=== PATIENT | female | born 1945 | race Caucasian/White ===

== ENCOUNTER 2017-04-24 11:36 | Outpatient (CLI) | payer MEDICARE, OTHER | END 2017-04-24 11:53 | LOC: D.MAMMO 11:36 | DX: Z12.31 Encounter for screening mammogram for malignant neoplasm of breast (principal) ==

== ENCOUNTER 2018-01-23 07:56 | Inpatient (IN) | payer MEDICARE, OTHER ==
[~2018-01-23] VITALS: Ht 172.7 cm; Wt 115.1 kg
--- NOTE | ~2018-01-23 | DS ---
PATIENT:SOTO BATES :47 MEDICAL RECORD: [id number] DISCHARGE SUMMARY ADMISSION DATE: 01/23/18 DISCHARGE DATE: 02/09/18 DATE OF ADMISSION: 01/23/2018. DATE OF DISCHARGE: 02/09/2018. ADMISSION DIAGNOSES: 1. Ventral hernia with large bowel obstruction. 2. Diabetes mellitus. 3. Hypertension. 4. Morbid obesity. 5. Chronic kidney disease. 6. Anemia of chronic kidney disease. DISCHARGE DIAGNOSES: 1. Ventral hernia with large bowel obstruction. 2. Diabetes mellitus. 3. Hypertension. 4. Morbid obesity. 5. Chronic kidney disease. 6. Anemia of chronic kidney disease. 7. Atrial fibrillation/flutter. 8. Sslnz-qo-nmnauaa kidney disease. PROCEDURE: Ventral hernia repair with removal of fibrinous fluid collection on 01/24/2018. CONSULTATIONS: To cardiology with Dr. Rodrigez, Nephrology with Dr. Kolb, hematology and oncology with Dr. Manning. REPORT OF HOSPITALIZATION: The patient was admitted to the hospital with abdominal pain and findings of an incarcerated hernia with partial large bowel obstruction secondary to this. The patient was able to be partially reduced with improvement in her symptoms and the following day, she was taken to the operating room where she underwent a ventral hernia repair with mesh and also removal of a large fibrinous anterior abdominal wall pocket that had no purulent material present. Postoperatively, the patient went into atrial fibrillation, so she was maintained in the hospital and cardiology was consulted. The patient was felt to have findings concerning for congestive heart failure and possibly a non-ST elevated ME. Cardiology wished to take the patient for a catheterization, but her kidney function quickly elevated and nephrology had to see the patient. There was concern over her worsening renal function and the catheterization was held off during this hospitalization. She was maintained in the hospital for a long time as they addressed her kidney function and felt that it was likely secondary to her diabetes mellitus. The decision for a biopsy of the kidney was held off for the time being secondary to the fact that the patient was on anticoagulants and it was felt that it was vital for the patient to stay on anticoagulants for her heart function. Eventually the patient's kidney function stabilized and actually improved and she began to diurese appropriately. Dr. Manning with hematology and oncology was consulted for anemia and possibly a lymphoproliferative disorder, still a lot of workup was performed and it was felt this was likely not a malignant process that was going on. Eventually, the patient recovered nicely and despite the fact she still had some DISCHARGE SUMMARY REPORT [id number] SUIT,NONDADEE vsrqb-vi-[id number] kidney disease, she was felt to be stable for discharge home. DISCHARGE INSTRUCTIONS: Return to clinic with any questions or concerns, fevers, chills, nausea, vomiting or worsening abdominal pain. ACTIVITIES: No heavy lifting or straining for 6 weeks postoperatively. DISCHARGE MEDICATIONS: Resume home medications with the inclusion of Lasix 60 mg b.i.d. and Olancha 10 p.r.n. FOLLOWUP: With nephrology, cardiology, and with Dr. Yañez in about 7-10 days. TRANSINT:[id number] Voice Confirmation ID: [id number] DOCUMENT ID: [id number] JORDAN YAÑEZ MD at 0922 CC: [id number] DICTATION DATE: 03/04/18 1352 METAL CONTAINER MAKER: 03/04/18 1423 DIS IN 02/09/18 [place] [id number] [place] [address]
--- NOTE | ~2018-01-23 | EC ---
PATIENT:JAMES BATESE DATE OF SERVICE: 01/23/18 SEX: F MEDICAL RECORD: [id number] DATE OF : 47 LOCATION:D.M2 D.211 AGE OF PATIENT: 72 ADMISSION DATE: 01/23/18 REFERRING PHYSICIAN: INTERPRETING PHYSICIAN: MODE RODRIGEZ MD ECHOCARDIOGRAM REPORT ECHO CHARGES 7 ECHO w/CONTRAST CLINICAL DIAGNOSIS: CONTRAST ECHO TO ASSESS EF AND WALL MOTION ECHOCARDIOGRAPHIC MEASUREMENTS (adult normal given) AC root (d.<3.7cm) 3.0 cm LV Septum d (<1.2 cm> 1.4 cm Valve Excursion 0.8 cm LV Septum (systole) 1.8 cm Left Atria (s.<4.0cm> 4.3 cm LVPW d(<1.2cm) 1.5 cm RV (d.<2.3cm) 2.0 cm LVPW (sytole) 2.0 cm LV diastole(<5.6CM) 5.1 cm MV E-F(>70mm/sec) cm LV systole 3.9 cm LVOT Diameter 1.8 cm MV exc.(>10mm) cm Est.ejection fraction (50-75%) % Pericardial Effusion N DOPPLER: LVIT cm/sec A cm/sec E 101 cm/sec LA cm/sec RVSP 22.0 mmHg LVOT 85.0 cm/sec AOP1/2T m/s Asc. Ao 179 cm/sec RVOT 61.0 cm/sec RA cm/sec PA 74.0 cm/sec AV Gradient Peak 13.0 mmHg AV Mean 6.2 mmHg AV Area 1.1 cm MV Gradient Peak 7.6 mmHg MV Mean 2.3 mmHg MV Area cm COMMENTS: Imaging Aide: 2 MIRZA WOOD Vp: 4 Dr. Rodrigez TAPE# PACSA DATE OF SERVICE: 02/04/2018 The patient underwent a contrasted echocardiogram. FINDINGS: The patient had contrasted material injected prior to visualization with the echocardiogram. We had excellent imaging after the contrast was injected and in fact showed no wall motion abnormalities now and ejection fraction had improved to 55%. The patient was seen to be in a normal rhythm during the procedure versus atrial flutter with controlled rate with marked improvement in her overall function without wall motion abnormalities as ECHOCARDIOGRAM REPORT [id number] SOTO BATES previously indicated. TRANSINT:[id number] Voice Confirmation ID: [id number] DOCUMENT ID: [id number] 02/11/2018 Edited to correct date of service, dmm. MODE RODRIGEZ MD at 1001 CC: [id number] DICTATION DATE: 02/05/18819 HELP DESK MANAGER: 02/05/18 1042 DIS IN 02/09/18 [place] [id number]
--- NOTE | ~2018-01-23 | OP ---
PATIENT NAME: SOTO BATES MEDICAL RECORD: [id number] :47 LOCATION:D.M2 D.2118 ADMISSION DATE:01/23/18 SURGEON: CARLOS YAÑEZ MD DATE OF OPERATION: 01/24/2018 PREOPERATIVE DIAGNOSES: 1. Ventral hernia. 2. Partial large bowel obstruction. POSTOPERATIVE DIAGNOSES: 1. Ventral hernia. 2. Partial large bowel obstruction. PROCEDURE: 1. Ventral hernia repair with an 11.4 cm Proceed mesh. 2. Drainage of anterior abdominal wall, cystic cavity. SURGEON: Carlos Yañez MD REPORT OF PROCEDURE: The patient's abdomen was prepped and draped in sterile fashion. A longitudinal incision was made overlying the hernia. We dissected down through the subcutaneous tissues and penetrated the hernia sac. Once in the hernia sac, we saw there was a large bowel and omentum present. None of this appeared to be necrotic. The hernia sac was dissected down on all sides and was excised down at the fascial edges. After we did this, we could see there actually a couple of other smaller hernia defects present. The fascial bridges were opened up on these defects and at this point, we were able to completely reduce the colon and omentum back into the abdominal cavity. We made sure to free up the edges of the hernia defect and saw there were 2 smaller ones just inferiorly, they were both less than a centimeter in size. The largest hernia defect was 4 cm long x 7cm wide. The fascia was cleared off in all directions. On the top and bottom surface any adhesions that would have been the way were taken down using electrocautery. Just inferior in the midline was a firm pocket that had been seen on CT scan. This pocket was not inflamed and not tender, but have been present for quite some time. The pocket was penetrated and there was no purulent material or fluid present, but there was some old necrotic/proteinaceous type material present and this was irrigated out and suctioned free. The pocket itself had inflammatory lott that did not appear to be infectious in anyway and did not appear to be cancerous. We removed the anterior surface of these lott and left the fascial surface intact. The anterior surface lott were sent off for permanent specimen. We then irrigated out the wound one last time with peroxide and saline. We then inserted the 11.4 cm Proceed mesh and sutured it into place in an underlay fashion using multiple interrupted 0 Prolene. The wound was irrigated one last time and the fascia was closed transversely using running #1 looped PDS. A 19-Pashto Sam drain was then inserted through the right lower quadrant and placed into the subcutaneous pouch overlying the fascial defect in this other pocket. The subcutaneous tissues were then reapproximated with interrupted 3-0 Vicryls and the skin was closed with ellie. COMPLICATIONS: None. CONDITION: Stable. ANESTHESIA: General endotracheal. OPERATIVE REPORT [id number] SUIT,NONDADEE BLOOD LOSS: 50 mL. TRANSINT:[id number] Voice Confirmation ID: [id number] DOCUMENT ID: [id number] CARLOS YAÑEZ MD at 1319 CC: CURT WILLAMS [id number] DICTATION DATE: 01/24/18 1300 WAREHOUSEMAN: 01/24/18 1328 ADM IN [place] [id number] [place] [id number]
--- NOTE | ~2018-01-23 | EC ---
PATIENT:PAULO,NONDADEE DATE OF SERVICE: 01/23/18 SEX: F MEDICAL RECORD: [id number] DATE OF : 47 LOCATION:D.M2 D.211 AGE OF PATIENT: 72 ADMISSION DATE: 01/23/18 REFERRING PHYSICIAN: INTERPRETING PHYSICIAN: MODE PENA MD ECHOCARDIOGRAM REPORT ECHO CHARGES 4 ECHO COMPLETE CLINICAL DIAGNOSIS: FLUTTER/TACHYCARDIA ECHOCARDIOGRAPHIC MEASUREMENTS (adult normal given) AC root (d.<3.7cm) 3.0 cm LV Septum d (<1.2 cm> 1.4 cm Valve Excursion 0.8 cm LV Septum (systole) 1.8 cm Left Atria (s.<4.0cm> 4.3 cm LVPW d(<1.2cm) 1.5 cm RV (d.<2.3cm) 2.0 cm LVPW (sytole) 2.0 cm LV diastole(<5.6CM) 5.1 cm MV E-F(>70mm/sec) cm LV systole 3.9 cm LVOT Diameter 1.8 cm MV exc.(>10mm) cm Est.ejection fraction (50-75%) % Pericardial Effusion N DOPPLER: LVIT cm/sec A cm/sec E 101 cm/sec LA cm/sec RVSP 22.0 mmHg LVOT 85.0 cm/sec AOP1/2T m/s Asc. Ao 179 cm/sec RVOT 61.0 cm/sec RA cm/sec PA 74.0 cm/sec AV Gradient Peak 13.0 mmHg AV Mean 6.2 mmHg AV Area 1.1 cm MV Gradient Peak 7.6 mmHg MV Mean 2.3 mmHg MV Area cm COMMENTS: Assistant To The Vice President: Frederic DOHERTYOE Cloth Checker: 4 Dr. Pena TAPE# PACS DATE OF SERVICE: 01/26/2018 PROCEDURE: Transthoracic echocardiogram. INDICATION: The patient has atrial flutter with rapid ventricular response. FINDINGS: 1. The left ventricle is difficult to visualize, but there appears to be anterior hypokinesis and overall ejection fraction of 30%, which may be a reflection of her heart rate, but also regional wall motion abnormality is seen. ECHOCARDIOGRAM REPORT [id number] PAULO,NONDADEE 2. Left atrium has mild dilatation. 3. Aortic valve is sclerotic and normal. 4. The mitral valve is not well visualized, but overall normal function with mild mitral regurgitation. Inflow characteristics were not helpful because of the presence of atrial flutter. 5. Tricuspid valve has mild tricuspid regurgitation. 6. The pericardium is normal. 7. Right ventricle is normal size, normal function. 8. The right atrium is mildly dilated. IMPRESSION: The patient does have regional wall motion abnormalities, evidence of left ventricular hypertrophy. The patient's cardiomyopathy may be ischemic in origin. TRANSINT:[id number] Voice Confirmation ID: [id number] DOCUMENT ID: [id number] 01/29/2018 Edited to correct date of service, dm. MODE PENA MD at 1115 CC: [id number] DICTATION DATE: 01/27/18 0733 PLASTIC PRINTER: 01/27/18 0952 ADM IN [place] [address] [place] [address]
[2018-01-23 08:48] LABS: BASOPHILS 0.2 % (0-2); HEMATOCRIT 31.8 % (36.0-48.0); HEMOGLOBIN 10.4 g/dL (12-16); IMMATURE GRANULOCYTES 0.4 % (0-5); LYMPHOCYTES 5.4 % (15-50); MCH 27.4 pg (26.0-34.0); MCHC 32.7 g/dL (31.0-37.0); MCV 83.9 fL (80.0-100.0); MEAN PLATELET VOLUME 9.8 fL (7.4-10.4); MONOCYTES 3.6 % (2-11); NEUTROPHILS 88.4 % (40-80); PLATELET COUNT 243 10x3/uL (130-400); RBC 3.79 10x6/uL (4.00-5.40); RDW 15.9 % (11.5-14.5)
[2018-01-23 09:19] LABS: ALBUMIN 3.1 g/dL (3.4-5.0); ANION GAP 17.9 mmol/L (8-16); BILIRUBIN - TOTAL 0.17 mg/dL (0.2-1.3); CALCIUM 8.3 mg/dL (8.5-10.1); CARBON DIOXIDE 19.1 mmol/L (21.0-32.0); CREATININE - SERUM 2.6 mg/dL (0.6-1.3); PROTEIN - SERUM 6.7 g/dL (6.4-8.2)
[2018-01-23 09:57] LABS: APPEARANCE SLT CLOUDY (CLEAR); COLOR YELLOW (YELLOW); SPECIFIC GRAVITY 1.015 (1.005-1.020)
[2018-01-23 09:58] LABS: AMORPHOUS SEDIMENT <1+ /lpf (NONE SEEN); BACTERIA MODERATE /hpf (NONE SEEN); BILIRUBIN NEGATIVE (NEGATIVE); EPITHELIAL CELLS OCC /hpf (0-5); GLUCOSE 100 mg/dL (NEGATIVE); KETONE NEGATIVE (NEGATIVE); MUCUS <1+ /lpf (NONE SEEN); NITRITE NEGATIVE (NEGATIVE); PROTEIN 3+ mg/dL (NEGATIVE); RED CELLS - URINE OCC /hpf (0-5); UROBILINOGEN NORMAL (NORMAL); WHITE CELLS - URINE OCC /hpf (0-5)
[2018-01-23] MEDS ORDERED: EFFEXOR37.5 MG PO (17:18)
[2018-01-23] MEDS ORDERED: CARDURA4 MG PO (17:19)
[2018-01-23] MEDS ORDERED: SYNTHROID50 MCG PO (17:20)
[2018-01-23] MEDS ORDERED: GLUCOTROL XL 1010 MG PO (17:21)
[2018-01-23] MEDS ORDERED: NORVASC10 MG PO (17:21)
[2018-01-23] MEDS ORDERED: VITAMIN D250000 UNIT PO (17:22)
[2018-01-23] MEDS ORDERED: KLOR-CON M2020 MEQ (17:23)
[2018-01-23] MEDS ORDERED: LIPITOR80 MG PO (17:24)
[2018-01-23] MEDS ORDERED: METOPROLOL TART25 MG PO (17:24)
[2018-01-23] MEDS ORDERED: JANUVIA50 MG PO (17:25)
[2018-01-23] MEDS ORDERED: COZAAR100 MG PO (17:27)
[2018-01-23] MEDS ORDERED: ACETAMINOPHEN325 MG PO (17:27)
[2018-01-23 19:04] VITALS: BP 133/64; BMI 35.0
[2018-01-23 20:00] VITALS: BP 135/72
[2018-01-24] VITALS (14 sets, daily range): BP systolic 117–153; BP diastolic 69–91; BMI 34.9
[2018-01-24 04:38] LABS: BASOPHILS 0.3 % (0-2); HEMATOCRIT 27.8 % (36.0-48.0); HEMOGLOBIN 8.9 g/dL (12-16); IMMATURE GRANULOCYTES 0.2 % (0-5); LYMPHOCYTES 7.3 % (15-50); MCH 27.2 pg (26.0-34.0); MEAN PLATELET VOLUME 10.3 fL (7.4-10.4); MONOCYTES 6.3 % (2-11); NEUTROPHILS 82.9 % (40-80); PLATELET COUNT 223 10x3/uL (130-400); RBC 3.27 10x6/uL (4.00-5.40); WBC 10.6 10x3/uL (4.8-10.8)
[2018-01-24 04:54] LABS: ANION GAP 12.2 mmol/L (8-16); CALCIUM 7.6 mg/dL (8.5-10.1); CREATININE - SERUM 2.3 mg/dL (0.6-1.3); POTASSIUM - SERUM 3.2 mmol/L (3.5-5.1)
[2018-01-25 04:00] VITALS: BP 149/79
[2018-01-25 09:19] VITALS: BP 109/75
[2018-01-25 12:45] VITALS: BP 153/79
[2018-01-25 14:45] VITALS: BP 144/82
[2018-01-25 21:18] VITALS: BP 145/84
[2018-01-26] VITALS: BP 178/94
[2018-01-26 04:00] VITALS: BP 157/92
[2018-01-26 08:33] VITALS: BP 155/91
[2018-01-26 10:49] LABS: CKMB 11.5 U/L (0.0-3.6); CREATINE KINASE 884 UL (21-215)
[2018-01-26 12:36] VITALS: BP 118/75
[2018-01-26 15:52] VITALS: Ht 172.7 cm; Wt 115.1 kg
[2018-01-26 16:13] LABS: CKMB 8.2 U/L (0.0-3.6); CREATINE KINASE 782 UL (21-215); TROPONIN-I 0.038 ng/mL (0.000-0.060)
[2018-01-26 17:01] VITALS: BP 136/73
[2018-01-26 20:00] VITALS: BP 145/79
[2018-01-26 22:38] LABS: CREATINE KINASE 743 UL (21-215); TROPONIN-I 0.027 ng/mL (0.000-0.060)
[2018-01-27] VITALS (7 sets, daily range): BP systolic 106–138; BP diastolic 62–89
[2018-01-27 19:55] LABS: BASOPHILS 0.2 % (0-2); EOSINOPHILS 4.3 % (0-7); HEMATOCRIT 26.4 % (36.0-48.0); HEMOGLOBIN 8.3 g/dL (12-16); IMMATURE GRANULOCYTES 0.7 % (0-5); LYMPHOCYTES 7.3 % (15-50); MCH 27.3 pg (26.0-34.0); MCHC 31.4 g/dL (31.0-37.0); MCV 86.8 fL (80.0-100.0); MEAN PLATELET VOLUME 9.8 fL (7.4-10.4); MONOCYTES 6.9 % (2-11); NEUTROPHILS 80.6 % (40-80); PLATELET COUNT 265 10x3/uL (130-400); RBC 3.04 10x6/uL (4.00-5.40); RDW 16.5 % (11.5-14.5); WBC 12.1 10x3/uL (4.8-10.8)
[2018-01-27 20:08] LABS: ANION GAP 5.6 mmol/L (8-16); CALCIUM 8.5 mg/dL (8.5-10.1); CARBON DIOXIDE 21.3 mmol/L (21.0-32.0); CREATININE - SERUM 3.6 mg/dL (0.6-1.3); POTASSIUM - SERUM 3.9 mmol/L (3.5-5.1)
[2018-01-28 04:00] VITALS: BP 123/59
[2018-01-28 08:06] VITALS: BP 128/59
[2018-01-28 11:14] VITALS: BP 132/66
[2018-01-28 14:56] VITALS: BP 137/72
[2018-01-28 20:56] VITALS: BP 124/59
[2018-01-29 01:20] VITALS: BP 130/75
[2018-01-29 05:43] LABS: BASOPHILS 0.3 % (0-2); EOSINOPHILS 5.2 % (0-7); HEMOGLOBIN 9.5 g/dL (12-16); IMMATURE GRANULOCYTES 0.6 % (0-5); LYMPHOCYTES 10.1 % (15-50); MCH 27.5 pg (26.0-34.0); MCHC 31.7 g/dL (31.0-37.0); MEAN PLATELET VOLUME 9.9 fL (7.4-10.4); MONOCYTES 8.7 % (2-11); NEUTROPHILS 75.1 % (40-80); PLATELET COUNT 265 10x3/uL (130-400); RBC 3.45 10x6/uL (4.00-5.40); RDW 16.2 % (11.5-14.5)
[2018-01-29 05:46] LABS: WBC 8.8 10x3/uL (4.8-10.8)
[2018-01-29 06:05] LABS: ANION GAP 14.1 mmol/L (8-16); CALCIUM 8.6 mg/dL (8.5-10.1); CARBON DIOXIDE 23.2 mmol/L (21.0-32.0); CREATININE - SERUM 3.6 mg/dL (0.6-1.3); POTASSIUM - SERUM 4.3 mmol/L (3.5-5.1)
[2018-01-29 06:40] VITALS: BP 138/75
[2018-01-29 08:04] VITALS: BP 130/68
[2018-01-29 08:33] LABS: COMPLEMENT C4 23.1 mg/dL (17.4-52.2)
[2018-01-29 09:20] LABS: ERYTHROCYTE SEDIMENTATION RATE 57 mm/hr (0-30)
[2018-01-29 11:04] VITALS: BP 126/72
[2018-01-29 12:14] LABS: APPEARANCE CLEAR (CLEAR); BACTERIA FEW /hpf (NONE SEEN); BILIRUBIN NEGATIVE (NEGATIVE); COLOR YELLOW (YELLOW); EPITHELIAL CELLS 0-5 /hpf (0-5); GLUCOSE NEGATIVE (NEGATIVE); KETONE NEGATIVE (NEGATIVE); MUCUS >1+ /lpf (NONE SEEN); NITRITE NEGATIVE (NEGATIVE); PROTEIN 3+ mg/dL (NEGATIVE); RED CELLS - URINE 0-5 /hpf (0-5); SPECIFIC GRAVITY 1.015 (1.005-1.020); UROBILINOGEN NORMAL (NORMAL); WHITE CELLS - URINE OCC /hpf (0-5)
[2018-01-29 14:39] VITALS: BP 134/69
[2018-01-29 20:39] VITALS: BP 149/74
[2018-01-30] VITALS: BP 116/49
[2018-01-30 04:53] VITALS: BP 114/66
[2018-01-30 06:01] LABS: BASOPHILS 0.4 % (0-2); EOSINOPHILS 6.1 % (0-7); HEMATOCRIT 30.1 % (36.0-48.0); HEMOGLOBIN 9.5 g/dL (12-16); IMMATURE GRANULOCYTES 0.9 % (0-5); MCH 27.4 pg (26.0-34.0); MCHC 31.6 g/dL (31.0-37.0); MCV 86.7 fL (80.0-100.0); MEAN PLATELET VOLUME 9.9 fL (7.4-10.4); MONOCYTES 8.6 % (2-11); PLATELET COUNT 286 10x3/uL (130-400); RBC 3.47 10x6/uL (4.00-5.40); RDW 15.9 % (11.5-14.5)
[2018-01-30 07:10] LABS: CALC OSMOLALITY 300 mosm/kg (275-300); CALCIUM 8.5 mg/dL (8.5-10.1); CARBON DIOXIDE 23.5 mmol/L (21.0-32.0); CHLORIDE - SERUM 109 mmol/L (98-107); CKMB 4.1 U/L (0.0-3.6); CREATINE KINASE 484 UL (21-215); CREATININE - SERUM 3.6 mg/dL (0.6-1.3); GLUCOSE 126 mg/dL (74-106); PHOSPHOROUS 5.1 mg/dL (2.5-4.9); SODIUM 142 mmol/L (136-145); UREA NITROGEN 57 mg/dL (7-18); eGFR NON AFRICAN AMERICAN 13 mL/min (90-120)
[2018-01-30 08:09] VITALS: BP 124/59
[2018-01-30 08:20] LABS: HEPATITIS C ANTIBODY 0.1 (0.0-0.9)
[2018-01-30 11:19] VITALS: BP 141/70
[2018-01-30 13:15] LABS: ANA REFLEX - DIRECT Negative (Negative)
[2018-01-30 15:22] VITALS: BP 115/60
[2018-01-30 20:59] VITALS: BP 164/74
[2018-01-31 00:36] VITALS: BP 142/75
[2018-01-31 00:43] LABS: CREATININE - URINE 54.1 mg/dL (30-125); PROTEIN - URINE 86.2 mg/dL (0.0-11.9)
[2018-01-31 05:37] LABS: BASOPHILS 0.5 % (0-2); EOSINOPHILS 6.7 % (0-7); HEMATOCRIT 31.3 % (36.0-48.0); HEMOGLOBIN 9.7 g/dL (12-16); IMMATURE GRANULOCYTES 0.8 % (0-5); LYMPHOCYTES 16.2 % (15-50); MCH 27.3 pg (26.0-34.0); MCV 88.2 fL (80.0-100.0); MONOCYTES 8.6 % (2-11); NEUTROPHILS 67.2 % (40-80); PLATELET COUNT 310 10x3/uL (130-400); RBC 3.55 10x6/uL (4.00-5.40); RDW 15.8 % (11.5-14.5); WBC 8.7 10x3/uL (4.8-10.8)
[2018-01-31 05:47] LABS: ANION GAP 14.9 mmol/L (8-16); CALCIUM 8.1 mg/dL (8.5-10.1); CARBON DIOXIDE 23.5 mmol/L (21.0-32.0); CREATININE - SERUM 3.5 mg/dL (0.6-1.3); MAGNESIUM - SERUM 2.8 mg/dL (1.8-2.4); PHOSPHOROUS 5.8 mg/dL (2.5-4.9); POTASSIUM - SERUM 4.4 mmol/L (3.5-5.1)
[2018-01-31 07:28] LABS: UPE RAND - ALPHA 1 GLOBULIN 5.2 % (()); UPE RAND - BETA GLOBULIN 13.2 % (()); UPE RAND - GAMMA GLOBULIN 19.5 % (())
[2018-01-31 08:18] LABS: SPE - A/G RATIO 0.7 (0.7-1.7); SPE - ALBUMIN 2.3 g/dL (2.9-4.4); SPE - ALPHA-1 GLOBULIN 0.5 g/dL (0.0-0.4); SPE - BETA GLOBULIN 0.8 g/dL (0.7-1.3); SPE - GAMMA GLOBULIN 0.9 g/dL (0.4-1.8); SPE - M-SPIKE Not Observed g/dL (Not Observed); SPE - TOTAL PROTEIN 5.6 g/dL (6.0-8.5)
[2018-01-31 08:18] LABS: ANTI-GLOMERULAR BASMENT MEMBRN 5 units (0-20)
[2018-01-31 08:39] VITALS: BP 127/64
[2018-01-31 14:23] VITALS: BP 114/73
[2018-01-31 16:01] VITALS: BP 120/58
[2018-01-31 16:14] LABS: ANCA - ANTIMYELOPEROXIDASE <9.0 U/mL (0.0-9.0); ANCA - ANTIPROTEINASE 3 <3.5 U/mL (0.0-3.5); ANCA - ATYPICAL <1:20 titer (Neg:<1:20); ANCA - CYTOPLASMIC <1:20 titer (Neg:<1:20); ANCA - PERINUCLEAR <1:20 titer (Neg:<1:20)
[2018-01-31 19:00] VITALS: BP 134/65
[2018-02-01] VITALS: BP 138/60
[2018-02-01 04:00] VITALS: BP 116/69
[2018-02-01 04:40] LABS: BASOPHILS 0.6 % (0-2); EOSINOPHILS 6.9 % (0-7); HEMATOCRIT 30.8 % (36.0-48.0); HEMOGLOBIN 9.4 g/dL (12-16); LYMPHOCYTES 14.4 % (15-50); MCH 27.1 pg (26.0-34.0); MCHC 30.5 g/dL (31.0-37.0); MCV 88.8 fL (80.0-100.0); MEAN PLATELET VOLUME 9.7 fL (7.4-10.4); MONOCYTES 8.8 % (2-11); NEUTROPHILS 68.3 % (40-80); PLATELET COUNT 289 10x3/uL (130-400); RBC 3.47 10x6/uL (4.00-5.40); RDW 15.9 % (11.5-14.5); WBC 8.8 10x3/uL (4.8-10.8)
[2018-02-01 04:56] LABS: ANION GAP 13.7 mmol/L (8-16); CALCIUM 8.2 mg/dL (8.5-10.1); CARBON DIOXIDE 24.2 mmol/L (21.0-32.0); CREATININE - SERUM 3.4 mg/dL (0.6-1.3); PHOSPHOROUS 5.5 mg/dL (2.5-4.9); POTASSIUM - SERUM 3.9 mmol/L (3.5-5.1)
[2018-02-01 07:46] VITALS: BP 129/68
[2018-02-01 11:39] VITALS: BP 126/69
[2018-02-01 15:34] VITALS: BP 143/70
[2018-02-01 20:00] VITALS: BP 138/65
[2018-02-02 04:00] VITALS: BP 136/72
[2018-02-02 05:43] LABS: BASOPHILS 0.5 % (0-2); EOSINOPHILS 5.8 % (0-7); HEMATOCRIT 29.2 % (36.0-48.0); IMMATURE GRANULOCYTES 0.8 % (0-5); LYMPHOCYTES 8.9 % (15-50); MCH 27.4 pg (26.0-34.0); MCHC 30.8 g/dL (31.0-37.0); MCV 88.8 fL (80.0-100.0); MONOCYTES 8.6 % (2-11); NEUTROPHILS 75.4 % (40-80); PLATELET COUNT 301 10x3/uL (130-400); RBC 3.29 10x6/uL (4.00-5.40); RDW 15.8 % (11.5-14.5); WBC 9.9 10x3/uL (4.8-10.8)
[2018-02-02 06:06] LABS: ANION GAP 13.4 mmol/L (8-16); CALCIUM 8.5 mg/dL (8.5-10.1); CARBON DIOXIDE 24.5 mmol/L (21.0-32.0); CREATININE - SERUM 3.2 mg/dL (0.6-1.3); PHOSPHOROUS 6.2 mg/dL (2.5-4.9); POTASSIUM - SERUM 3.9 mmol/L (3.5-5.1)
[2018-02-02 08:59] VITALS: BP 155/83
[2018-02-02 13:10] VITALS: BP 121/61
[2018-02-02 15:55] VITALS: BP 139/70
[2018-02-02 19:36] VITALS: BP 140/78
[2018-02-03 01:33] VITALS: BP 111/54
[2018-02-03 05:53] VITALS: BP 129/64
[2018-02-03 05:56] LABS: BASOPHILS 0.3 % (0-2); EOSINOPHILS 5.1 % (0-7); HEMOGLOBIN 8.6 g/dL (12-16); IMMATURE GRANULOCYTES 0.9 % (0-5); MCHC 30.7 g/dL (31.0-37.0); MCV 87.8 fL (80.0-100.0); MEAN PLATELET VOLUME 10.2 fL (7.4-10.4); MONOCYTES 7.4 % (2-11); NEUTROPHILS 75.3 % (40-80); PLATELET COUNT 282 10x3/uL (130-400); RBC 3.19 10x6/uL (4.00-5.40); RDW 15.7 % (11.5-14.5); WBC 8.7 10x3/uL (4.8-10.8)
[2018-02-03 06:26] LABS: ANION GAP 14.7 mmol/L (8-16); CALCIUM 7.7 mg/dL (8.5-10.1); CARBON DIOXIDE 23.8 mmol/L (21.0-32.0); CREATININE - SERUM 3.3 mg/dL (0.6-1.3); PHOSPHOROUS 5.5 mg/dL (2.5-4.9); POTASSIUM - SERUM 3.5 mmol/L (3.5-5.1)
[2018-02-03 08:46] VITALS: BP 123/52
[2018-02-03 12:54] VITALS: BP 130/60
[2018-02-03 16:11] VITALS: BP 124/60
[2018-02-03 19:00] VITALS: BP 150/70
[2018-02-04 04:00] VITALS: BP 139/70
[2018-02-04 04:53] LABS: BASOPHILS 0.5 % (0-2); EOSINOPHILS 5.8 % (0-7); HEMATOCRIT 30.5 % (36.0-48.0); HEMOGLOBIN 9.3 g/dL (12-16); IMMATURE GRANULOCYTES 0.9 % (0-5); MCH 27.3 pg (26.0-34.0); MCHC 30.5 g/dL (31.0-37.0); MCV 89.4 fL (80.0-100.0); MONOCYTES 8.3 % (2-11); NEUTROPHILS 72.5 % (40-80); PLATELET COUNT 277 10x3/uL (130-400); RBC 3.41 10x6/uL (4.00-5.40); RDW 15.9 % (11.5-14.5); WBC 8.8 10x3/uL (4.8-10.8)
[2018-02-04 05:07] LABS: ANION GAP 13.2 mmol/L (8-16); CALCIUM 8.4 mg/dL (8.5-10.1); CARBON DIOXIDE 27.7 mmol/L (21.0-32.0); CREATININE - SERUM 3.5 mg/dL (0.6-1.3); POTASSIUM - SERUM 3.9 mmol/L (3.5-5.1)
[2018-02-04 08:02] VITALS: BP 135/68
[2018-02-04 11:34] VITALS: BP 194/94
[2018-02-04 16:13] VITALS: BP 130/65
[2018-02-04 20:00] VITALS: BP 139/70
[2018-02-05 04:00] VITALS: BP 124/68
[2018-02-05 05:40] LABS: BASOPHILS 0.6 % (0-2); EOSINOPHILS 7.1 % (0-7); HEMATOCRIT 31.9 % (36.0-48.0); HEMOGLOBIN 9.8 g/dL (12-16); IMMATURE GRANULOCYTES 0.8 % (0-5); LYMPHOCYTES 12.1 % (15-50); MCH 27.5 pg (26.0-34.0); MCHC 30.7 g/dL (31.0-37.0); MCV 89.4 fL (80.0-100.0); MONOCYTES 7.8 % (2-11); NEUTROPHILS 71.6 % (40-80); PLATELET COUNT 288 10x3/uL (130-400); RBC 3.57 10x6/uL (4.00-5.40); RDW 15.5 % (11.5-14.5); WBC 8.8 10x3/uL (4.8-10.8)
[2018-02-05 05:52] LABS: ANION GAP 13.6 mmol/L (8-16); CALCIUM 8.2 mg/dL (8.5-10.1); CARBON DIOXIDE 29.2 mmol/L (21.0-32.0); CREATININE - SERUM 3.3 mg/dL (0.6-1.3); POTASSIUM - SERUM 3.8 mmol/L (3.5-5.1)
[2018-02-05 08:00] VITALS: BP 136/61
[2018-02-05 12:34] VITALS: BP 116/66
[2018-02-05 17:14] VITALS: BP 134/62
[2018-02-05 20:12] VITALS: BP 138/67
[2018-02-06 02:32] VITALS: BP 135/97
[2018-02-06 06:10] LABS: BASOPHILS 0.5 % (0-2); EOSINOPHILS 6.1 % (0-7); HEMATOCRIT 30.9 % (36.0-48.0); HEMOGLOBIN 9.4 g/dL (12-16); IMMATURE GRANULOCYTES 0.7 % (0-5); LYMPHOCYTES 11.5 % (15-50); MCH 27.2 pg (26.0-34.0); MCHC 30.4 g/dL (31.0-37.0); MCV 89.3 fL (80.0-100.0); MEAN PLATELET VOLUME 10.2 fL (7.4-10.4); MONOCYTES 8.2 % (2-11); PLATELET COUNT 273 10x3/uL (130-400); RBC 3.46 10x6/uL (4.00-5.40); RDW 15.5 % (11.5-14.5); WBC 10.3 10x3/uL (4.8-10.8)
[2018-02-06 06:23] VITALS: BP 131/65
[2018-02-06 06:33] LABS: CALCIUM 8.2 mg/dL (8.5-10.1); CARBON DIOXIDE 29.3 mmol/L (21.0-32.0); CREATININE - SERUM 3.5 mg/dL (0.6-1.3); POTASSIUM - SERUM 3.3 mmol/L (3.5-5.1)
[2018-02-06 07:39] VITALS: BP 134/71
[2018-02-06 11:56] VITALS: BP 121/68
[2018-02-06 15:32] VITALS: BP 141/72
[2018-02-06 20:00] VITALS: BP 140/58
[2018-02-07 04:00] VITALS: BP 141/68
[2018-02-07 06:35] LABS: BASOPHILS 0.9 % (0-2); EOSINOPHILS 7.2 % (0-7); HEMATOCRIT 33.4 % (36.0-48.0); HEMOGLOBIN 10.2 g/dL (12-16); IMMATURE GRANULOCYTES 0.6 % (0-5); LYMPHOCYTES 16.9 % (15-50); MCH 27.6 pg (26.0-34.0); MCHC 30.5 g/dL (31.0-37.0); MCV 90.5 fL (80.0-100.0); MEAN PLATELET VOLUME 10.4 fL (7.4-10.4); MONOCYTES 6.7 % (2-11); NEUTROPHILS 67.7 % (40-80); PLATELET COUNT 274 10x3/uL (130-400); RBC 3.69 10x6/uL (4.00-5.40); RDW 15.3 % (11.5-14.5); WBC 10.3 10x3/uL (4.8-10.8)
[2018-02-07 07:12] LABS: ANION GAP 16.1 mmol/L (8-16); CALCIUM 8.3 mg/dL (8.5-10.1); CARBON DIOXIDE 30.4 mmol/L (21.0-32.0); CREATININE - SERUM 3.5 mg/dL (0.6-1.3); POTASSIUM - SERUM 3.5 mmol/L (3.5-5.1)
[2018-02-07 08:26] VITALS: BP 153/79
[2018-02-07 11:13] VITALS: BP 143/75
[2018-02-07 15:14] VITALS: BP 125/68
[2018-02-08 01:18] VITALS: BP 161/59
[2018-02-08 02:02] LABS: APPEARANCE CLEAR (CLEAR); BACTERIA FEW /hpf (NONE SEEN); BILIRUBIN NEGATIVE (NEGATIVE); COLOR YELLOW (YELLOW); EPITHELIAL CELLS NSEEN /hpf (0-5); GLUCOSE NEGATIVE (NEGATIVE); KETONE NEGATIVE (NEGATIVE); NITRITE NEGATIVE (NEGATIVE); PROTEIN TRACE mg/dL (NEGATIVE); UROBILINOGEN NORMAL (NORMAL); WHITE CELLS - URINE 0-5 /hpf (0-5)
[2018-02-08 06:37] VITALS: BP 166/64
[2018-02-08 07:09] LABS: BASOPHILS 0.8 % (0-2); EOSINOPHILS 7.2 % (0-7); HEMATOCRIT 33.6 % (36.0-48.0); HEMOGLOBIN 10.3 g/dL (12-16); IMMATURE GRANULOCYTES 0.5 % (0-5); LYMPHOCYTES 16.6 % (15-50); MCH 27.5 pg (26.0-34.0); MCHC 30.7 g/dL (31.0-37.0); MCV 89.6 fL (80.0-100.0); MEAN PLATELET VOLUME 10.5 fL (7.4-10.4); MONOCYTES 5.2 % (2-11); NEUTROPHILS 69.7 % (40-80); PLATELET COUNT 295 10x3/uL (130-400); RBC 3.75 10x6/uL (4.00-5.40); RDW 15.4 % (11.5-14.5); WBC 11.3 10x3/uL (4.8-10.8)
[2018-02-08 07:21] LABS: ANION GAP 11.1 mmol/L (8-16); CALCIUM 9.1 mg/dL (8.5-10.1); CARBON DIOXIDE 32.9 mmol/L (21.0-32.0); CREATININE - SERUM 3.7 mg/dL (0.6-1.3)
[2018-02-08 08:44] VITALS: BP 130/55
[2018-02-08 11:49] VITALS: BP 122/58
[2018-02-08 17:00] VITALS: BP 138/67
[2018-02-08 19:00] VITALS: BP 84/50
[2018-02-09] VITALS: BP 143/59; BP 91/49
[2018-02-09 04:00] VITALS: BP 145/81
[2018-02-09 08:26] VITALS: BP 137/59
[2018-02-09] MEDS ORDERED: LASIX40 MG PO (09:46)
[2018-02-09] MEDS ORDERED: HYDROCODONE-APA1 TAB PO (09:46)
[2018-02-09 11:37] VITALS: BP 112/68
[2018-02-14 19:12] LABS: AEROBE ID Final report (())
== END 2018-02-09 15:30 | disposition home or self-care (01) | DRG 353 ==
LOC: D.ER 07:56 → D.EDHOLD 12:50 → D.MS 12:50 → D.M2 12:50 → D.MS 15:17 → D.M2 01-26 18:36
PROVIDERS: Emergency Medicine; Internal Medicine Cardiovascular Disease; Internal Medicine Nephrology; Surgery
PROC: 0W9F0ZZ Drainage of Abdominal Wall, Open Approach (ICD-10-PCS; 2018-01-24)
PROC: 0WUF0JZ Supplement Abdominal Wall with Synthetic Substitute, Open Approach (ICD-10-PCS; principal; 2018-01-24 10:00)
DX: K43.6 Other and unspecified ventral hernia with obstruction, without gangrene (principal); I21.4 Non-ST elevation (NSTEMI) myocardial infarction; I48.92 Unspecified atrial flutter; D62 Acute posthemorrhagic anemia; N17.9 Acute kidney failure, unspecified; N39.0 Urinary tract infection, site not specified; I50.22 Chronic systolic (congestive) heart failure; I10 Essential (primary) hypertension; B43.2 Subcutaneous pheomycotic abscess and cyst; I25.2 Old myocardial infarction; K59.00 Constipation, unspecified

== ENCOUNTER → 2018-05-27 14:10 | Outpatient (CLI) | payer MEDICARE, OTHER ==
[2018-01-26 15:52] VITALS: BMI 34.9
[~2018-05-27 14:10] MED LIST: ACETAMINOPHEN325 MG PO; CARDURA4 MG PO; COZAAR100 MG PO; EFFEXOR37.5 MG PO; GLUCOTROL XL 1010 MG PO; HYDROCODONE-APA1 TAB PO; JANUVIA50 MG PO; KLOR-CON M2020 MEQ; LASIX40 MG PO; LIPITOR80 MG PO; METOPROLOL TART25 MG PO; NORVASC10 MG PO; SYNTHROID50 MCG PO; VITAMIN D250000 UNIT PO
== END | disposition home or self-care (01) ==
LOC: D.CT 14:00
DX: D63.1 Anemia in chronic kidney disease (principal)

== ENCOUNTER → 2018-06-03 10:30 | Outpatient (CLI) | payer MEDICARE, OTHER ==
[2018-01-26 15:52] VITALS: BMI 34.9
[~2018-06-03 10:30] MED LIST changes: +BENZONATATE200 MG PO; +FLORAJEN3 CAPS460 MG PO; +FOLATE0.4 MG PO; +HYDROCODON-ACE1 EAC7 PO; +K-DUR20 MEQ PO; +MUCINEX DM ER1 EAC1 PO; +OMNICEF300 MG PO; +OS-CAL500 MG PO; +ROCALTROL0.25 MCG PO; +VENTOLIN HFA18 GM INH; +ZETIA10 MG PO; +ZITHROMAX500 MG PO
== END | disposition home or self-care (01) ==
LOC: D.US 10:30
DX: D63.1 Anemia in chronic kidney disease (principal); R93.8 Abnormal findings on diagnostic imaging of other specified body structures

== ENCOUNTER 2018-06-19 06:33 | Day surgery (SDC) | payer MEDICARE, OTHER ==
[~2018-06-19] VITALS: Ht 175.3 cm; Wt 98.9 kg
--- NOTE | ~2018-06-19 | OP ---
PATIENT NAME: SOTO BATES MEDICAL RECORD: [id number] :47 LOCATION:D.OPS ADMISSION DATE: SURGEON: CARLOS YAÑEZ MD DATE OF OPERATION: 06/19/2018 PREOPERATIVE DIAGNOSES: 1. End-stage renal disease. 2. Atrial fibrillation. 3. Hypertension. 4. Hypercholesterolemia. 5. Diabetes mellitus. 6. Hypothyroidism. POSTOPERATIVE DIAGNOSES: 1. End-stage renal disease. 2. Atrial fibrillation. 3. Hypertension. 4. Hypercholesterolemia. 5. Diabetes mellitus. 6. Hypothyroidism. PROCEDURE: Left antecubital to brachial AV fistula. SURGEON: Carlos Yañez MD SCHOOL EXAMINER: Amita Pena APRN REPORT OF PROCEDURE: The patient's left upper extremity was prepped and draped in sterile fashion after a regional block had been performed. Ultrasound was used to inspect the left upper extremity vessels and she had a large cephalic vein extending down to the antecubital space. The patient had an adequate artery present. A transverse incision was made just underneath the band of the left elbow and electrocautery was used to dissect through the subcutaneous tissues. We first dissected out the antecubital vein. Once we came around this tissue, we left it alone, we then began our dissection to the brachial artery. We were able to dissect this tissue out prior to it bifurcating. The brachial artery had a good palpable pulse. Vessel loops were placed around it proximally and distally. At this point, the patient was given 5000 units of heparin IV. The vein was then clamped distally and transected. This vein was tied off with a 3-0 silk tie. The proximal aspect of the vein was flushed with heparinized saline. This had good blood return in a retrograde fashion. An opening was then made in the artery and we flushed the artery proximally and distally with heparinized saline. An end-to-side anastomosis was performed of the vein to the artery using a running 7-0 Prolene. At the conclusion of the case, there was a good palpable thrill through the vessel. The thrill extended up just above the patient's elbow. We did not see any evidence of any active bleeding at that time. The patient's hand appeared to be viable and warm. She did not have a good radial pulse preoperatively and continued not to have much one postoperatively. The patient did have 3 large branches coming off the cephalic vein. Using ultrasound guidance, we localized these branches and skin incisions were made times 3 overlying the fistula and the branches were tied off with 3-0 silk tie. At the conclusion of the case, the patient had a good palpable thrill still present. The subcutaneous tissues were reapproximated with interrupted 3-0 Vicryls and then the skin incisions were closed with running subcutaneous 5-0 Monocryl. OPERATIVE REPORT [id number] SUIT,NONDADEE COMPLICATIONS: None. CONDITION: Stable. ANESTHESIA: Regional and TIVA. BLOOD LOSS: 30 mL. TRANSINT:[id number] Voice Confirmation ID: [id number] DOCUMENT ID: [id number] CARLOS YAÑEZ MD at 0801 CC: SRINIVASA JAIME MD and CURT WILLAMS [id number] DICTATION DATE: 06/19/18 1129 CORN BREEDER: 06/19/18 1159 [facility] 06/19/18 [place] [id number] [place] [address]
[~2018-06-19 06:33] MED LIST changes: -BENZONATATE200 MG PO; -FLORAJEN3 CAPS460 MG PO; -FOLATE0.4 MG PO; -HYDROCODON-ACE1 EAC7 PO; -K-DUR20 MEQ PO; -MUCINEX DM ER1 EAC1 PO; -OMNICEF300 MG PO; -OS-CAL500 MG PO; -ROCALTROL0.25 MCG PO; -VENTOLIN HFA18 GM INH; -ZETIA10 MG PO; -ZITHROMAX500 MG PO
[2018-06-19 07:00] LABS: BASOPHILS 0.8 % (0-2); EOSINOPHILS 4.9 % (0-7); HEMATOCRIT 31.4 % (36.0-48.0); HEMOGLOBIN 10.1 g/dL (12-16); IMMATURE GRANULOCYTES 0.1 % (0-5); LYMPHOCYTES 13.9 % (15-50); MCH 28.2 pg (26.0-34.0); MCHC 32.2 g/dL (31.0-37.0); MCV 87.7 fL (80.0-100.0); MEAN PLATELET VOLUME 9.5 fL (7.4-10.4); MONOCYTES 5.6 % (2-11); NEUTROPHILS 74.7 % (40-80); PLATELET COUNT 217 10x3/uL (130-400); RBC 3.58 10x6/uL (4.00-5.40); RDW 15.8 % (11.5-14.5); WBC 9.3 10x3/uL (4.8-10.8)
[2018-06-19 07:16] LABS: APTT 31.9 SECONDS (22.8-39.4); INR 1.09 (0.85-1.17); PROTIME 13.7 SECONDS (11.6-15.0)
[2018-06-19 07:52] LABS: CALCIUM 9.1 mg/dL (8.5-10.1); CARBON DIOXIDE 25.2 mmol/L (21.0-32.0); CREATININE - SERUM 3.1 mg/dL (0.6-1.3); POTASSIUM - SERUM 3.2 mmol/L (3.5-5.1)
[2018-06-19 08:01] VITALS: BP 153/84; Ht 175.3 cm; Wt 98.9 kg
[2018-06-19] MEDS ORDERED: HYDROCODONE-APA1 TAB PO (11:19)
== END 2018-06-19 13:00 | disposition home or self-care (01) ==
LOC: D.OPS 06:33 → D.PAN 09:00 → D.OPS 13:00
PROVIDERS: Surgery
DX: E11.22 Type 2 diabetes mellitus with diabetic chronic kidney disease (principal); I12.0 Hypertensive chronic kidney disease with stage 5 chronic kidney disease or end stage renal disease; N18.6 End stage renal disease; I48.91 Unspecified atrial fibrillation; E78.00 Pure hypercholesterolemia, unspecified; E03.9 Hypothyroidism, unspecified; Z01.812 Encounter for preprocedural laboratory examination

== ENCOUNTER 2018-08-07 09:57 | Inpatient (IN) | payer MEDICARE, OTHER ==
[~2018-08-07] VITALS: Ht 175.3 cm; Wt 109.0 kg
--- NOTE | ~2018-08-07 | CN ---
PATIENT NAME:SOTO MCCLOUD MEDICAL RECORD: [id number] : 47 LOCATION:D.M2 D.2109 ADMIT DATE: 08/07/18 ACCOUNT: [id number] CONSULTING PHYSICIAN: MARCELLUS MORLEY MD REFERRING PHYSICIAN: MANOJ PAREKH MD DATE OF CONSULTATION: 08/08/2018 CONSULT REQUESTING PHYSICIAN: Manoj Parekh MD REASON FOR CONSULTATION: Acute dyspnea. HISTORY OF PRESENT ILLNESS: Ms. Mccloud is a 72-year-old female who has history of secondhand smoking exposure and stage III kidney failure. The patient came into the hospital with orthopnea and PND. She was also coughing. She was also hearing herself wheezing. The cough was not productive with much sputum. Denies any fever and chills. REVIEW OF THE SYSTEMS: Mainly in the history of present illness. PAST MEDICAL HISTORY: 1. Stage III chronic kidney disease. 2. Hypertension. 3. History of pneumonia. 4. History of multiple myeloma. 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 6. Anxiety and depression. PAST SURGICAL HISTORY: 1. Cholecystectomy. 2. Herniorrhaphy. 3. T&A. 4. Bladder sling repair surgery. 5. Fistula placement for hemodialysis. ALLERGIES: SHE IS ALLERGIC TO CIPRO, LOPERAMIDE, MORPHINE, AND SULFA. MEDICATIONS: [employer] was reviewed. PERSONAL AND SOCIAL HISTORY: The patient has not smoked, but she has a heavy secondhand exposure to smoking. She is nondrinker. FAMILY HISTORY: Significant for cardiovascular disease. PHYSICAL EXAMINATION: GENERAL: Now, the patient is lying comfortably. She is not in acute distress. VITAL SIGNS: Blood pressure 137/73, pulse rate 104, respiration is 18, temperature is 98.6, and SpO2 is 94% on room air. HEENT: Conjunctivae are pink. Sclerae are not icteric. NECK: Neck is supple. No JVD. CHEST: There are bilateral crackles and wheezes on forceful expiration. HEART: Rhythm regular. Normal sound. No murmur. ABDOMEN: Abdomen is soft. Bowel sounds present. No hepatosplenomegaly. RECTAL: Deferred. LYMPH NODE: There is enlarged parotid gland on the left side of the neck. CENTRAL NERVOUS SYSTEM: The patient is awake and alert. There is no obvious CONSULT REPORT [id number] SUIT,NONDADEE cranial nerve abnormality. The gait was not tested. EXTREMITIES: There is no cyanosis and no clubbing. There are 2+ pedal edema. LABORATORIES: CBC; WBC is 7.6, hemoglobin 10.3, hematocrit 32, and platelet count is 179. Chemistry; sodium 142, potassium 3.3, BUN is 44, creatinine is 3. The troponin is less than 0.017. The proBNP is 19,538. The TSH is 4.42. The V/Q scan is low probability. DIAGNOSTIC DATA: Chest radiograph; there is infiltrate in left lower lobe. The D-dimer is positive. IMPRESSION: 1. Dyspnea, which is multifactorial, most likely secondary to congestive heart failure; fluid overload; and possible COPD exacerbation with pneumonia, left lower lobe. 2. Pneumonia, left lower lobe, most likely community-acquired pneumonia. 3. Congestive heart failure, possible chronic diastolic dysfunction. 4. Left pleural effusion. 5. COPD exacerbation with history of secondhand smoking exposure. 6. Acute complex left parotid tumor. 7. Chronic kidney disease stage IV. 8. Fluid overload. RECOMMENDATIONS: 1. Continue Lasix. 2. Albuterol/ipratropium nebulizer. 3. Brovana and budesonide nebulizer. 4. Tessalon Perles 200 mg per oral t.i.d. 5. Mucinex DM two tablets per oral b.i.d. 6. I will check ultrasound of the lower extremities to rule out DVT. 7. Followup labs and chest radiograph. Dr. Parekh, thank you for involving me in the care of Ms. Mccloud. TRANSINT:[id number] Voice Confirmation ID: [id number] DOCUMENT ID: [id number] MARCELLUS MORLEY MD CC: [id number] DICTATION DATE: 08/08/18 1643 DENTAL LAB TECHNICIAN: 08/08/18 1706 ADM IN [facility] [address] [place] [address]
--- NOTE | ~2018-08-07 | EC ---
PATIENT:SOTO BATES DATE OF SERVICE: 08/07/18 SEX: F MEDICAL RECORD: [id number] DATE OF : 47 LOCATION:D.M2 D.210 AGE OF PATIENT: 72 ADMISSION DATE: 08/07/18 REFERRING PHYSICIAN: INTERPRETING PHYSICIAN: PORTER JONES MD ECHOCARDIOGRAM REPORT ECHO CHARGES 4 ECHO COMPLETE Date: 08/08/18 CLINICAL DIAGNOSIS: DYSPENA ECHOCARDIOGRAPHIC MEASUREMENTS (adult normal given) AC root (d.<3.7cm) 2.3 cm LV Septum d (<1.2 cm> 1.2 cm Valve Excursion 1.5 cm LV Septum (systole) 1.4 cm Left Atria (s.<4.0cm> 4.3 cm LVPW d(<1.2cm) 1.1 cm RV (d.<2.3cm) 2.4 cm LVPW (sytole) 1.5 cm LV diastole(<5.6CM) 5.8 cm MV E-F(>70mm/sec) cm LV systole 4.6 cm LVOT Diameter 2.0 cm MV exc.(>10mm) cm Est.ejection fraction (50-75%) % DOPPLER: LVIT cm/sec A 42 cm/sec E 102 cm/sec LA cm/sec RVSP 17.4 mmHg LVOT 132 cm/sec AOP1/2T m/s Asc. Ao 155 cm/sec RVOT 70 cm/sec RA cm/sec PA 88 cm/sec AV Gradient Peak 9.6 mmHg AV Mean 6.4 mmHg AV Area 2.8 cm MV Gradient Peak 6.6 mmHg MV Mean 2.4 mmHg MV Area cm COMMENTS: Fleet Operations Manager: Urbano MCKENZIE Digital Printer Operator: 3 Dr. Palomino TAPE# PACS Pericardial Effusion Y DATE OF SERVICE: 08/09/2018 Adequate 2D echo, color flow, spectral Doppler and M-mode LV internal are dimensions are normal. Wall motion is normal. Normal systolic function, estimated EF estimated at greater than 55%. Aortic valve is tricuspid. No stenosis on doppler interrogation. Left atrium is minimally dilated at 4.3 cm. Mitral valve shows no prolapse. Mild MR. Right sided chamber is normal. Mild TR. ECHOCARDIOGRAM REPORT [id number] SOTO BATES TRANSINT:[id number] Voice Confirmation ID: [id number] DOCUMENT ID: [id number] PORTER JONES MD at 0843 CC: [id number] DICTATION DATE: 08/09/18 1054 LUBRICATION TECHNICIAN: 08/09/18 1207 DIS IN 08/09/18 [facility] [address] [place] [address]
[2018-08-07 10:34] LABS: BASOPHILS 0.8 % (0-2); EOSINOPHILS 4.6 % (0-7); HEMATOCRIT 33.1 % (36.0-48.0); HEMOGLOBIN 10.4 g/dL (12-16); IMMATURE GRANULOCYTES 0.3 % (0-5); MCHC 31.4 g/dL (31.0-37.0); MCV 89.2 fL (80.0-100.0); MONOCYTES 5.4 % (2-11); NEUTROPHILS 75.9 % (40-80); PLATELET COUNT 194 10x3/uL (130-400); RBC 3.71 10x6/uL (4.00-5.40); RDW 16.2 % (11.5-14.5); WBC 7.6 10x3/uL (4.8-10.8)
[2018-08-07 10:50] LABS: ALBUMIN 3.1 g/dL (3.4-5.0); ALKALINE PHOSPHATASE 64 U/L (46-116); ALT (SGPT) 25 U/L (10-68); BILIRUBIN - TOTAL 0.28 mg/dL (0.2-1.3); CALC OSMOLALITY 296 mosm/kg (275-300); CARBON DIOXIDE 26.4 mmol/L (21.0-32.0); CHLORIDE - SERUM 108 mmol/L (98-107); GLUCOSE 146 mg/dL (74-106); POTASSIUM - SERUM 3.3 mmol/L (3.5-5.1); PROTEIN - SERUM 6.9 g/dL (6.4-8.2); SODIUM 142 mmol/L (136-145); UREA NITROGEN 44 mg/dL (7-18); eGFR NON AFRICAN AMERICAN 16 mL/min (90-120)
[2018-08-07 11:05] LABS: CREATINE KINASE 127 UL (21-215); PRO BNP 19538 pg/mL (0-125); THYROID STIMULATING HORMONE 4.42 uIU/mL (0.36-3.74); TROPONIN-I < 0.017 ng/mL (0.000-0.060)
[2018-08-07 13:17] VITALS: BP 141/96
[2018-08-07] MEDS ORDERED: LASIX40 MG PO (14:27)
[2018-08-07] MEDS ORDERED: ROCALTROL0.25 MCG PO (14:29)
[2018-08-07] MEDS ORDERED: ZETIA10 MG PO (14:30)
[2018-08-07] MEDS ORDERED: K-DUR20 MEQ PO (14:31)
[2018-08-07] MEDS ORDERED: FOLATE0.4 MG PO (14:32)
[2018-08-07] MEDS ORDERED: OS-CAL500 MG PO (14:33)
[2018-08-07 14:34] VITALS: BP 140/71; BMI 33.3
[2018-08-07 20:00] VITALS: BP 132/75
[2018-08-08 04:00] VITALS: BP 140/82
[2018-08-08 05:43] LABS: HEMOGLOBIN 10.3 g/dL (12-16); LYMPHOCYTES 13.4 % (15-50); MCHC 32.2 g/dL (31.0-37.0); MCV 90.1 fL (80.0-100.0); MEAN PLATELET VOLUME 10.4 fL (7.4-10.4); NEUTROPHILS 75.6 % (40-80); PLATELET COUNT 179 10x3/uL (130-400); RBC 3.55 10x6/uL (4.00-5.40); WBC 7.6 10x3/uL (4.8-10.8)
[2018-08-08 05:56] LABS: ALBUMIN 2.9 g/dL (3.4-5.0); ALKALINE PHOSPHATASE 71 U/L (46-116); BILIRUBIN - TOTAL 0.15 mg/dL (0.2-1.3); CALC OSMOLALITY 298 mosm/kg (275-300); CALCIUM 8.4 mg/dL (8.5-10.1); CHLORIDE - SERUM 108 mmol/L (98-107); CKMB 2.3 U/L (0.0-3.6); CREATINE KINASE 120 UL (21-215); CREATININE - SERUM 3.3 mg/dL (0.6-1.3); GLUCOSE 187 mg/dL (74-106); POTASSIUM - SERUM 3.7 mmol/L (3.5-5.1); PRO BNP 18129 pg/mL (0-125); PROTEIN - SERUM 6.7 g/dL (6.4-8.2); SODIUM 141 mmol/L (136-145); TROPONIN-I < 0.017 ng/mL (0.000-0.060); UREA NITROGEN 49 mg/dL (7-18); eGFR NON AFRICAN AMERICAN 15 mL/min (90-120)
[2018-08-08 06:06] LABS: ALT (SGPT) 37 U/L (10-68)
[2018-08-08 09:30] VITALS: BP 149/78
[2018-08-08 12:13] VITALS: Ht 175.3 cm; Wt 109.0 kg
[2018-08-08 12:56] VITALS: BP 139/89
[2018-08-08 16:35] VITALS: BP 137/73
[2018-08-08 20:30] VITALS: BP 153/81
[2018-08-09 04:00] VITALS: BP 144/72
[2018-08-09 06:26] LABS: BASOPHILS 0.7 % (0-2); EOSINOPHILS 5.3 % (0-7); HEMATOCRIT 31.2 % (36.0-48.0); HEMOGLOBIN 9.6 g/dL (12-16); IMMATURE GRANULOCYTES 0.2 % (0-5); LYMPHOCYTES 15.3 % (15-50); MCH 27.9 pg (26.0-34.0); MCHC 30.8 g/dL (31.0-37.0); MCV 90.7 fL (80.0-100.0); MEAN PLATELET VOLUME 10.3 fL (7.4-10.4); MONOCYTES 7.3 % (2-11); NEUTROPHILS 71.2 % (40-80); PLATELET COUNT 182 10x3/uL (130-400); RBC 3.44 10x6/uL (4.00-5.40); RDW 16.5 % (11.5-14.5); WBC 9.1 10x3/uL (4.8-10.8)
[2018-08-09 06:52] LABS: ALBUMIN 2.7 g/dL (3.4-5.0); ANION GAP 13.4 mmol/L (8-16); BILIRUBIN - TOTAL 0.24 mg/dL (0.2-1.3); CALCIUM 7.9 mg/dL (8.5-10.1); CARBON DIOXIDE 24.1 mmol/L (21.0-32.0); POTASSIUM - SERUM 3.5 mmol/L (3.5-5.1); PROTEIN - SERUM 6.2 g/dL (6.4-8.2)
[2018-08-09 07:45] VITALS: BP 146/83
[2018-08-09 10:41] VITALS: BP 148/85
[2018-08-09] MEDS ORDERED: FLORAJEN3 CAPS460 MG PO (12:46)
[2018-08-09] MEDS ORDERED: BENZONATATE200 MG PO (12:46)
[2018-08-09] MEDS ORDERED: K-DUR20 MEQ PO (12:46)
[2018-08-09] MEDS ORDERED: MUCINEX DM ER1 EAC1 PO (12:46)
[2018-08-09] MEDS ORDERED: LASIX40 MG PO (12:46)
[2018-08-09] MEDS ORDERED: ZITHROMAX500 MG PO (12:46)
[2018-08-09] MEDS ORDERED: OMNICEF300 MG PO (12:47)
[2018-08-09] MEDS ORDERED: VENTOLIN HFA18 GM INH (12:47)
[2018-08-09] MEDS ORDERED: HYDROCODON-ACE1 EAC7 PO (13:10)
[2018-08-09 15:09] VITALS: BP 145/83
== END 2018-08-09 15:39 | disposition home or self-care (01) | DRG 291 ==
LOC: D.ER 09:57 → D.M2 13:01
PROVIDERS: Family Medicine
DX: I13.0 Hypertensive heart and chronic kidney disease with heart failure and stage 1 through stage 4 chronic kidney disease, or unspecified chronic kidney disease (principal); J18.9 Pneumonia, unspecified organism; N17.9 Acute kidney failure, unspecified; E11.22 Type 2 diabetes mellitus with diabetic chronic kidney disease; N18.3 Chronic kidney disease, stage 3 (moderate); I50.9 Heart failure, unspecified; E11.65 Type 2 diabetes mellitus with hyperglycemia; Z85.79 Personal history of other malignant neoplasms of lymphoid, hematopoietic and related tissues

== ENCOUNTER 2019-01-15 12:58 | Inpatient (IN) | payer MEDICARE, OTHER ==
[~2019-01-15] VITALS: Ht 175.3 cm; Wt 100.9 kg
[~2019-01-15 12:58] MED LIST changes: +BENZONATATE200 MG PO; +FLORAJEN3 CAPS460 MG PO; +FOLATE0.4 MG PO; +HYDROCODON-ACE1 EAC7 PO; +K-DUR20 MEQ PO; +MUCINEX DM ER1 EAC1 PO; +OMNICEF300 MG PO; +OS-CAL500 MG PO; +ROCALTROL0.25 MCG PO; +VENTOLIN HFA18 GM INH; +ZETIA10 MG PO; +ZITHROMAX500 MG PO
[2019-01-15] MEDS ORDERED: ULTRAM50 MG PO (13:20)
[2019-01-15 14:14] LABS: ALBUMIN 2.9 g/dL (3.4-5.0); ALKALINE PHOSPHATASE 79 U/L (46-116); ALT (SGPT) 36 U/L (10-68); BILIRUBIN - TOTAL 0.35 mg/dL (0.2-1.3); CALC OSMOLALITY 294 mosm/kg (275-300); CALCIUM 8.6 mg/dL (8.5-10.1); CARBON DIOXIDE 23.9 mmol/L (21.0-32.0); CHLORIDE - SERUM 106 mmol/L (98-107); CREATININE - SERUM 2.9 mg/dL (0.6-1.3); GLUCOSE 153 mg/dL (74-106); POTASSIUM - SERUM 3.2 mmol/L (3.5-5.1); PROTEIN - SERUM 7.1 g/dL (6.4-8.2); SODIUM 140 mmol/L (136-145); UREA NITROGEN 48 mg/dL (7-18); eGFR NON AFRICAN AMERICAN 17 mL/min (90-120)
[2019-01-15 14:21] VITALS: BP 144/83
[2019-01-15 14:25] LABS: CKMB 1.6 U/L (0.0-3.6); CREATINE KINASE 154 UL (21-215); EOSINOPHILS 1.9 % (0-7); HEMATOCRIT 29.7 % (36.0-48.0); HEMOGLOBIN 9.9 g/dL (12-16); IMMATURE GRANULOCYTES 0.6 % (0-5); LYMPHOCYTES 14.9 % (15-50); MCH 30.2 pg (26.0-34.0); MCHC 33.3 g/dL (31.0-37.0); MCV 90.5 fL (80.0-100.0); MEAN PLATELET VOLUME 9.9 fL (7.4-10.4); MONOCYTES 5.8 % (2-11); NEUTROPHILS 75.8 % (40-80); PLATELET COUNT 181 10x3/uL (130-400); PRO BNP 29531 pg/mL (0-125); RBC 3.28 10x6/uL (4.00-5.40); TROPONIN-I 0.025 ng/mL (0.000-0.060); WBC 8.2 10x3/uL (4.8-10.8)
[2019-01-15 18:08] VITALS: BP 144/78; BMI 32.5
[2019-01-15 20:00] VITALS: BP 136/74
[2019-01-16 04:00] VITALS: BP 144/77
[2019-01-16 07:01] LABS: EOSINOPHILS 2.9 % (0-7); HEMATOCRIT 28.4 % (36.0-48.0); HEMOGLOBIN 9.4 g/dL (12-16); IMMATURE GRANULOCYTES 0.3 % (0-5); LYMPHOCYTES 14.3 % (15-50); MCH 30.1 pg (26.0-34.0); MCHC 33.1 g/dL (31.0-37.0); MEAN PLATELET VOLUME 10.3 fL (7.4-10.4); MONOCYTES 8.9 % (2-11); NEUTROPHILS 72.6 % (40-80); PLATELET COUNT 178 10x3/uL (130-400); RBC 3.12 10x6/uL (4.00-5.40); RDW 14.1 % (11.5-14.5); WBC 9.5 10x3/uL (4.8-10.8)
[2019-01-16 07:24] LABS: ALBUMIN 2.7 g/dL (3.4-5.0); ANION GAP 16.1 mmol/L (8-16); BILIRUBIN - TOTAL 0.29 mg/dL (0.2-1.3); CALCIUM 8.2 mg/dL (8.5-10.1); CARBON DIOXIDE 22.8 mmol/L (21.0-32.0); CREATININE - SERUM 2.9 mg/dL (0.6-1.3); PROTEIN - SERUM 6.7 g/dL (6.4-8.2)
[2019-01-16 07:32] LABS: POTASSIUM - SERUM 2.9 mmol/L (3.5-5.1)
[2019-01-16 09:13] VITALS: BP 140/58
[2019-01-16 12:30] VITALS: BP 144/80
[2019-01-16 13:29] VITALS: BMI 31.4
[2019-01-16 14:04] LABS: % SATURATION 8 % (15-55); IRON 17 ug/dl (35-150); TOTAL IRON BIND CAPACITY 199 ug/dl (260-445); UNSAT IRON BIND CAPACITY 182 ug/dl (150-375)
[2019-01-16 17:39] VITALS: BP 132/72
[2019-01-16 20:00] VITALS: BP 119/68
[2019-01-17] VITALS (7 sets, daily range): BP systolic 117–158; BP diastolic 55–90
[2019-01-17 07:19] LABS: POTASSIUM - SERUM 4.3 mmol/L (3.5-5.1)
[2019-01-17 08:16] LABS: FOLATE (FOLIC ACID) - SERUM >20.0 ng/mL (>3.0)
[2019-01-17 11:28] LABS: ANION GAP 16.7 mmol/L (8-16); CALCIUM 7.9 mg/dL (8.5-10.1); CARBON DIOXIDE 22.6 mmol/L (21.0-32.0); CREATININE - SERUM 3.1 mg/dL (0.6-1.3)
[2019-01-17 11:33] LABS: BASOPHILS 1.4 % (0-2); HEMATOCRIT 28.9 % (36.0-48.0); HEMOGLOBIN 9.2 g/dL (12-16); IMMATURE GRANULOCYTES 0.5 % (0-5); LYMPHOCYTES 20.7 % (15-50); MCH 30.1 pg (26.0-34.0); MCHC 31.8 g/dL (31.0-37.0); MCV 94.4 fL (80.0-100.0); MEAN PLATELET VOLUME 10.4 fL (7.4-10.4); MONOCYTES 9.4 % (2-11); PLATELET COUNT 189 10x3/uL (130-400); RBC 3.06 10x6/uL (4.00-5.40); RDW 14.6 % (11.5-14.5); WBC 8.3 10x3/uL (4.8-10.8)
[2019-01-17 12:21] LABS: APPEARANCE CLEAR (CLEAR); BILIRUBIN NEGATIVE (NEGATIVE); COLOR YELLOW (YELLOW); GLUCOSE NEGATIVE (NEGATIVE); KETONE NEGATIVE (NEGATIVE); NITRITE NEGATIVE (NEGATIVE); PROTEIN 3+ mg/dL (NEGATIVE); UROBILINOGEN NORMAL (NORMAL)
[2019-01-17 12:22] LABS: BACTERIA FEW /hpf (NONE SEEN); EPITHELIAL CELLS 0-5 /hpf (0-5); RED CELLS - URINE 0-5 /hpf (0-5); WHITE CELLS - URINE 0-5 /hpf (0-5)
[2019-01-18 03:56] VITALS: BP 151/92
[2019-01-18 05:34] LABS: EOSINOPHILS 5.3 % (0-7); HEMATOCRIT 28.8 % (36.0-48.0); HEMOGLOBIN 9.2 g/dL (12-16); IMMATURE GRANULOCYTES 0.6 % (0-5); LYMPHOCYTES 19.7 % (15-50); MCHC 31.9 g/dL (31.0-37.0); MCV 93.8 fL (80.0-100.0); MEAN PLATELET VOLUME 10.3 fL (7.4-10.4); MONOCYTES 7.5 % (2-11); NEUTROPHILS 65.9 % (40-80); PLATELET COUNT 206 10x3/uL (130-400); RBC 3.07 10x6/uL (4.00-5.40); RDW 14.6 % (11.5-14.5); WBC 8.7 10x3/uL (4.8-10.8)
[2019-01-18 05:51] LABS: ANION GAP 17.4 mmol/L (8-16); CALCIUM 8.2 mg/dL (8.5-10.1); CARBON DIOXIDE 22.1 mmol/L (21.0-32.0); CREATININE - SERUM 3.2 mg/dL (0.6-1.3); POTASSIUM - SERUM 4.5 mmol/L (3.5-5.1)
[2019-01-18 08:28] VITALS: BP 144/80
[2019-01-18 12:10] VITALS: BP 126/77
[2019-01-18 16:55] VITALS: BP 131/73
[2019-01-18 19:50] VITALS: BP 133/82
[2019-01-18 23:52] VITALS: BP 137/72
[2019-01-19 03:45] VITALS: BP 131/62
[2019-01-19 06:43] LABS: CALCIUM 8.2 mg/dL (8.5-10.1); CARBON DIOXIDE 22.3 mmol/L (21.0-32.0); CREATININE - SERUM 2.9 mg/dL (0.6-1.3); POTASSIUM - SERUM 4.3 mmol/L (3.5-5.1)
[2019-01-19 06:46] LABS: BASOPHILS 0.6 % (0-2); EOSINOPHILS 6.2 % (0-7); HEMATOCRIT 29.2 % (36.0-48.0); HEMOGLOBIN 9.2 g/dL (12-16); IMMATURE GRANULOCYTES 0.6 % (0-5); LYMPHOCYTES 19.3 % (15-50); MCH 29.8 pg (26.0-34.0); MCHC 31.5 g/dL (31.0-37.0); MCV 94.5 fL (80.0-100.0); MEAN PLATELET VOLUME 10.2 fL (7.4-10.4); MONOCYTES 7.1 % (2-11); NEUTROPHILS 66.2 % (40-80); PLATELET COUNT 218 10x3/uL (130-400); RBC 3.09 10x6/uL (4.00-5.40); RDW 14.6 % (11.5-14.5); WBC 7.9 10x3/uL (4.8-10.8)
[2019-01-19 08:44] VITALS: BP 110/55
[2019-01-19 12:02] VITALS: BP 126/71
[2019-01-19 16:01] VITALS: BP 106/72
[2019-01-19 20:00] VITALS: BP 132/78
[2019-01-20] VITALS: BP 148/80
[2019-01-20 04:00] VITALS: BP 136/75
[2019-01-20 05:32] LABS: BASOPHILS 0.9 % (0-2); HEMATOCRIT 29.2 % (36.0-48.0); HEMOGLOBIN 9.4 g/dL (12-16); IMMATURE GRANULOCYTES 0.9 % (0-5); LYMPHOCYTES 17.7 % (15-50); MCH 30.2 pg (26.0-34.0); MCHC 32.2 g/dL (31.0-37.0); MCV 93.9 fL (80.0-100.0); MEAN PLATELET VOLUME 9.8 fL (7.4-10.4); MONOCYTES 6.8 % (2-11); NEUTROPHILS 69.7 % (40-80); PLATELET COUNT 219 10x3/uL (130-400); RBC 3.11 10x6/uL (4.00-5.40); RDW 14.4 % (11.5-14.5); WBC 8.7 10x3/uL (4.8-10.8)
[2019-01-20 06:01] LABS: ANION GAP 18.7 mmol/L (8-16); CALCIUM 8.3 mg/dL (8.5-10.1); CARBON DIOXIDE 20.3 mmol/L (21.0-32.0); CREATININE - SERUM 3.5 mg/dL (0.6-1.3)
[2019-01-20 09:47] VITALS: BP 134/78
[2019-01-20 20:00] VITALS: BP 147/82
[2019-01-21] VITALS: BP 137/69
[2019-01-21 04:00] VITALS: BP 147/80
[2019-01-21 06:26] LABS: BASOPHILS 0.7 % (0-2); EOSINOPHILS 3.4 % (0-7); HEMATOCRIT 28.3 % (36.0-48.0); HEMOGLOBIN 9.2 g/dL (12-16); IMMATURE GRANULOCYTES 0.6 % (0-5); LYMPHOCYTES 14.8 % (15-50); MCH 30.4 pg (26.0-34.0); MCHC 32.5 g/dL (31.0-37.0); MCV 93.4 fL (80.0-100.0); MEAN PLATELET VOLUME 9.8 fL (7.4-10.4); MONOCYTES 7.9 % (2-11); NEUTROPHILS 72.6 % (40-80); PLATELET COUNT 212 10x3/uL (130-400); RBC 3.03 10x6/uL (4.00-5.40); RDW 14.3 % (11.5-14.5); WBC 9.9 10x3/uL (4.8-10.8)
[2019-01-21 06:52] LABS: ANION GAP 16.6 mmol/L (8-16); CALCIUM 8.2 mg/dL (8.5-10.1); CARBON DIOXIDE 21.3 mmol/L (21.0-32.0); CREATININE - SERUM 3.1 mg/dL (0.6-1.3); PHOSPHOROUS 3.9 mg/dL (2.5-4.9); POTASSIUM - SERUM 3.9 mmol/L (3.5-5.1)
[2019-01-21 08:07] VITALS: BP 148/81
[2019-01-21 12:11] VITALS: BP 144/82
[2019-01-21 15:33] VITALS: BP 141/78
[2019-01-21 17:15] VITALS: Ht 175.3 cm; Wt 100.9 kg
[2019-01-21 20:00] VITALS: BP 135/66
[2019-01-22] VITALS: BP 122/49
[2019-01-22 04:00] VITALS: BP 126/50
[2019-01-22 06:36] LABS: CALCIUM 8.4 mg/dL (8.5-10.1); CARBON DIOXIDE 21.3 mmol/L (21.0-32.0); CREATININE - SERUM 3.2 mg/dL (0.6-1.3); POTASSIUM - SERUM 4.3 mmol/L (3.5-5.1)
[2019-01-22 06:45] LABS: BASOPHILS 0.6 % (0-2); EOSINOPHILS 4.1 % (0-7); HEMATOCRIT 27.9 % (36.0-48.0); HEMOGLOBIN 8.8 g/dL (12-16); IMMATURE GRANULOCYTES 0.8 % (0-5); LYMPHOCYTES 14.4 % (15-50); MCH 29.7 pg (26.0-34.0); MCHC 31.5 g/dL (31.0-37.0); MCV 94.3 fL (80.0-100.0); MEAN PLATELET VOLUME 10.1 fL (7.4-10.4); MONOCYTES 8.8 % (2-11); NEUTROPHILS 71.3 % (40-80); PLATELET COUNT 231 10x3/uL (130-400); RBC 2.96 10x6/uL (4.00-5.40); RDW 14.5 % (11.5-14.5); WBC 9.9 10x3/uL (4.8-10.8)
[2019-01-22 08:40] VITALS: BP 142/80
[2019-01-22] MEDS ORDERED: AMIODARONE HCL200 MG PO (12:42)
[2019-01-22] MEDS ORDERED: FLUTICASONE PRO16 GM NASAL (12:43)
--- NOTE | 2019-01-22 14:47 | MORECARE ---
CASE MANAGEMENT DISCHARGE SUMMARY PATIENT: SOTO BATES UNIT: [id number] ADM DATE: 01/15/19 AGE: 73 : 46 SEX: F ROOM/BED: D.5024 AUTHOR: MARYSOL SAL PHYSICIAN: REFERRING PHYSICIAN: FAIZAN RADER MD DATE OF SERVICE: 01/22/19 Discharge Plan Patient Name: SOTO BATES Facility: [facility]:[place] : 1945 Planned Disposition: Home with Home Health Anticipated Discharge Date: 01/22/19 Discharge Date: Expected LOS: 7 Initial Reviewer: [email or web address] Initial Review Date: 01/22/2019 Generated: 01/22/19 3:47 pm External Providers External Provider: [employer] Next Contact Date: 01/22/2019 Service Request Date: Service Type: Resolution: Reviewer: Comments: Coverage Notice Reviewer: LICHA Velarde Notice Issued Date-Time: 01/22/2019 9:55 Notice Type: IM Discharge Notice Notice Delivered To: Patient Relationship to Patient: Credit Collector Name: Delivery Method: HAND - Hand Delivered Kimberly Days: Prior Verbal Notification: Recipient Understood Notice: Yes Recipient Signature: Yes Med Rec Note Co-signed by Attending: Coverage Notice Comment: Reviewer: LICHA Velarde Notice Issued Date-Time: 01/22/2019 9:55 Notice Type: Patient Choice Letter Notice Delivered To: Patient Relationship to Patient: Credit Collector Name: Delivery Method: HAND - Hand Delivered Kimberly Days: Prior Verbal Notification: Recipient Understood Notice: Yes Recipient Signature: Yes Med Rec Note Co-signed by Attending: Coverage Notice Comment: [facility] Patient Name: SOTO BATES Page [phone] at 1447 All edits/amendments must be made on the electronic document DICTATION DATE: 01/22/19 1446 MARKETING MGR: KERMIT 01/22/19 1446 RPT#: [id number] DC DATE: STATUS: ADM IN [facility] [address] [place] [address] END OF REPORT
--- NOTE | 2019-01-22 14:57 | MORECARE ---
CASE MANAGEMENT DISCHARGE SUMMARY PATIENT: SOTO BATES UNIT: [id number] ADM DATE: 01/15/19 AGE: 73 : 46 SEX: F ROOM/BED: D.8390 AUTHOR: DORONDOC PHYSICIAN: REFERRING PHYSICIAN: FAIZAN RADER MD DATE OF SERVICE: 01/22/19 Discharge Plan Patient Name: SOTO BATES Facility: [facility]:[place] : 1945 Planned Disposition: Home with Home Health Anticipated Discharge Date: 01/22/19 Discharge Date: Expected LOS: 7 Initial Reviewer: [id number] Initial Review Date: 01/22/2019 Generated: 01/22/19 3:57 pm Comments DCP- Discharge Planning Updated by [email or web address]: Oscar Velarde on 01/22/19 1:[address] Patient Name: SOTO BATES Admission Status: ER Accout number: [id number] Admission Date: 01-15-2019 : 1945 Admission Diagnosis:ACUTE ON CHRONIC DIASTOLIC (CONGESTIVE) HEART FAILURE Attending: FAIZAN RADER Current LOS: 7 Anticipated DC Date: 01-22-2019 Planned Disposition: Home with Home Health Primary Insurance: MEDICARE A & B PLANNED EXTERNAL PROVIDER: [employer] [facility] Discharge Planning Comments: CM MET WITH PT AND GRANDDAUGHTER IN ROOM TO DISCUSS DISCHARGE PLANNING AND NEEDS. SOTO BATES provided verbal consent to discuss current and ongoing needs with/in the presence of: LIANA PERERA. PT REPORTS LIVING AT HOME INDEPENDENTLY WITH HER GRANDAUGHTER. GRANDDAUGHTER ASSISTS WITH HOUSEKEEPING AND COOKING. PT HAS BEDSIDE COMMODE, GLUCOMETER, NEBUILZER, ROLLING WALKER SHOWER CHAIR AND WHEELCHAIR FROM [employer] PT ALSO HAS BLOOD PRESSURE MONITOR. PT HAS NO OUTSIDE SERVICES ASSISTING IN THE HOME. CM DISCUSSED AVAILABILITY OF HOME HEALTH, REHAB SERVICES AND MEDICAL EQUIPMENT. PT WOULD LIKE HOME HEALTH SERVICES; CM PROVIDED CHOICE LISTING, PT SIGNED CHOICE FOR [facility]. PT'S GRANDDAUGHTER HERE TO TAKE HOME TODAY. IMPORTANT MESSAGE FROM MEDICARE PROVIDED AND EXPLAINED. CM RECEIVED HOME HEALTH ORDER, CALLED [facility], , SPOKE TO GEOVANY, REFERRAL PROVIDED, PT PLACED ON SCHEDULE FOR SATURDAY. CM FAXED REFERRAL AND DISCHARGE INFORMATION TO [facility] AT [phone]. GRINDING AND SPRAYING SUPERVISOR NURSE NOTIFIED. Blower And Compressor Assembler: Oscar Velarde DCPIA - Discharge Planning Initial Assessment Updated by LICHA: Oscar Velarde on 01/22/19 2:50 pm * Is the patient Alert and Oriented? Yes * How many steps to enter\exit or inside your home? * PCP DR. WILLAMS * Pharmacy [facility] * Preadmission Environment Home with Family * ADLs Independent * Equipment Bedside Commode Glucometer Nebulizer Rolling Walker Shower Chair Wheelchair * Other Equipment [employer], MEDICAL EQUIPMENT PROVIDER * List name and contact numbers for known caregivers / representatives who currently or will assist patient after discharge: HANNAH COKER, ANTONIETTA COMER, * Verbal permission to speak to the caregivers and representatives has been obtained from the patient. Yes * Community resources currently utilized None * Please name any agencies selected above. NONE * Additional services required to return to the preadmission environment? No * Can the patient safely return to the preadmission environment? Yes * Has this patient been hospitalized within the prior 30 days at any hospital? No Coverage Notice Reviewer: LICHA Velarde Notice Issued Date-Time: 01/22/2019 9:55 Notice Type: IM Discharge Notice Notice Delivered To: Patient Relationship to Patient: Bottle Filler Name: Delivery Method: HAND - Hand Delivered Kimberly Days: Prior Verbal Notification: Recipient Understood Notice: Yes Recipient Signature: Yes Med Rec Note Co-signed by Attending: Coverage Notice Comment: Reviewer: [email or web address] Iwona Velarde Notice Issued Date-Time: 01/22/2019 9:55 Notice Type: Patient Choice Letter Notice Delivered To: Patient Relationship to Patient: Bottle Filler Name: Delivery Method: HAND - Hand Delivered Kimberly Days: Prior Verbal Notification: Recipient Understood Notice: Yes Recipient Signature: Yes Med Rec Note Co-signed by Attending: Coverage Notice Comment: [facility] Last DP export: 01/22/19 1:47 p Patient Name: SUIT, NONDADEE Page [id number] at 7693 All edits/amendments must be made on the electronic document DICTATION DATE: 01/22/191456 APPLE CHECKER: KERMIT 01/22/191456 RPT#: [id number] DC DATE: STATUS: ADM IN [facility] [address] [place] [address] END OF REPORT
== END 2019-01-22 15:25 | disposition home health service (06) | DRG 291 ==
LOC: D.ER 12:58 → D.M2 15:57 → D.EDHOLD 15:57 → D.M2 16:06
PROVIDERS: Family Medicine; ADMIT Internal Medicine Nephrology
DX: I13.0 Hypertensive heart and chronic kidney disease with heart failure and stage 1 through stage 4 chronic kidney disease, or unspecified chronic kidney disease (principal); I50.33 Acute on chronic diastolic (congestive) heart failure; J18.9 Pneumonia, unspecified organism; J98.11 Atelectasis; I48.92 Unspecified atrial flutter; N18.3 Chronic kidney disease, stage 3 (moderate); E11.22 Type 2 diabetes mellitus with diabetic chronic kidney disease; D50.9 Iron deficiency anemia, unspecified; E87.6 Hypokalemia; E03.9 Hypothyroidism, unspecified

== ENCOUNTER → 2019-05-21 11:53 | Outpatient (CLI) | payer MEDICARE, OTHER ==
[2019-01-21 17:15] VITALS: BMI 31.4
[~2019-05-21 11:53] MED LIST changes: +AMIODARONE HCL200 MG PO; +FLUTICASONE PRO16 GM NASAL; +ULTRAM50 MG PO
== END | disposition home or self-care (01) ==
LOC: D.HCCARDIO 11:53
PROVIDERS: ATTEND Internal Medicine Cardiovascular Disease
DX: I42.9 Cardiomyopathy, unspecified (principal)

== ENCOUNTER 2019-06-01 10:00 | Inpatient (IN) | payer MEDICARE, OTHER ==
[~2019-06-01] VITALS: Ht 175.3 cm; Wt 89.7 kg
[2019-06-01 10:15] VITALS: BP 135/72
--- NOTE | 2019-06-01 10:25 | NUR ---
ASSISTED PT TO BSC TO OBTAIN URINE SAMPLE, PT HAD LOOSE BM, REPORTS SHE HAS BEEN HAVING THE SAME OVER THE LAST SEVERAL DAYS, WILL TRY AGAIN FOR SAMPLE SOON PATIENT CAN GO.
[2019-06-01 10:36] LABS: BASOPHILS 0.9 % (0-2); EOSINOPHILS 4.6 % (0-7); HEMATOCRIT 34.8 % (36.0-48.0); HEMOGLOBIN 11.7 g/dL (12-16); IMMATURE GRANULOCYTES 0.3 % (0-5); LYMPHOCYTES 12.1 % (15-50); MCH 30.2 pg (26.0-34.0); MCHC 33.6 g/dL (31.0-37.0); MCV 89.9 fL (80.0-100.0); MEAN PLATELET VOLUME 9.9 fL (7.4-10.4); NEUTROPHILS 76.1 % (40-80); PLATELET COUNT 222 10x3/uL (130-400); RBC 3.87 10x6/uL (4.00-5.40); RDW 14.9 % (11.5-14.5); WBC 7.8 10x3/uL (4.8-10.8)
[2019-06-01 11:02] LABS: ALBUMIN 3.1 g/dL (3.4-5.0); ANION GAP 16.1 mmol/L (8-16); BILIRUBIN - TOTAL 0.31 mg/dL (0.2-1.3); CALCIUM 8.8 mg/dL (8.5-10.1); CARBON DIOXIDE 25.6 mmol/L (21.0-32.0); CREATININE - SERUM 4.7 mg/dL (0.6-1.3); PROTEIN - SERUM 7.2 g/dL (6.4-8.2); THYROID STIMULATING HORMONE 8.8 uIU/mL (0.36-3.74)
[2019-06-01 11:06] LABS: POTASSIUM - SERUM 2.7 mmol/L (3.5-5.1)
[2019-06-01 11:31] VITALS: BP 116/71
[2019-06-01 12:32] VITALS: BP 142/74
[2019-06-01 12:34] LABS: APPEARANCE CLEAR (CLEAR); BILIRUBIN NEGATIVE (NEGATIVE); COLOR YELLOW (YELLOW); GLUCOSE NEGATIVE (NEGATIVE); KETONE NEGATIVE (NEGATIVE); NITRITE NEGATIVE (NEGATIVE); PROTEIN 2+ mg/dL (NEGATIVE); SPECIFIC GRAVITY 1.015 (1.005-1.020); UROBILINOGEN NORMAL (NORMAL)
[2019-06-01 12:35] LABS: BACTERIA MODERATE /hpf (NONE SEEN); EPITHELIAL CELLS 0-5 /hpf (0-5); MUCUS <1+ /lpf (NONE SEEN); RED CELLS - URINE RARE /hpf (0-5); WHITE CELLS - URINE OCC /hpf (0-5)
--- NOTE | 2019-06-01 16:30 | NUR ---
16 fr f/c placed per orders of Dr. Roberson. 10 ml saline placed in bulb per sterile technique. 600ml cloudy yellow urine returned.
[2019-06-01 17:05] VITALS: BP 152/88
[2019-06-01 17:42] VITALS: BP 152/88; BMI 30.6
[2019-06-01 19:06] LABS: ANION GAP 14.4 mmol/L (8-16); CALCIUM 8.6 mg/dL (8.5-10.1); CARBON DIOXIDE 26.9 mmol/L (21.0-32.0); CREATININE - SERUM 4.6 mg/dL (0.6-1.3); MAGNESIUM - SERUM 1.6 mg/dL (1.8-2.4); PHOSPHOROUS 5.2 mg/dL (2.5-4.9); POTASSIUM - SERUM 3.3 mmol/L (3.5-5.1)
[2019-06-01 20:00] VITALS: BP 139/74
--- NOTE | 2019-06-01 20:12 | NUR ---
RECIEVED BEDSIDE REPORT. EVENING ROUNDS COMPLETED. VSS, WITH ON TELE RANGING FROM NORMAL SINUS TO A-FLUTTER. NO S/S OF DISTRESS. PT STATES LEG CRAMPS IS A LITTLE BETTER THAN WHAT IS WAS WHEN SHE WAS ADMITTED. CAAL INTACT AND DRAINING. L. FISTULA. DENIES ANY FURTHER NEEDS AT THIS TIME. WILL CPOC. CL WITHIN REACH. BED IN LOW, SR UP X2 AND BED ALARM ON. NOTIFIED PT ON THE NEED TO USE CL WHENEVER SHE NEEDS ANYTHING.
--- NOTE | 2019-06-01 20:58 | NUR ---
MEDS GIVEN. PT REFUSED MUCINEX, STATES IT MAKES HER PUKE, BECAUSE IT BRINGS OUT ALL OF HER MUCUS. HUMALOG NOT GIVEN PER SLIDING SCALE. WILL CTM.
[2019-06-02] VITALS: BP 137/77
[2019-06-02 04:00] VITALS: BP 143/83
[2019-06-02 05:36] LABS: BASOPHILS 0.7 % (0-2); EOSINOPHILS 4.5 % (0-7); HEMATOCRIT 34.7 % (36.0-48.0); HEMOGLOBIN 11.6 g/dL (12-16); IMMATURE GRANULOCYTES 0.4 % (0-5); LYMPHOCYTES 12.9 % (15-50); MCH 30.1 pg (26.0-34.0); MCHC 33.4 g/dL (31.0-37.0); MCV 89.9 fL (80.0-100.0); MEAN PLATELET VOLUME 10.3 fL (7.4-10.4); MONOCYTES 7.1 % (2-11); NEUTROPHILS 74.4 % (40-80); PLATELET COUNT 226 10x3/uL (130-400); RBC 3.86 10x6/uL (4.00-5.40); RDW 15.1 % (11.5-14.5)
[2019-06-02 05:57] LABS: WBC 10.6 10x3/uL (4.8-10.8)
[2019-06-02 05:58] LABS: ANION GAP 13.6 mmol/L (8-16); CALCIUM 8.6 mg/dL (8.5-10.1); CARBON DIOXIDE 27.7 mmol/L (21.0-32.0); CREATININE - SERUM 4.6 mg/dL (0.6-1.3); MAGNESIUM - SERUM 1.6 mg/dL (1.8-2.4); PHOSPHOROUS 5.2 mg/dL (2.5-4.9); POTASSIUM - SERUM 3.3 mmol/L (3.5-5.1)
--- NOTE | 2019-06-02 07:02 | NUR ---
LAB CALLED FOR A CRITICAL LAB OF GLUCOSE 58. I ALREADY GAVE 2 CANS OF ORANGE JUICE PRIOR TO LAB RESULTS. REASSESED PT FSBS WITH GLUCOMETER IS 104. PT DENIES ANY NEED FOR COMFORT CARE. WILL CPOC.
--- NOTE | 2019-06-02 08:00 | NUR ---
PT RESTING IN BED, SHIFT ASSESSMENT PERFORMED. DENIES ANY NEEDS AT THIS TIME. WILL CONT TO FOLLOW POC
[2019-06-02 09:48] VITALS: Ht 175.3 cm; Wt 89.7 kg
[2019-06-02 12:14] LABS: APPEARANCE HAZY (CLEAR); BACTERIA FEW /hpf (NONE SEEN); BILIRUBIN NEGATIVE (NEGATIVE); COLOR YELLOW (YELLOW); EPITHELIAL CELLS OCC /hpf (0-5); GLUCOSE NEGATIVE (NEGATIVE); KETONE NEGATIVE (NEGATIVE); NITRITE NEGATIVE (NEGATIVE); PROTEIN 3+ mg/dL (NEGATIVE); SPECIFIC GRAVITY 1.015 (1.005-1.020); UROBILINOGEN NORMAL (NORMAL); WHITE CELLS - URINE OCC /hpf (0-5)
[2019-06-02 12:16] LABS: GRANULAR CAST RARE /lpf (NONE SEEN)
[2019-06-02 12:17] VITALS: BP 138/82
--- NOTE | 2019-06-02 12:20 | NUR ---
PT RESTING IN BED EATING LUNCH, FAMILY AT BEDSIDE. APPLIED SCD SLEEVES. DENIES ANY NEEDS AT THIS TIME, WILL CONT TO FOLLOW POC
--- NOTE | 2019-06-02 12:43 | MORECARE ---
CASE MANAGEMENT DISCHARGE SUMMARY PATIENT: SOTO BATES UNIT: [id number] ADM DATE: 06/01/19 AGE: 73 : 46 SEX: F ROOM/BED: D.2104 AUTHOR: MARYSOL SLA PHYSICIAN: REFERRING PHYSICIAN: SRINIVASA JAIME MD DATE OF SERVICE: 06/02/19 Discharge Plan Patient Name: SOTO BATES [facility] [facility] 1945 Planned Disposition: Home Anticipated Discharge Date: Discharge Date: Expected LOS: Initial Reviewer: [email or web address] Initial Review Date: 06/02/2019 Generated: 06/02/19 1:43 pm Patient Name: SOTO BATES Page [phone] at 1243 All edits/amendments must be made on the electronic document DICTATION DATE: 06/02/19 1243 RADIOLOGY INTERVENTIONAL PHYSICIAN: KERMIT 06/02/19 1243 RPT#: [id number] DC DATE: STATUS: ADM IN [facility] [address] [place] [address] END OF REPORT
--- NOTE | 2019-06-02 12:50 | MORECARE ---
CASE MANAGEMENT DISCHARGE SUMMARY PATIENT: SOTO BATES UNIT: [id number] ADM DATE: 06/01/19 AGE: 73 : 46 SEX: F ROOM/BED: D.2104 AUTHOR: MARYSOL SAL PHYSICIAN: REFERRING PHYSICIAN: SRINIVASA KOLB MD DATE OF SERVICE: 06/02/19 Discharge Plan Patient Name: PATRIC BATESADEJose Facility: [facility]:[place] : 1945 Planned Disposition: Home Anticipated Discharge Date: Discharge Date: Expected LOS: Initial Reviewer: [email or web address] Initial Review Date: 06/02/2019 Generated: 06/02/19 1:50 pm Comments DCP- Discharge Planning Updated by [id number]: Oscar Velarde on 06/02/19 11:[address] Patient Name: SOTO BATES Admission Status: ER Accout number: [id number] Admission Date: 06-01-2019 : 1945 Admission Diagnosis: Attending: Srinivasa Kolb Current LOS: 1 Anticipated DC Date: Planned Disposition: Home Primary Insurance: MEDICARE A & B Discharge Planning Comments: CM MET WITH PT IN ROOM TO DISCUSS DISCHARGE PLANNING AND NEEDS. PT REPORTS LIVING AT HOME INDEPENDENTLY WITH HER GRAND DAUGHTER. PT HAS BEDSIDE COMMODE, GLUCOMETER, NEBULIZER, ROLLING WALKER, SHOWER CHAIR AND WHEELCHAIR FROM [facility]. PT HAS OUTSIDE SERVICES ASSISTING IN THE HOME. CM DISCUSSED AVAILABILITY OF HOME HEALTH, REHAB SERVICES AND MEDICAL EQUIPMENT. PT DENIES DISCHARGE NEEDS, REPORTS HAVING OUTPATIENT PHYSICAL THERAPY ALREADY ARRANGED AT [facility]. PT'S GRAND DAUGHTER WILL PICK PT UP FOR DISCHARGE HOME. PT PLANS TO DISCHARGE HOME WHERE PT'S GRAND DAUGHTER LIVES ALSO. PT HAS NO ANTICIPATED DISCHARGE NEEDS AT THIS TIME, FAMILY TO TRANSPORT HOME AT DISCHARGE. CM TO FOLLOW AND ASSIST NEEDED. Cold Storage Supervisor: Oscar Velarde DCPIA - Discharge Planning Initial Assessment Updated by [id number]: Oscar Velarde on 06/02/19 12:46 pm * Is the patient Alert and Oriented? Yes * How many steps to enter\exit or inside your home? NONE * PCP DR. WILLAMS * Pharmacy [facility] * Preadmission Environment Home with Family * ADLs Independent * Equipment Back Brace Glucometer Nebulizer Rolling Walker Shower Chair Wheelchair * Other Equipment [employer], MEDICAL EQUIPMENT PROVIDER * List name and contact numbers for known caregivers / representatives who currently or will assist patient after discharge: ALFREDO HUA, GRANDDAUGHTER, * Verbal permission to speak to the caregivers and representatives has been obtained from the patient. Yes * Community resources currently utilized Other * Please name any agencies selected above. OUTPATIENT PHYSICAL THERAPY AT [facility] * Additional services required to return to the preadmission environment? No * Can the patient safely return to the preadmission environment? Yes * Has this patient been hospitalized within the prior 30 days at any hospital? No Last DP export: 06/02/19 11:43 am Patient Name: SOTO BATES Page [phone] at 1250 All edits/amendments must be made on the electronic document DICTATION DATE: 06/02/19 1250 SELF PAY REPRESENTATIVE: KERMIT 06/02/19 1250 RPT#: [id number] DC DATE: STATUS: ADM IN [facility] [address] [place] [address] END OF REPORT
[2019-06-02 18:21] VITALS: BP 120/72
--- NOTE | 2019-06-02 19:00 | NUR ---
PATIENT LAYING IN BED. NO COMPLAINTS AT THIS TIME. NO DISTRESS NOTED. FAMILY AT BEDSIDE.
[2019-06-02 20:00] VITALS: BP 158/66
[2019-06-03] VITALS: BP 165/82
--- NOTE | 2019-06-03 00:10 | NUR ---
PATIENT LAYING IN BED, EYES CLOSED, CHEST RISING AND FALLING. NO DISTRESS NOTED.
--- NOTE | 2019-06-03 01:50 | NUR ---
I have reviewed this patient and I concur with the Shift Assessment completed by the Licensed Practical Nurse today this shift.
[2019-06-03 04:00] VITALS: BP 162/78
[2019-06-03 05:27] VITALS: BP 135/78
--- NOTE | 2019-06-03 07:05 | NUR ---
REPORT GIVEN BY PATRICA AND CARE ASSUMMED. SHE IS ALERT OFFERS NO C/O RESP EVEN WITHOUT LABOR. F/C PATENT WITH MARGARITA URINE DRAINING. SCD'S ARE ON. CL IN REACH. PLAN OF CARE REVIEWED AND SAFETY PRECAUTIONS IN PLACE.
[2019-06-03 07:22] LABS: ANION GAP 16.3 mmol/L (8-16); CALCIUM 9.1 mg/dL (8.5-10.1); CARBON DIOXIDE 24.4 mmol/L (21.0-32.0); MAGNESIUM - SERUM 1.7 mg/dL (1.8-2.4); POTASSIUM - SERUM 3.7 mmol/L (3.5-5.1)
--- NOTE | 2019-06-03 08:55 | NUR ---
AM MEDS GIVEN WITHOUT DIFF. TAKING PO FLUIDS WELL.
[2019-06-03 09:40] VITALS: BP 159/82
[2019-06-03 13:18] VITALS: BP 146/69
--- NOTE | 2019-06-03 14:00 | NUR ---
C/O CAAL LEAKING SOME. SHE WAS GIVEN PERICARE. SOME URINE LEAKAGE REPORTED AFTER A HARD COUGHING SPELL. SHE CURRENTLY HAS URINE DRAINING IN TUBE BUT F/C TUBING AND LINE CHECKED FOR KINKS AND NONE FOUND.
[2019-06-03 18:52] VITALS: BP 152/79
--- NOTE | 2019-06-03 19:14 | NUR ---
PT IN BED. DENIES NEEDS AT THIS TIME.
[2019-06-04 00:30] VITALS: BP 172/89
[2019-06-04 04:00] VITALS: BP 150/84
[2019-06-04 06:12] LABS: ANION GAP 14.9 mmol/L (8-16); BASOPHILS 0.7 % (0-2); CALCIUM 8.9 mg/dL (8.5-10.1); CARBON DIOXIDE 24.5 mmol/L (21.0-32.0); CREATININE - SERUM 3.9 mg/dL (0.6-1.3); EOSINOPHILS 5.1 % (0-7); HEMATOCRIT 35.2 % (36.0-48.0); HEMOGLOBIN 11.6 g/dL (12-16); IMMATURE GRANULOCYTES 0.4 % (0-5); LYMPHOCYTES 12.6 % (15-50); MEAN PLATELET VOLUME 10.3 fL (7.4-10.4); MONOCYTES 6.5 % (2-11); NEUTROPHILS 74.7 % (40-80); PHOSPHOROUS 4.7 mg/dL (2.5-4.9); PLATELET COUNT 203 10x3/uL (130-400); POTASSIUM - SERUM 4.4 mmol/L (3.5-5.1); RBC 3.87 10x6/uL (4.00-5.40); RDW 15.2 % (11.5-14.5); URIC ACID 7.8 mg/dL (2.6-7.2); WBC 10.5 10x3/uL (4.8-10.8)
--- NOTE | 2019-06-04 07:05 | NUR ---
RECEIVED REPORT FROM NIGHTSHIFT AND CARE ASSUMMED. SHE IS ALERT ABLE TO VOICE NEEDS. RESP EVEN WITHOUT LABOR. RIGHT HAND SALINE LOCK INTACT. CL IN REACH
[2019-06-04 08:27] VITALS: BP 147/84
--- NOTE | 2019-06-04 10:00 | NUR ---
ALERT IN ROOM. GRAND DAUGHTER IN THE ROOM. CL IN REACH SHE GOT UP WITH THERAPY AND WENT AROUND THE BED BUT IS EXTREMELY WEAK, REQUIRES LOTS OF ASSIST AND NEEDS MORE REHAB/THERAPY.
[2019-06-04 11:51] VITALS: BP 132/80
[2019-06-04 15:55] VITALS: BP 130/86
--- NOTE | 2019-06-04 18:19 | NUR ---
ULTRAM GIVEN FOR C/O PAIN IN LEFT HIP. SHE WAS REPOSITIONED IN BED WITH NO CHANGE IN STAUS NOTED
--- NOTE | 2019-06-04 19:24 | NUR ---
PT IN BED. FAMILY AT BEDSIDE. PT DENIES NEEDS AT THIS TIME.
[2019-06-04 20:00] VITALS: BP 149/64
[2019-06-05] VITALS: BP 141/54
[2019-06-05 04:00] VITALS: BP 158/56
[2019-06-05 06:01] LABS: BASOPHILS 0.4 % (0-2); EOSINOPHILS 4.1 % (0-7); HEMATOCRIT 34.7 % (36.0-48.0); HEMOGLOBIN 11.3 g/dL (12-16); IMMATURE GRANULOCYTES 0.3 % (0-5); MCH 30.1 pg (26.0-34.0); MCHC 32.6 g/dL (31.0-37.0); MCV 92.5 fL (80.0-100.0); MEAN PLATELET VOLUME 10.5 fL (7.4-10.4); MONOCYTES 6.7 % (2-11); NEUTROPHILS 81.5 % (40-80); PLATELET COUNT 202 10x3/uL (130-400); RBC 3.75 10x6/uL (4.00-5.40); RDW 15.3 % (11.5-14.5)
[2019-06-05 06:10] LABS: WBC 13.2 10x3/uL (4.8-10.8)
[2019-06-05 06:36] LABS: ANION GAP 15.8 mmol/L (8-16); CALCIUM 9.1 mg/dL (8.5-10.1); CARBON DIOXIDE 24.3 mmol/L (21.0-32.0); PHOSPHOROUS 4.4 mg/dL (2.5-4.9)
[2019-06-05 06:37] LABS: MAGNESIUM - SERUM 2.2 mg/dL (1.8-2.4); POTASSIUM - SERUM 5.1 mmol/L (3.5-5.1)
--- NOTE | 2019-06-05 06:55 | NUR ---
RECEIVED REPORT FROM NIGHTSTNFT AND CARE ASSUMED. SHE IS ALERT. SALINE LOCK INTACT. OFFERS NO C/O AT THIS TIME. F/C PATENT WITH MARGARITA URINE DRAINING, IT IS PAVING PLANT OPERATOR IN COLOR THAN YESTERDAY. CL IN REACH, RESP EVEN WITHOUT LABOR
[2019-06-05 08:38] VITALS: BP 156/76
--- NOTE | 2019-06-05 08:45 | NUR ---
Nutrition follow-up: Diet: Low PO4 PO intake ~75% of meals +BM Wt: 198# RDN following
--- NOTE | 2019-06-05 10:15 | NUR ---
ALERT DENIES ANY NEEDS AT THIS TIME. F/C PATENT WITH MARGARITA URINE DRAINING. PO FLUIDS ENCOURAGED
[2019-06-05 11:30] VITALS: BP 144/79
--- NOTE | 2019-06-05 12:33 | MORECARE ---
CASE MANAGEMENT DISCHARGE SUMMARY PATIENT: SOTO BATES UNIT: [id number] ADM DATE: 06/01/19 AGE: 73 : 46 SEX: F ROOM/BED: D.2104 AUTHOR: MARYSOL SAL PHYSICIAN: REFERRING PHYSICIAN: SRINIVASA KOLB MD DATE OF SERVICE: 06/05/19 Discharge Plan Patient Name: SOTO BATES [facility] [facility] 1945 Planned Disposition: Inpatient Rehab Anticipated Discharge Date: 06/05/19 Discharge Date: Expected LOS: 4 Initial Reviewer: [email or web address] Initial Review Date: 06/02/2019 Generated: 06/05/19 1:33 pm Comments DCP- Discharge Planning Updated by [email or web address]: Oscar Velarde on 06/05/19 11:[address] Patient Name: SOTO BATES Encounter No: [id number] : 1945 Primary Insurance: MEDICARE A & B Anticipated DC Date: 06-05-2019 Planned Disposition: Inpatient Rehab External Planned Provider: [facility] INPATIENT REHAB DCP follow-up note: CM RECEIVED ORDER FOR INPATIENT REHAB PRESCREENING. CM MET WITH PT IN ROOM TO DISCUSS REHAB OPTIONS, PROVIDERS AND LOCATIONS. PT STATES SHE REALIZES SHE IS TOO WEAK TO GO HOME AND CONTINUE OUTPATIENT REHAB AND WANTS INPATIENT REHAB AT [facility]. IMPORTANT MESSAGE FROM MEDICARE PROVIDED AND EXPLAINED. CM WAITING ON INPATIENT REHAB PRESCREENING / ADMISSION DETERMINATION FROM [facility] INPATIENT REHAB. [place] DCP- Discharge Planning Updated by [id number]: Oscar Velarde on 06/02/19 11:[address] Patient Name: SOTO BATES Admission Status: ER Accout number: [id number] Admission Date: 06-01-2019 : 1945 Admission Diagnosis: Attending: Srinivasa Kolb Current LOS: 1 Anticipated DC Date: Planned Disposition: Home Primary Insurance: MEDICARE A & B Discharge Planning Comments: CM MET WITH PT IN ROOM TO DISCUSS DISCHARGE PLANNING AND NEEDS. PT REPORTS LIVING AT HOME INDEPENDENTLY WITH HER GRAND DAUGHTER. PT HAS BEDSIDE COMMODE, GLUCOMETER, NEBULIZER, ROLLING WALKER, SHOWER CHAIR AND WHEELCHAIR FROM [facility]. PT HAS OUTSIDE SERVICES ASSISTING IN THE HOME. CM DISCUSSED AVAILABILITY OF HOME HEALTH, REHAB SERVICES AND MEDICAL EQUIPMENT. PT DENIES DISCHARGE NEEDS, REPORTS HAVING OUTPATIENT PHYSICAL THERAPY ALREADY ARRANGED AT [facility]. PT'S GRAND DAUGHTER WILL PICK PT UP FOR DISCHARGE HOME. PT PLANS TO DISCHARGE HOME WHERE PT'S GRAND DAUGHTER LIVES ALSO. PT HAS NO ANTICIPATED DISCHARGE NEEDS AT THIS TIME, FAMILY TO TRANSPORT HOME AT DISCHARGE. CM TO FOLLOW AND ASSIST NEEDED. Child Protective Services Social Worker: Oscar Velarde DCPIA - Discharge Planning Initial Assessment Updated by LICHA: Oscar Velarde on 06/02/19 12:46 pm * Is the patient Alert and Oriented? Yes * How many steps to enter\exit or inside your home? NONE * PCP DR. WILLAMS * Pharmacy [facility] * Preadmission Environment Home with Family * ADLs Independent * Equipment Back Brace Glucometer Nebulizer Rolling Walker Shower Chair Wheelchair * Other Equipment [employer], MEDICAL EQUIPMENT PROVIDER * List name and contact numbers for known caregivers / representatives who currently or will assist patient after discharge: ALFREDO HUA, GRANDDAUGHTER, * Verbal permission to speak to the caregivers and representatives has been obtained from the patient. Yes * Community resources currently utilized Other * Please name any agencies selected above. OUTPATIENT PHYSICAL THERAPY AT [facility] * Additional services required to return to the preadmission environment? No * Can the patient safely return to the preadmission environment? Yes * Has this patient been hospitalized within the prior 30 days at any hospital? No Coverage Notice Reviewer: [id number] - Oscar Velarde Notice Issued Date-Time: 06/05/2019 9:35 Notice Type: IM Discharge Notice Notice Delivered To: Patient Relationship to Patient: Principal Software Engineer Name: Delivery Method: HAND - Hand Delivered Kimberly Days: Prior Verbal Notification: Recipient Understood Notice: Yes Recipient Signature: Yes Med Rec Note Co-signed by Attending: Coverage Notice Comment: Last DP export: 06/02/19 11:50 am Patient Name: SOTO BATES Page [id number] at 1233 All edits/amendments must be made on the electronic document DICTATION DATE: 06/05/19 1233 HEEL COVERER: KERMIT 06/05/19 1233 RPT#: [id number] DC DATE: STATUS: ADM IN [facility] [address] [place] [address] END OF REPORT
[2019-06-05 14:48] VITALS: BP 137/69
[2019-06-05 20:00] VITALS: BP 148/75
--- NOTE | 2019-06-05 20:21 | NUR ---
DAUGHTER AT BEDSIDE WITH PT.
[2019-06-06] VITALS: BP 148/64; BP 148/75
--- NOTE | 2019-06-06 01:48 | NUR ---
I have reviewed this patient and I concur with the Shift Assessment completed by the Licensed Practical Nurse today this shift.
--- NOTE | 2019-06-06 03:00 | NUR ---
REST QUIETLY IN BED. CALL LIGHT IN REACH.
[2019-06-06 03:42] LABS: BASOPHILS 0.5 % (0-2); EOSINOPHILS 5.5 % (0-7); HEMOGLOBIN 10.6 g/dL (12-16); IMMATURE GRANULOCYTES 0.4 % (0-5); LYMPHOCYTES 7.4 % (15-50); MCH 29.7 pg (26.0-34.0); MCHC 32.1 g/dL (31.0-37.0); MCV 92.4 fL (80.0-100.0); MEAN PLATELET VOLUME 10.4 fL (7.4-10.4); MONOCYTES 8.1 % (2-11); NEUTROPHILS 78.1 % (40-80); RBC 3.57 10x6/uL (4.00-5.40); RDW 14.9 % (11.5-14.5); WBC 11.1 10x3/uL (4.8-10.8)
[2019-06-06 03:58] LABS: ANION GAP 12.8 mmol/L (8-16); CALCIUM 8.8 mg/dL (8.5-10.1); CARBON DIOXIDE 23.8 mmol/L (21.0-32.0); CREATININE - SERUM 3.6 mg/dL (0.6-1.3); PHOSPHOROUS 4.4 mg/dL (2.5-4.9); POTASSIUM - SERUM 4.6 mmol/L (3.5-5.1)
[2019-06-06 03:59] LABS: PLATELET COUNT 158 10x3/uL (130-400)
[2019-06-06 04:00] VITALS: BP 163/78
--- NOTE | 2019-06-06 07:16 | NUR ---
PT AWAKE AND ORIENTED, NO COMPLAINTS/CONCERNS THIS AM TO REPORT. PT LYING IN BED, CL IN REACH, SRX2.
[2019-06-06 09:32] VITALS: BP 147/77
--- NOTE | 2019-06-06 10:41 | NUR ---
I have reviewed this patient and I concur with the Shift Assessment completed by the Licensed Practical Nurse today this shift.
[2019-06-06 11:00] VITALS: BP 143/67
[2019-06-06 15:00] VITALS: BP 130/70
--- NOTE | 2019-06-06 17:30 | NUR ---
PT AWAKE AND ORIENTED, NO COMPLAINTS TODAY. STATES SHE'S STILL NERVOUS AND SCARED TO GET UP ON HER OWN, SHE IS LOOKING FORWARD TO PHYCIAL THERAPY SO SHE CAN RETURN HOME. CL IN REACH, SRX2.
[2019-06-06 19:51] VITALS: BP 166/72
--- NOTE | 2019-06-06 21:26 | NUR ---
REPOSITION PT. HOB 35 DEGREE. BED LOW. CALL LIGHT IN REACH.
--- NOTE | 2019-06-07 00:57 | NUR ---
REST QUIETLY IN BED. CALL LIGHT IN REACH.
[2019-06-07 04:30] VITALS: BP 145/64
[2019-06-07 04:47] LABS: BASOPHILS 0.5 % (0-2); EOSINOPHILS 6.6 % (0-7); HEMATOCRIT 31.6 % (36.0-48.0); HEMOGLOBIN 10.2 g/dL (12-16); IMMATURE GRANULOCYTES 0.4 % (0-5); MCH 30.1 pg (26.0-34.0); MCHC 32.3 g/dL (31.0-37.0); MCV 93.2 fL (80.0-100.0); MEAN PLATELET VOLUME 10.4 fL (7.4-10.4); MONOCYTES 8.1 % (2-11); NEUTROPHILS 73.4 % (40-80); PLATELET COUNT 162 10x3/uL (130-400); RBC 3.39 10x6/uL (4.00-5.40)
[2019-06-07 05:06] LABS: ANION GAP 15.9 mmol/L (8-16); CALCIUM 8.8 mg/dL (8.5-10.1); CARBON DIOXIDE 22.7 mmol/L (21.0-32.0); CREATININE - SERUM 3.6 mg/dL (0.6-1.3); PHOSPHOROUS 4.1 mg/dL (2.5-4.9); POTASSIUM - SERUM 4.6 mmol/L (3.5-5.1)
--- NOTE | 2019-06-07 05:25 | NUR ---
I have reviewed this patient and I concur with the Shift Assessment completed by the Licensed Practical Nurse today this shift.
[2019-06-07 10:09] VITALS: BP 154/72
--- NOTE | 2019-06-07 10:34 | NUR ---
PT AWAKE AND ORIENTED SITTING IN RECLINER BESIDE BED. STATES SHE'S FEELING ALOT BETTER PHYSCIALLY, BUT STILL REPORTS SHE IS EXTREMELY ANXIOUS TO GET UP AND WALK AROUND. PT IS TERRIED OF FALLING, I TRIED TO CONVINCE HER TO GET HER CAAL TAKEN OUT (EXPLAINED RISK OF INFECTION), BUT SHE IS INSISTANT THAT THE CAAL IS NEEDED BECAUSE SHE WILL FALL IF SHE HAS TO GET UP TO USE THE RESTROOM. OTHERWISE, PT HAS NO COMPLAINTS/CONCERNS TO VOICE TODAY, SHE IS VERY CONTENT TO STAY IN THE HOSPITAL UNTIL THE REHAB FACILITY ADMITS HER.
--- NOTE | 2019-06-07 17:14 | NUR ---
I have reviewed this patient and I concur with the Shift Assessment completed by the Licensed Practical Nurse today this shift.
[2019-06-07 19:02] VITALS: BP 130/62
[2019-06-07 19:06] VITALS: BP 140/86
--- NOTE | 2019-06-07 19:10 | NUR ---
PATIENT LAYING IN BED. PATIENT HAS NO COMPLAINTS AT THIS TIME. NO DISTRESS NOTED.
[2019-06-07 20:00] VITALS: BP 154/74
[2019-06-08] VITALS: BP 153/78
--- NOTE | 2019-06-08 02:06 | NUR ---
PATIENT LAYING IN BED. EYES CLOSED, CHEST RISING AND FALLING. NO DISTRESS NOTED.
[2019-06-08 04:30] VITALS: BP 119/71
[2019-06-08 04:37] LABS: BASOPHILS 0.6 % (0-2); EOSINOPHILS 8.5 % (0-7); HEMATOCRIT 30.8 % (36.0-48.0); HEMOGLOBIN 9.8 g/dL (12-16); IMMATURE GRANULOCYTES 0.2 % (0-5); LYMPHOCYTES 10.3 % (15-50); MCHC 31.8 g/dL (31.0-37.0); MCV 94.2 fL (80.0-100.0); MEAN PLATELET VOLUME 10.4 fL (7.4-10.4); MONOCYTES 7.7 % (2-11); NEUTROPHILS 72.7 % (40-80); PLATELET COUNT 168 10x3/uL (130-400); RBC 3.27 10x6/uL (4.00-5.40); RDW 14.8 % (11.5-14.5); WBC 8.6 10x3/uL (4.8-10.8)
[2019-06-08 04:48] LABS: ANION GAP 13.1 mmol/L (8-16); CALCIUM 8.8 mg/dL (8.5-10.1); CARBON DIOXIDE 25.4 mmol/L (21.0-32.0); CREATININE - SERUM 3.4 mg/dL (0.6-1.3); PHOSPHOROUS 4.1 mg/dL (2.5-4.9); POTASSIUM - SERUM 4.5 mmol/L (3.5-5.1)
--- NOTE | 2019-06-08 05:33 | NUR ---
I have reviewed this patient and I concur with the Shift Assessment completed by the Licensed Practical Nurse today this shift.
--- NOTE | 2019-06-08 07:47 | NUR ---
PT AWAKE AND ORIENTEDX4, LYING IN BED GETTING HER VS TAKEN. GRAND DAUGHTER AT BEDSIDE. PT SEEMS IN GOOD SPIRITS TODAY, AGAIN DENIED HAVINING THE CAAL TAKEN OUT, STATES SHE'S STILL TO NERVOUS TO GET UP FREQUENTLY TO WALK. OTHERWISE PT HAS NO COMPLAINTS/CONCERNS/QUESTIONS AT THIS TIME, CL IN REACH, SRX2.
[2019-06-08 09:44] VITALS: BP 150/69
--- NOTE | 2019-06-08 12:07 | NUR ---
REMOVED CAAL PER NURSING PROTOCOL. FINAL OUTPUT 250
[2019-06-08 12:37] VITALS: BP 135/64
--- NOTE | 2019-06-08 14:03 | NUR ---
I have reviewed this patient and I concur with the Shift Assessment completed by the Licensed Practical Nurse today this shift.
[2019-06-08 18:52] VITALS: BP 147/76
--- NOTE | 2019-06-08 19:00 | NUR ---
PATIENT SITTING UP IN BED. PATIENT STATES SHE HAD A GREAT DAY AND IS PROUD OF HERSELF FOR WALKING MORE THEN SHE HAD BEEN. PATIENT HAS NO COMPLAINTS AT THIS TIME. NO DISTRESS NOTED.
[2019-06-08 20:00] VITALS: BP 133/69
--- NOTE | 2019-06-08 22:03 | NUR ---
PATIENT LAYING IN BED. EYES CLOSED, CHEST RISING AND FALLING. NO DISTRESS NOTED.
[2019-06-09] VITALS: BP 158/61
--- NOTE | 2019-06-09 01:49 | NUR ---
I have reviewed this patient and I concur with the Shift Assessment completed by the Licensed Practical Nurse today this shift.
[2019-06-09 04:30] VITALS: BP 152/62
--- NOTE | 2019-06-09 07:00 | NUR ---
RECEIVED REPORT. ASSUMED CARE OF PATIENT. RESTING IN BED WITH EYES OPEN. RESP EVEN AND UNLABORED. PATIENT STATES SHE FEELS BETTER, SHE IS NOT MOUTH BREATHING. NO DISTRESS. DENIES NEEDS AT THIS TIME.
[2019-06-09 07:59] VITALS: BP 148/75
--- NOTE | 2019-06-09 08:50 | NUR ---
Rehab Note- Acute INpatient Rehab prescreeen order received. The patient is a good inpatient acute rehab candidate. Will accept when medically stable and ready for discharge from the acute hospital. Will follow at this time. Thank you for this referral! Marisel Snow RN Clinical Liaison, [facility] Rehab
--- NOTE | 2019-06-09 09:15 | NUR ---
COMPLETED AMBULATING WITH PT. TOLERATED THERAPY WELL.
--- NOTE | 2019-06-09 11:39 | NUR ---
FSBS 205. 4 UNITS INSULIN ADMINISTERED PER SLIDING SCALE. NO DISTRESS. SITTING UP TO CHAIR AT BEDSIDE.
--- NOTE | 2019-06-09 12:28 | MORECARE ---
CASE MANAGEMENT DISCHARGE SUMMARY PATIENT: SOTO BATES UNIT: [id number] ADM DATE: 06/01/19 AGE: 73 : [birth year] SEX: F ROOM/BED: D.2104 AUTHOR: MARYSOL SAL PHYSICIAN: REFERRING PHYSICIAN: SRINIVASA KOLB MD DATE OF SERVICE: 06/09/19 Discharge Plan Patient Name: SOTO BATES Facility: [facility]:[place] : 1945 Planned Disposition: Inpatient Rehab Anticipated Discharge Date: 06/09/19 Discharge Date: Expected LOS: 8 Initial Reviewer: [id number] Initial Review Date: 06/02/2019 Generated: 06/09/19 1:28 pm Comments DCP- Discharge Planning Updated by [email or web address]: Oscar Velarde on 06/09/19 11:[address] Patient Name: SOTO BATES Encounter No: [id number] : 1945 Primary Insurance: MEDICARE A & B Anticipated DC Date: 06-09-2019 Planned Disposition: Inpatient Rehab External Planned Provider: [facility] INPATIENT REHAB DCP follow-up note: CM SPOKE TO [facility]RE[facility] OF INPATIENT REHAB, THEY PLAN TO ACCEPT PT TODAY FOR REHAB. ALAN CLARK NOTIFIED WHO WILL DISCHARGE PT TO REHAB TODAY. PT NOTIFIED, IN AGREEMENT WITH DISCHARGE TO INPATIENT REHAB. IMPORTANT MESSAGE FROM MEDICARE PROVIDED AND EXPLAINED. [facility] INPATIENT REHAB TO CONTACT MED 2 NURSE WITH ROOM NUMBER WHEN READY TO ACCEPT PT AND NURSE REPORT. [place] Diaz DCP- Discharge Planning Updated by [id number]: Oscar Velarde on 06/05/19 11:[address] Patient Name: SOTO BATES Encounter No: [id number] : 1945 Primary Insurance: MEDICARE A & B Anticipated DC Date: 06-05-2019 Planned Disposition: Inpatient Rehab External Planned Provider: [facility] INPATIENT REHAB DCP follow-up note: CM RECEIVED ORDER FOR INPATIENT REHAB PRESCREENING. CM MET WITH PT IN ROOM TO DISCUSS REHAB OPTIONS, PROVIDERS AND LOCATIONS. PT STATES SHE REALIZES SHE IS TOO WEAK TO GO HOME AND CONTINUE OUTPATIENT REHAB AND WANTS INPATIENT REHAB AT [facility]. IMPORTANT MESSAGE FROM MEDICARE PROVIDED AND EXPLAINED. CM WAITING ON INPATIENT REHAB PRESCREENING / ADMISSION DETERMINATION FROM [facility] INPATIENT REHAB. Oscar Velarde, CASE MANAGEMENT DCP- Discharge Planning Updated by [email or web address]: Oscar Velarde on 06/02/19 11:[address] Patient Name: NONDADEE D SUIT Admission Status: ER Accout number: [id number] Admission Date: 06-01-2019 : 1945 Admission Diagnosis: Attending: Srinivasa Kolb Current LOS: 1 Anticipated DC Date: Planned Disposition: Home Primary Insurance: MEDICARE A & B Discharge Planning Comments: CM MET WITH PT IN ROOM TO DISCUSS DISCHARGE PLANNING AND NEEDS. PT REPORTS LIVING AT HOME INDEPENDENTLY WITH HER GRAND DAUGHTER. PT HAS BEDSIDE COMMODE, GLUCOMETER, NEBULIZER, ROLLING WALKER, SHOWER CHAIR AND WHEELCHAIR FROM [employer]. PT HAS OUTSIDE SERVICES ASSISTING IN THE HOME. CM DISCUSSED AVAILABILITY OF HOME HEALTH, REHAB SERVICES AND MEDICAL EQUIPMENT. PT DENIES DISCHARGE NEEDS, REPORTS HAVING OUTPATIENT PHYSICAL THERAPY ALREADY ARRANGED AT [facility]. PT'S GRAND DAUGHTER WILL PICK PT UP FOR DISCHARGE HOME. PT PLANS TO DISCHARGE HOME WHERE PT'S GRAND DAUGHTER LIVES ALSO. PT HAS NO ANTICIPATED DISCHARGE NEEDS AT THIS TIME, FAMILY TO TRANSPORT HOME AT DISCHARGE. CM TO FOLLOW AND ASSIST NEEDED. Doper Operator: Oscar Velarde DCPIA - Discharge Planning Initial Assessment Updated by [id number]: Oscar Velarde on 06/02/19 12:46 pm * Is the patient Alert and Oriented? Yes * How many steps to enter\exit or inside your home? NONE * PCP DR. WILLAMS * Pharmacy [facility] * Preadmission Environment Home with Family * ADLs Independent * Equipment Back Brace Glucometer Nebulizer Rolling Walker Shower Chair Wheelchair * Other Equipment [employer], MEDICAL EQUIPMENT PROVIDER * List name and contact numbers for known caregivers / representatives who currently or will assist patient after discharge: ALFREDO HUA, GRANDDAUGHTER, * Verbal permission to speak to the caregivers and representatives has been obtained from the patient. Yes * Community resources currently utilized Other * Please name any agencies selected above. OUTPATIENT PHYSICAL THERAPY AT [facility] * Additional services required to return to the preadmission environment? No * Can the patient safely return to the preadmission environment? Yes * Has this patient been hospitalized within the prior 30 days at any hospital? No Coverage Notice Reviewer: [id number] Velarde Notice Issued Date-Time: 06/05/2019 9:35 Notice Type: IM Discharge Notice Notice Delivered To: Patient Relationship to Patient: Lawn Service Manager Name: Delivery Method: HAND - Hand Delivered Kimberly Days: Prior Verbal Notification: Recipient Understood Notice: Yes Recipient Signature: Yes Med Rec Note Co-signed by Attending: Coverage Notice Comment: Reviewer: [id number] Velarde Notice Issued Date-Time: 06/09/2019 9:20 Notice Type: IM Discharge Notice Notice Delivered To: Patient Relationship to Patient: Lawn Service Manager Name: Delivery Method: HAND - Hand Delivered Kimberly Days: Prior Verbal Notification: Recipient Understood Notice: Yes Recipient Signature: Yes Med Rec Note Co-signed by Attending: Coverage Notice Comment: Last DP export: 06/05/19 11:33 am Patient Name: PATRIC BATESADEE Page [phone] at 1228 All edits/amendments must be made on the electronic document DICTATION DATE: 06/09/19 1228 ADVERTISING SUPERVISOR: KERMIT 06/09/19 1228 RPT#: [id number] DC DATE: STATUS: ADM IN [place] [id number] [place] [address] END OF REPORT
[2019-06-09] MEDS ORDERED: OMNICEF300 MG PO (12:34)
[2019-06-09] MEDS ORDERED: FEXOFENADINE HC60 MG PO (12:34)
[2019-06-09] MEDS ORDERED: VENTOLIN HFA [SP] INH (12:34)
[2019-06-09] MEDS ORDERED: K-DUR20 MEQ PO (12:35)
[2019-06-09] MEDS ORDERED: NYSTATIN1 PWD TOPICAL (12:36)
[2019-06-09] MEDS ORDERED: GLUCOTROL XL 5 M5 MG PO (12:36)
[2019-06-09] MEDS ORDERED: SYNTHROID112 MCG PO (12:36)
[2019-06-09 15:57] VITALS: BP 155/55
--- NOTE | 2019-06-09 16:37 | NUR ---
CALLED REHAB AND GAVE REPORT TO FLORINDA.
--- NOTE | 2019-06-09 16:49 | NUR ---
FSBS 131. NO INSULIN PER SLIDING SCALE.
--- NOTE | 2019-06-09 18:09 | NUR ---
DISCHARGE INSTRUCTIONS PROVIDED TO PATIENT. PATIENT GOING TO REHAB, ROOM 1115.
--- NOTE | 2019-06-09 18:23 | NUR ---
PATIENT LEFT UNIT VIA WHEELCHAIR AND DISCHARGED TO INPATIENT REHAB. PATIENT LEFT UNIT WITH ALL PERSONAL BELONGINGS. PATIENT IN NO ACUTE DISTRESS.
--- NOTE | 2019-06-10 07:59 | MORECARE ---
CASE MANAGEMENT DISCHARGE SUMMARY PATIENT: SOTO BATES UNIT: [id number] ADM DATE: 06/01/19 AGE: 73 : [birth year] SEX: F ROOM/BED: D.2104 AUTHOR: MARYSOL SAL PHYSICIAN: REFERRING PHYSICIAN: SRINIVASA KOLB MD DATE OF SERVICE: 06/10/19 Discharge Plan Patient Name: SOTO BATES Facility: [facility]:[place] : 1945 Planned Disposition: Inpatient Rehab Anticipated Discharge Date: 06/09/19 Discharge Date: 06/09/2019 Expected LOS: 8 Initial Reviewer: [id number] Initial Review Date: 06/02/2019 Generated: 06/10/19 8:59 am Comments DCP- Discharge Planning Updated by [id number]: Oscar Velarde on 06/09/19 11:[address] Patient Name: SOTO BATES Encounter No: [id number] : 1945 Primary Insurance: MEDICARE A & B Anticipated DC Date: 06-09-2019 Planned Disposition: Inpatient Rehab External Planned Provider: [facility] INPATIENT REHAB DCP follow-up note: CM SPOKE TO ANDREY OF INPATIENT REHAB, THEY PLAN TO ACCEPT PT TODAY FOR REHAB. ALAN CLARK NOTIFIED WHO WILL DISCHARGE PT TO REHAB TODAY. PT NOTIFIED, IN AGREEMENT WITH DISCHARGE TO INPATIENT REHAB. IMPORTANT MESSAGE FROM MEDICARE PROVIDED AND EXPLAINED. [facility] INPATIENT REHAB TO CONTACT MED 2 NURSE WITH ROOM NUMBER WHEN READY TO ACCEPT PT AND NURSE REPORT. Oscar Velarde, CASE MANAGEMENT DCP- Discharge Planning Updated by [id number]: Oscar Velarde on 06/05/19 11:[address] Patient Name: SOTO BATES Encounter No: [id number] : 1945 Primary Insurance: MEDICARE A & B Anticipated DC Date: 06-05-2019 Planned Disposition: Inpatient Rehab External Planned Provider: [facility] INPATIENT REHAB DCP follow-up note: CM RECEIVED ORDER FOR INPATIENT REHAB PRESCREENING. CM MET WITH PT IN ROOM TO DISCUSS REHAB OPTIONS, PROVIDERS AND LOCATIONS. PT STATES SHE REALIZES SHE IS TOO WEAK TO GO HOME AND CONTINUE OUTPATIENT REHAB AND WANTS INPATIENT REHAB AT [facility]. IMPORTANT MESSAGE FROM MEDICARE PROVIDED AND EXPLAINED. CM WAITING ON INPATIENT REHAB PRESCREENING / ADMISSION DETERMINATION FROM [facility] INPATIENT REHAB. Oscar Velarde, CASE MANAGEMENT DCP- Discharge Planning Updated by [id number]: Oscar Velarde on 06/02/19 11:[address] Patient Name: NONDADEE D SUIT Admission Status: ER Accout number: [id number] Admission Date: 06-01-2019 : 1945 Admission Diagnosis: Attending: Srinivasa Kolb Current LOS: 1 Anticipated DC Date: Planned Disposition: Home Primary Insurance: MEDICARE A & B Discharge Planning Comments: CM MET WITH PT IN ROOM TO DISCUSS DISCHARGE PLANNING AND NEEDS. PT REPORTS LIVING AT HOME INDEPENDENTLY WITH HER GRAND DAUGHTER. PT HAS BEDSIDE COMMODE, GLUCOMETER, NEBULIZER, ROLLING WALKER, SHOWER CHAIR AND WHEELCHAIR FROM [employer]. PT HAS OUTSIDE SERVICES ASSISTING IN THE HOME. CM DISCUSSED AVAILABILITY OF HOME HEALTH, REHAB SERVICES AND MEDICAL EQUIPMENT. PT DENIES DISCHARGE NEEDS, REPORTS HAVING OUTPATIENT PHYSICAL THERAPY ALREADY ARRANGED AT [facility]. PT'S GRAND DAUGHTER WILL PICK PT UP FOR DISCHARGE HOME. PT PLANS TO DISCHARGE HOME WHERE PT'S GRAND DAUGHTER LIVES ALSO. PT HAS NO ANTICIPATED DISCHARGE NEEDS AT THIS TIME, FAMILY TO TRANSPORT HOME AT DISCHARGE. CM TO FOLLOW AND ASSIST NEEDED. Theatrical Rigger: Oscar Velarde DCPIA - Discharge Planning Initial Assessment Updated by [email or web address]: Oscar Velarde on 06/02/19 12:46 pm * Is the patient Alert and Oriented? Yes * How many steps to enter\exit or inside your home? NONE * PCP DR. WILLAMS * Pharmacy [facility] * Preadmission Environment Home with Family * ADLs Independent * Equipment Back Brace Glucometer Nebulizer Rolling Walker Shower Chair Wheelchair * Other Equipment [employer], MEDICAL EQUIPMENT PROVIDER * List name and contact numbers for known caregivers / representatives who currently or will assist patient after discharge: ALFREDO HUA, GRANDDAUGHTER, * Verbal permission to speak to the caregivers and representatives has been obtained from the patient. Yes * Community resources currently utilized Other * Please name any agencies selected above. OUTPATIENT PHYSICAL THERAPY AT [facility] * Additional services required to return to the preadmission environment? No * Can the patient safely return to the preadmission environment? Yes * Has this patient been hospitalized within the prior 30 days at any hospital? No Coverage Notice Reviewer: LICHA Velarde Notice Issued Date-Time: 06/05/2019 9:35 Notice Type: IM Discharge Notice Notice Delivered To: Patient Relationship to Patient: Chancellor Name: Delivery Method: HAND - Hand Delivered Kimberly Days: Prior Verbal Notification: Recipient Understood Notice: Yes Recipient Signature: Yes Med Rec Note Co-signed by Attending: Coverage Notice Comment: Reviewer: LICHA Velarde Notice Issued Date-Time: 06/09/2019 9:20 Notice Type: IM Discharge Notice Notice Delivered To: Patient Relationship to Patient: Chancellor Name: Delivery Method: HAND - Hand Delivered Kimberly Days: Prior Verbal Notification: Recipient Understood Notice: Yes Recipient Signature: Yes Med Rec Note Co-signed by Attending: Coverage Notice Comment: Last DP export: 06/09/19 11:28 am Patient Name: SOTO BATES Page [phone] at 0759 All edits/amendments must be made on the electronic document DICTATION DATE: 06/10/19 0758 RESIDENCY PROGRAM COORDINATOR: KERMIT 06/10/19 0758 RPT#: [id number] DC DATE:06/09/19 STATUS: DIS IN [facility] [address] [place] [address] END OF REPORT
== END 2019-06-09 18:24 | DRG 884 ==
LOC: D.ER 10:00 → D.M2 14:00
PROVIDERS: Family Medicine; ADMIT Internal Medicine Nephrology; ATTEND Internal Medicine Nephrology
DX: R54 Age-related physical debility (principal); I13.0 Hypertensive heart and chronic kidney disease with heart failure and stage 1 through stage 4 chronic kidney disease, or unspecified chronic kidney disease; N18.4 Chronic kidney disease, stage 4 (severe); N17.9 Acute kidney failure, unspecified; I48.92 Unspecified atrial flutter; N39.0 Urinary tract infection, site not specified; I48.0 Paroxysmal atrial fibrillation; R94.31 Abnormal electrocardiogram [ECG] [EKG]; E11.22 Type 2 diabetes mellitus with diabetic chronic kidney disease; E78.5 Hyperlipidemia, unspecified; I50.9 Heart failure, unspecified; E03.9 Hypothyroidism, unspecified; E87.6 Hypokalemia; E66.9 Obesity, unspecified; Z68.29 Body mass index [BMI] 29.0-29.9, adult

== ENCOUNTER 2019-06-09 18:34 | Inpatient (IN) | payer MEDICARE, OTHER ==
[~2019-06-09] VITALS: Ht 175.3 cm; Wt 89.4 kg
[~2019-06-09 18:34] MED LIST changes: +FEXOFENADINE HC60 MG PO; +GLUCOTROL XL 5 M5 MG PO; +NYSTATIN1 PWD TOPICAL; +SYNTHROID112 MCG PO; +VENTOLIN HFA [SP] INH
[2019-06-09 19:38] VITALS: BP 132/71; BMI 29.1
--- NOTE | 2019-06-09 20:00 | NUR ---
PATIENT RECEIVED SITTING UP IN BED WATCHING TV. ASSESSMENT & VITAL SIGNS DONE. NO C/O PAIN OR DISTRESS. ADMIT PAPERS SIGNED. BED LOW. CALL LIGHT & BEDSIDE TABLE WITHIN REACH. WILL CONTINE TO MONITOR.
--- NOTE | 2019-06-09 21:21 | NUR ---
DR HERNANDEZ NOTIFIED AND REVIEWED PT's ASSESSMENT RESULTS. PT IS A LOW RISK PER DR HERNANDEZ. DR HERNANDEZ STATED TO GIVE RESOURCES TO PT AT TIME OF DISCHARGE. NO FURTHER ORDERS AT THIS TIME. RESOURCES REVIEWED WITH PT AND SHE VERBALIZED UNDERSTANDING.
--- NOTE | 2019-06-10 05:51 | NUR ---
PATIENT FSBS 83.
[2019-06-10 08:02] VITALS: BP 139/55
[2019-06-10 08:22] LABS: ANION GAP 11.3 mmol/L (8-16); BASOPHILS 0.8 % (0-2); CALCIUM 8.7 mg/dL (8.5-10.1); CARBON DIOXIDE 25.7 mmol/L (21.0-32.0); CREATININE - SERUM 3.5 mg/dL (0.6-1.3); EOSINOPHILS 9.9 % (0-7); HEMATOCRIT 32.1 % (36.0-48.0); HEMOGLOBIN 10.2 g/dL (12-16); IMMATURE GRANULOCYTES 0.4 % (0-5); LYMPHOCYTES 12.2 % (15-50); MCH 30.3 pg (26.0-34.0); MCHC 31.8 g/dL (31.0-37.0); MCV 95.3 fL (80.0-100.0); MEAN PLATELET VOLUME 10.6 fL (7.4-10.4); MONOCYTES 5.8 % (2-11); NEUTROPHILS 70.9 % (40-80); PLATELET COUNT 188 10x3/uL (130-400); RBC 3.37 10x6/uL (4.00-5.40); RDW 14.9 % (11.5-14.5); WBC 7.4 10x3/uL (4.8-10.8)
[2019-06-10 10:15] VITALS: BMI 29.1
--- NOTE | 2019-06-10 12:09 | RHP ---
PATIENT: SOTO BATES MEDICAL RECORD: [id number] ACCOUNT: [id number] LOCATION:[facility] : [birth year] ADMISSION DATE: 06/09/19 REHABILITATION HISTORY AND PHYSICAL EXAMINATION POST ADMISSION PHYSICIAN EXAMINATION ADMITTING DIAGNOSES: Debility secondary to Enterococcus faecalis and UTI. HISTORY OF PRESENT ILLNESS: The patient is a 73-year-old female patient who presented to ED after sustaining a fall in her bathroom the day prior to her acute hospital admit. She states over the month she has become progressively weaker and sustained a fall after she began shaking. She had a past medical history for diabetes, chronic renal failure, hypothyroidism, paroxysmal atrial fib, and arthritis. She was admitted to the hospital with UTI and possible sepsis. Her potassium was critically low at 2.7. This was replaced. The patient had cardiology consult during her stay. She was having some AFib, paroxysmally on monitors. She has been seen and been monitoring cardiac and managing cardiac medications throughout her stay. Monitoring her I's and O's, lab values secondary to her renal disease and antibiotic therapy for Enterococcus faecalis. She has become deconditioned. She has got debility, weakness and impaired mobility, gait disturbance, dyspnea on exertion. She is a high fall risk and self-care deficits. These are all barriers to her discharge home at this time. She lives at home with her granddaughter, was moderately independent with a rollator and independent with her ADLs, was able to cook and shower herself using a shower bench. She states that since her fall on 05/31/2019, she has had increasing anxiety, has been shaking so bad when attempted to do any type of ambulation that she has become weak and her fear of falling has kept her from doing much. She and her granddaughter plan for her return home with her home health set up for prior level of functioning or better if possible. COMORBIDITIES: Include Enterococcus faecalis in her urine, [id number] renal failure, chronic CHF, chronic generalized weakness, acute fall, leukocytosis, hypertension, AFib, hypothyroidism, edema, hypokalemia, obesity, acute anxiety, and abnormal EKG. PAST MEDICAL HISTORY: Significant for allergies, diabetes, thyroid problems, atrial fib, asthma, arthritis, AK in the past, chronic back pain, hernia, renal failure, UTI. PAST SURGICAL HISTORY: Includes hysterectomy. She has had a joint replacement, gallbladder surgery, tonsillectomy and adenoidectomy, bilateral knee replacements and fistula. ALLERGIES: SULFA, MORPHINE, IMODIUM, AND CIPRO. CURRENT MEDICATIONS: Include potassium 20 mEq daily, folic acid 0.4 mg daily, Omnicef 300 mg daily. She is on atorvastatin 80 mg daily, amlodipine 10 mg daily, glipizide 5 mg with meals, Synthroid 112 mcg daily, tramadol 50 mg q.8 hours p.r.n., nystatin powder to apply t.i.d., guaifenesin 600 mg b.i.d., Flonase nasal spray b.i.d., Adrianna 60 mg b.i.d., Zetia 10 mg at bedtime, Cardura 10 mg at bedtime, and amiodarone 200 mg b.i.d. HABITS: No alcohol or tobacco use. HISTORY AND PHYSICAL [id number] SUIT,NONDADEE FAMILY HISTORY: Noncontributory. SOCIAL HISTORY: The patient hopes to return back home with her granddaughter and get back to her prior level of function. REVIEW OF SYSTEMS: GENERAL: Does complain of weakness and fatigue. HEENT: Denies cold, cough, or congestion. CARDIOVASCULAR: Denies any chest pain. PHYSICAL EXAMINATION: VITAL SIGNS: Stable, afebrile. GENERAL: A morbidly obese female, in no acute distress, alert upon exam. HEENT: Normocephalic and atraumatic. Mucosa moist. NECK: Supple. No lymphadenopathy. LUNGS: Clear at this time. HEART: Irregular rate and rhythm at this point. LUNGS: Clear in upper prieto. ABDOMEN: Benign. EXTREMITIES: No clubbing, cyanosis or edema. NEUROLOGIC: She does have noted weakness. LABORATORY DATA: White count 7.4, H&H of 10 and 32, and platelet count is noted to be 188. Sodium 142, potassium 4.0, BUN and creatinine of 66 and 3.5 and blood sugar is noted to be 78. ASSESSMENT: This is a 73-year-old female patient admitted to rehab with a working diagnosis of debility secondary to UTI with Enterococcus faecalis. The patient has potential to make improvement. We instituted the following multidisciplinary therapies include, but not limited to physical, occupational, respiratory, speech, nutritional services, prosthetics and orthotics. Given her complex medical condition and risk for more complications, rehabilitation services cannot be provided at a low level of care such as skilled nurse facility. PLAN: 1. Admit to [facility] rehab or inpatient therapy to include the following disciplines: A. Physical therapy to improve gait, all transfer skills and bed mobility to a modified independent level. B. Occupational therapy to improve activities of daily living to a modified independent level. C. Case management to assist with discharge planning and placement options. D. Nutrition to assist with nutritional needs. E. Rehabilitation nursing to assist in monitoring the patient's underlying medical conditions and to assist with any type of bowel or bladder management. 2. The patient's current medication and medical care will be continued. 3. The patient will be placed on standard fall precautions. 4. The patient's estimated length of stay is approximately 7-10 days. 5. Discussed with patient during care team staff meeting this week. TRANSINT:[id number] Voice Confirmation ID: [id number] DOCUMENT ID: [id number] CELIO notes whether there has been none or any medical/functional HISTORY AND PHYSICAL [id number] SUIT,NONDADEE change since admission: - No change since prescreen. CELIO attests patient continues to be appropriate for IRF: - Continues to be approriate. SALLY TIPTON MD at 1209 CC: [id number] DICTATION DATE: 06/10/19 0842 LAB CLERK: 06/10/19925 ADM IN [facility] [address] [place] [address]
--- NOTE | 2019-06-10 19:25 | NUR ---
PT RESTING QUIETLY. EYES CLOSED. CL IN REACH. NO DISTRESS NOTED. WCTM
--- NOTE | 2019-06-10 21:30 | NUR ---
ASSISTED PT TO AND FROM BATHROOM. CL IN REACH. DENIES NEEDS OR PAIN AT THIS TIME. BED IN LOW SIDE RAILS X2. LUNGS CLEAR. BOWEL ACTIVE X4. A/O X4. ASSESSMENT COMPLETED. RESP EVEN AND UNLABORED. WCTM
[2019-06-10 21:57] VITALS: BP 165/66
--- NOTE | 2019-06-10 22:45 | NUR ---
FSBS 131
--- NOTE | 2019-06-10 22:45 | NUR ---
FSBS 132
--- NOTE | 2019-06-11 04:31 | NUR ---
I have reviewed this patient and I concur with the Shift Assessment completed by the Licensed Practical Nurse today this shift.
--- NOTE | 2019-06-11 05:06 | NUR ---
ASSISTED TO AND FROM BATHROOM. CL IN REACH. BACK IN BED. BED IN LOW. DENIES FURTHER NEEDS. WCTM
--- NOTE | 2019-06-11 05:59 | NUR ---
FSBS 88
[2019-06-11 08:00] VITALS: BP 151/72
--- NOTE | 2019-06-11 08:37 | NUR ---
PT RESTING IN BED WITH EYES OPEN CALL LIGHT IN REACH NO PROBLEMS WILL MONITER
--- NOTE | 2019-06-11 18:13 | NUR ---
PT RESTING IN CHAIR AT BEDSIDE EATING SUPPER TOLERATING WELL WILL MONITER
[2019-06-11 19:44] VITALS: BP 142/74; BP 159/82
[2019-06-11 19:50] VITALS: BP 159/82
--- NOTE | 2019-06-11 19:56 | NUR ---
AWAKE AND ALERT. SITTING IN WHEELCHAIR TALKING WITH ROOMMATE. LEFT ARM FISTULA INTACT. NO C/O DISCOMFORTS AND NO DISTRESS NOTED.
--- NOTE | 2019-06-12 03:23 | NUR ---
RESTING IN BED WITH EYES CLOSED AND RESPRIATIONS UNLABORED. NO DISTRESS NOTED. CALL LIGHT IN REACH.
--- NOTE | 2019-06-12 04:59 | NUR ---
QUIET HOURS. RESTING IN BED WITH NO DISTRESS NOTED. NO ACUTE CHANGES IN CONDITION THIS SHIFT. CALL LIGHT IN REACH.
[2019-06-12 06:19] LABS: BASOPHILS 1.2 % (0-2); EOSINOPHILS 11.1 % (0-7); HEMATOCRIT 29.3 % (36.0-48.0); HEMOGLOBIN 9.3 g/dL (12-16); IMMATURE GRANULOCYTES 0.4 % (0-5); LYMPHOCYTES 12.3 % (15-50); MCH 30.1 pg (26.0-34.0); MCHC 31.7 g/dL (31.0-37.0); MCV 94.8 fL (80.0-100.0); MEAN PLATELET VOLUME 10.3 fL (7.4-10.4); PLATELET COUNT 186 10x3/uL (130-400); RBC 3.09 10x6/uL (4.00-5.40); RDW 14.9 % (11.5-14.5); WBC 7.4 10x3/uL (4.8-10.8)
[2019-06-12 06:37] LABS: ANION GAP 12.4 mmol/L (8-16); CALCIUM 8.6 mg/dL (8.5-10.1); CARBON DIOXIDE 25.4 mmol/L (21.0-32.0); CREATININE - SERUM 3.7 mg/dL (0.6-1.3); PHOSPHOROUS 4.4 mg/dL (2.5-4.9); POTASSIUM - SERUM 3.8 mmol/L (3.5-5.1)
--- NOTE | 2019-06-12 07:02 | NUR ---
RECEIVED REPORT. LYING IN BED SUPINE HOB 30 DEGREES EYES CLOSED RESTING. NO SIGNS OF DISTRESS NOTED. CALL LIGHT WITHIN REACH, FALL PRECAUTIONS IN PLACE. WILL CONTINUE TO MONITOR
[2019-06-12 08:00] VITALS: BP 166/80
--- NOTE | 2019-06-12 11:47 | NUR ---
SITTING UP IN W/C READING NEWSPAPER. DENIES ANY NEEDS OR PAIN. NO SIGNS OF DISTRESS NOTED. WILL CONTINUE TO MONITOR
--- NOTE | 2019-06-12 13:50 | NUR ---
OFF FLOOR WITH FAMILY OUT FRONT.
--- NOTE | 2019-06-12 13:54 | NUR ---
RETURN TO FLOOR VIA W/C ACCOMPANIED BY FAMILY
--- NOTE | 2019-06-12 17:03 | NUR ---
SITTING UP IN W/C EATING DINNER. NO SIGNS OF DISTRESS NOTED
[2019-06-12 19:40] VITALS: BP 151/74
--- NOTE | 2019-06-12 19:52 | NUR ---
AWAKE AND ALERT. SITTING ON SIDE OF BED. RESPIRATIONS UNLABORED. NO ACUTE DISTRESS NOTED. LEFT ARM FISTUALA INTACT.
--- NOTE | 2019-06-13 05:04 | NUR ---
QUIET HOURS. RESTING IN BED WITH NO DISTRESS NOTED. NO ACUTE CHANGES IN CONDITION THIS SHIFT. CALL MICHAELA AHUMADA.
--- NOTE | 2019-06-13 07:03 | NUR ---
RECEIVED REPORT. LYING IN BED HOB 30 DEGREES EYES CLOSED RESTING. NO SIGNS OF DISTRESS NOTED. CALL LIGHT WITHIN REACH, FALL PRECAUTIONS IN PLACE. WILL CONTINUE TO MONITOR
[2019-06-13 07:50] VITALS: BP 144/77
--- NOTE | 2019-06-13 12:33 | NUR ---
SITTING UP IN W/C EATING LUNCH. FAMILY AT BEDSIDE NOTED. NO SIGNS OF DISTRESS NOTED. WILL CONTINUE TO MONITOR
--- NOTE | 2019-06-13 15:36 | NUR ---
SITTING UP IN CHAIR VISITING WITH DAUGHTER. NO SIGNS OF DISTRESS.
--- NOTE | 2019-06-13 17:36 | NUR ---
SITTING UP ON SIDE OF BED EATING DINNER. NO SIGNS OF DISTRESS NOTED. DENIES ANY NEEDS OR PAIN. WILL CONTINUE TO MONITOR
--- NOTE | 2019-06-13 19:23 | NUR ---
GREETED PATIENT AND INTRODUCED MYSELF. PATIENT IS SITTING UP IN BED. SR UP X 2. BED IN LOWEST POSITION. DENIES ANY NEEDS AT THIS TIME. CALL LIGHT IN REACH.
[2019-06-13 20:13] VITALS: BP 161/76
[2019-06-13 20:24] VITALS: BP 161/76
--- NOTE | 2019-06-14 03:33 | NUR ---
PATIENT RESTING QUIETLY WITH EYES CLOSED. RESPIRATIONS EVEN. NO S/S OF DISTRESS. CALL LIGHT IN REACH.
[2019-06-14 06:52] LABS: ALBUMIN 2.5 g/dL (3.4-5.0); ANION GAP 12.7 mmol/L (8-16); BILIRUBIN - TOTAL 0.33 mg/dL (0.2-1.3); CALCIUM 8.4 mg/dL (8.5-10.1); CREATININE - SERUM 3.4 mg/dL (0.6-1.3); POTASSIUM - SERUM 3.7 mmol/L (3.5-5.1); PROTEIN - SERUM 6.1 g/dL (6.4-8.2)
[2019-06-14 07:10] VITALS: BP 121/52
--- NOTE | 2019-06-14 07:10 | NUR ---
RECEIVED REPORT. LYING IN BED ON LEFT SIDE EYES CLOSED RESTING. EASILY AROUSED WITH STIMULI. DENIES ANY PAIN. VS STABLE, SHIFT ASSESSMENT COMPLETED. ASSIST TO RESTROOM WITH SBA. CALL LIGHT WITHIN REACH, FALL PRECAUTIONS IN PLACE. WILL CONTINUE TO MONITOR
--- NOTE | 2019-06-14 12:48 | NUR ---
SITTING UP ON SIDE OF BED EATING LUNCH. DENIES ANY NEEDS OR PAIN. NO SIGNS OF DISTRESS NOTED.
--- NOTE | 2019-06-14 13:30 | NUR ---
ASSISTED WITH SHOWER SETUP. PT SHOWERED INDEPENDENTLY WITH SUPERVISION, WAS ABLE TO DRESS SELF WITHOUT ASSISTANCE.
--- NOTE | 2019-06-14 17:41 | NUR ---
SITTING UP ON SIDE OF BED EATING DINNER. DENIES ANY NEEDS OR PAIN. NO SIGNS OF DISTRESS NOTED. CALL LIGHT WITHIN REACH, FALL PRECAUTIONS IN PLACE. WILL CONTINUE TO MONITOR
--- NOTE | 2019-06-14 19:30 | NUR ---
PATIENT RESTING QUIETLY IN BED A THIS TIME. ALERT AND ORIENTED X 3. NO COMPLAINTS OF DISCOMFORT OR PAIN AT THIS TIME. WILL CONTINUE TO MONITOR. CALL LIGHT WITHIN REACH.
--- NOTE | 2019-06-14 20:45 | NUR ---
PATIENT REQUESTED TRAMADOL AND BENADRYL. GAVE THESE PRN MEDICATIONS TO PATIENT AND HAD GOOD RESULTS.
[2019-06-14 22:51] VITALS: BP 158/78
--- NOTE | 2019-06-15 01:57 | NUR ---
PATIENT SLEEPING AT THIS TIME. WILL CONTINUE TO MONITOR.
[2019-06-15 06:32] LABS: BASOPHILS 0.9 % (0-2); HEMATOCRIT 28.6 % (36.0-48.0); HEMOGLOBIN 9.2 g/dL (12-16); IMMATURE GRANULOCYTES 0.3 % (0-5); LYMPHOCYTES 14.5 % (15-50); MCH 30.3 pg (26.0-34.0); MCHC 32.2 g/dL (31.0-37.0); MCV 94.1 fL (80.0-100.0); MONOCYTES 7.4 % (2-11); NEUTROPHILS 64.9 % (40-80); PLATELET COUNT 210 10x3/uL (130-400); RBC 3.04 10x6/uL (4.00-5.40); RDW 15.3 % (11.5-14.5)
[2019-06-15 06:45] LABS: ANION GAP 11.4 mmol/L (8-16); CALCIUM 8.3 mg/dL (8.5-10.1); CARBON DIOXIDE 25.3 mmol/L (21.0-32.0); CREATININE - SERUM 3.2 mg/dL (0.6-1.3); POTASSIUM - SERUM 3.7 mmol/L (3.5-5.1)
[2019-06-15 08:00] VITALS: BP 140/45; BP 145/69
--- NOTE | 2019-06-15 08:15 | NUR ---
PT RESTING IN BED WITH EYES OPEN CALL LIGHT IN REACH WILL MONITER
--- NOTE | 2019-06-15 13:44 | NUR ---
PT RESTING IN BED WITH EYES OPEN CALL LIGHT IN REACH NO PROBLEMS WILL MONITER
--- NOTE | 2019-06-15 14:03 | NUR ---
PATIENT ADMITTED TO REHAB FROM ACUTE FLOOR.DR. WILLAMS IS HER PCP AND SHE WILL WILL NEED AN APPOINTMENT WITH DR. JAIME. DME AT HOME IS BEDSIDE COMMODE, WALKER, WHEELCHAIR, NEBULIZER AND SHOWER CHAIR. HER DME COMPANY IS [employer]. SHE HAS OUT PATIENT THERAPY AT [facility]. WILL CONTINUE TO FOLLOW WITH PATIENT
--- NOTE | 2019-06-15 18:08 | NUR ---
PT RESTING IN BED WATCHING TV CALL LIGHT IN REACH NO PROBLEMS WILL MONITER
--- NOTE | 2019-06-15 19:36 | NUR ---
AWAKE AND ALERT. WHEELING AROUND UNIT IN WHEELCHAIR. LEFT ARM FISTULA INTACT. RESPIRATIONS UNLABORED. NO DISTRESS NOTED. CALL LIGHT IN REACH.
[2019-06-15 21:57] VITALS: BP 146/65
--- NOTE | 2019-06-16 04:59 | NUR ---
QUIET HOURS. NO ACUTE CHANGES IN CONDITION THIS SHIFT. RESTING IN BED WITH NO DISTRESS NOTED. CALL LIGHT IN REACH.
--- NOTE | 2019-06-16 07:10 | NUR ---
RECEIVED REPORT. SITTING UP IN BED ALERT AND ORIENTED X4. DENIES ANY NEEDS OR PAIN. NO SIGNS OF DISTRESS NOTED. VS STABLE SHIFT ASSESSMENT COMPLETE. CALL LIGHT WITHIN REACH, FALL PRECAUTIONS IN PLACE. WILL CONTINUE TO MONITOR
[2019-06-16 07:15] VITALS: BP 137/78
[2019-06-16 07:24] LABS: ALBUMIN 2.5 g/dL (3.4-5.0); ANION GAP 12.5 mmol/L (8-16); BILIRUBIN - TOTAL 0.32 mg/dL (0.2-1.3); CALCIUM 8.1 mg/dL (8.5-10.1); CARBON DIOXIDE 24.4 mmol/L (21.0-32.0); CREATININE - SERUM 3.4 mg/dL (0.6-1.3); POTASSIUM - SERUM 3.9 mmol/L (3.5-5.1); PROTEIN - SERUM 5.9 g/dL (6.4-8.2)
--- NOTE | 2019-06-16 12:00 | NUR ---
SITTING UP IN W/C WATCHING TV. DENIES ANY NEEDS OR PAIN. NO SIGNS OF DISTRESS NOTED.
--- NOTE | 2019-06-16 14:26 | NUR ---
IN THERAPY GYM PARTICIPATING IN OT. NO SIGNS OF DISTRESS NOTED. WILL CONTINUE TO MONITOR
--- NOTE | 2019-06-16 17:35 | NUR ---
SITTING UP ON SIDE OF BED EATING DINNER. NO SIGNS OF DISTRESS NOTED. WILL CONTINUE TO MONITOR
[2019-06-16 19:39] VITALS: BP 149/74
--- NOTE | 2019-06-16 20:11 | NUR ---
AWAKE AND ALERT. RESTING IN BED WITH RESPIRAITONS UNLABORED. NO DISTRESS NOTED. LEFT FISTUALA INTACT. NO NEEDS VOICED. CALL LIGHT IN REACH.
--- NOTE | 2019-06-17 02:24 | NUR ---
RESTING IN BED WITH RESPIRATIONS UNLABORED. NO DISTRESS NOTED. CALL LIGHT IN REACH.
--- NOTE | 2019-06-17 04:57 | NUR ---
QUIET HOURS. NO ACUTE CHANGES IN CONDITION THIS SHIFT. RESTING IN BED WITH NO DISTRESS NOTED. CALL MICHAELA AHUMADA.
[2019-06-17 07:22] LABS: BASOPHILS 0.7 % (0-2); EOSINOPHILS 8.3 % (0-7); HEMOGLOBIN 8.9 g/dL (12-16); IMMATURE GRANULOCYTES 0.4 % (0-5); LYMPHOCYTES 9.6 % (15-50); MCH 30.2 pg (26.0-34.0); MCHC 31.8 g/dL (31.0-37.0); MCV 94.9 fL (80.0-100.0); MEAN PLATELET VOLUME 10.3 fL (7.4-10.4); PLATELET COUNT 212 10x3/uL (130-400); RBC 2.95 10x6/uL (4.00-5.40); RDW 15.4 % (11.5-14.5); WBC 6.9 10x3/uL (4.8-10.8)
[2019-06-17 07:33] LABS: ANION GAP 13.8 mmol/L (8-16); CALCIUM 8.5 mg/dL (8.5-10.1); CARBON DIOXIDE 23.1 mmol/L (21.0-32.0); CREATININE - SERUM 3.2 mg/dL (0.6-1.3); POTASSIUM - SERUM 3.9 mmol/L (3.5-5.1)
[2019-06-17 08:00] VITALS: BP 145/81
--- NOTE | 2019-06-17 08:00 | NUR ---
ALERT AND ORIENTED. EATING BREAKFAST. NO C/O PAIN. CL IN REACH. RESP EVEN AND UNLABORED.
[2019-06-17 10:04] VITALS: Ht 175.3 cm; Wt 89.4 kg
--- NOTE | 2019-06-17 13:52 | NUR ---
PARTICIPATING IN THERAPY. NO C/O PAIN.
--- NOTE | 2019-06-17 14:33 | NUR ---
CARE TEAM MEETING: PATIENTS FAMILY ATTENDED MEETING. QUESTIONS AND CONCERNS WERE ADDRESSED. TENATIVE DISCHARGE DATE IS 06/19/19.WILL CONTINUE TO FOLLOW WITH PATIENT.
--- NOTE | 2019-06-17 18:13 | NUR ---
NO CHANGE IN ASSESSMENT. ALERT AND ORIENTED. NO DISTRESS NOTED.
--- NOTE | 2019-06-17 19:37 | NUR ---
AWAKE AND ALERT. RESTING IN BED WITH RESPIRAITONS UNLABORED. NO DISTRESS NOTED. LEFT ARM FISTULA INTACT. CALL LIGHT IN REACH.
[2019-06-17 20:40] VITALS: BP 134/62
--- NOTE | 2019-06-18 05:22 | NUR ---
QUIET HOURS. NO ACUTE CHANGES IN CONDITIION THIS SHIFT. RESTING IN BED WITH NO DISTRESS NOTED. CALL LIGHT IN REACH.
[2019-06-18 07:11] LABS: ALBUMIN 2.9 g/dL (3.4-5.0); ANION GAP 13.6 mmol/L (8-16); BILIRUBIN - TOTAL 0.36 mg/dL (0.2-1.3); CALCIUM 8.5 mg/dL (8.5-10.1); CARBON DIOXIDE 24.2 mmol/L (21.0-32.0); CREATININE - SERUM 3.3 mg/dL (0.6-1.3); POTASSIUM - SERUM 3.8 mmol/L (3.5-5.1); PROTEIN - SERUM 6.9 g/dL (6.4-8.2)
[2019-06-18 08:00] VITALS: BP 129/74
--- NOTE | 2019-06-18 08:15 | NUR ---
PT RESTING IN BED WITH EYES OPEN CALL LIGHT IN REACH NO PROBLEMS WILL MONITER
--- NOTE | 2019-06-18 15:12 | NUR ---
PATIENT DISCHARGING HOME IN AM. [facility] WILL FOLLOW WITH PATIENT AT HOME. NO NEW DME NEEDED AT THIS TIME. DR. WILLAMS 06/29/19 @ 11:15, DR. SOTO 06/30/19 @ 11:40. PATIENT CHOICE FORM AND IMFM FORMS SIGNED, COPY GIVEN TO PATIENT AND FILED IN CHART. DISCHARGE INSTRUCTIONS WITH FIM DATA WILL BE FAXED TO HOME HEALTH, PCP AND REVIEWED WITH PATIENT. WILL CONTINUE TO FOLLOW WITH PATIENT
--- NOTE | 2019-06-18 18:32 | NUR ---
PT RESTING IN BED WITH EYES OPEN CALL LIGHT IN REACH WILL MONITER
--- NOTE | 2019-06-18 19:42 | NUR ---
PATIENT RECEIVED SITTING UP IN WHEELCHAIR. ASSESSMENT & VITAL SIGNS DONE. NO C/O PAIN OR DISTRESS. DAUGHTER VISITING. CALL LIGHT WITHIN REACH. WILL CONTINUE TO MONITOR.
[2019-06-18 19:59] VITALS: BP 122/47
--- NOTE | 2019-06-19 02:22 | NUR ---
PATIENT AWAKE. TOILETED, VOID ONLY. RETURNED TO LOW BED. CALL LIGHT WITHIN REACH. WILL CONTINUE TO MONITOR.
--- NOTE | 2019-06-19 06:16 | NUR ---
I have reviewed this patient and I concur with the Shift Assessment completed by the Licensed Practical Nurse today this shift.
[2019-06-19 06:53] LABS: BASOPHILS 0.5 % (0-2); EOSINOPHILS 7.2 % (0-7); HEMOGLOBIN 8.8 g/dL (12-16); IMMATURE GRANULOCYTES 0.5 % (0-5); MCH 29.7 pg (26.0-34.0); MCHC 31.4 g/dL (31.0-37.0); MCV 94.6 fL (80.0-100.0); MEAN PLATELET VOLUME 10.1 fL (7.4-10.4); MONOCYTES 7.1 % (2-11); NEUTROPHILS 74.7 % (40-80); PLATELET COUNT 227 10x3/uL (130-400); RBC 2.96 10x6/uL (4.00-5.40); RDW 15.6 % (11.5-14.5); WBC 7.3 10x3/uL (4.8-10.8)
[2019-06-19 07:08] LABS: ANION GAP 12.1 mmol/L (8-16); CALCIUM 8.2 mg/dL (8.5-10.1); CARBON DIOXIDE 24.5 mmol/L (21.0-32.0); CREATININE - SERUM 3.2 mg/dL (0.6-1.3); POTASSIUM - SERUM 3.6 mmol/L (3.5-5.1)
--- NOTE | 2019-06-19 08:15 | NUR ---
PT RESTING IN BED EATING BREAKFAST TOLERATED WILL MONITER
[2019-06-19 08:31] VITALS: BP 164/87
--- NOTE | 2019-06-19 11:56 | NUR ---
Called and faxed Eliza at [facility] the discharge order, instructions, H&P, last FIMS and discharge med rec. patient is to discharge home today. Jocelynn Cedillo RN Clinical Liaison, Rehab
--- NOTE | 2019-06-19 12:20 | NUR ---
PT DISCHARGED TO HOME VIA WHEELCHAIR WITH [facility] DISCHARGE SUMMARY AND MEDS REVIEWED NO QUESTIONS OR CONCERNS.
== END 2019-06-19 14:32 | disposition home health service (06) | DRG 948 ==
LOC: D.REHAB 18:34
PROVIDERS: Internal Medicine Nephrology; ADMIT Emergency Medicine; ATTEND Emergency Medicine
DX: R53.81 Other malaise (principal); N39.0 Urinary tract infection, site not specified; I13.0 Hypertensive heart and chronic kidney disease with heart failure and stage 1 through stage 4 chronic kidney disease, or unspecified chronic kidney disease; N17.9 Acute kidney failure, unspecified; B95.2 Enterococcus as the cause of diseases classified elsewhere; E11.22 Type 2 diabetes mellitus with diabetic chronic kidney disease; N18.9 Chronic kidney disease, unspecified; I50.9 Heart failure, unspecified; R53.1 Weakness; E03.9 Hypothyroidism, unspecified; E66.9 Obesity, unspecified; D72.829 Elevated white blood cell count, unspecified; I48.91 Unspecified atrial fibrillation; R60.9 Edema, unspecified; E87.6 Hypokalemia; F41.9 Anxiety disorder, unspecified; R94.31 Abnormal electrocardiogram [ECG] [EKG]; E11.65 Type 2 diabetes mellitus with hyperglycemia; E78.5 Hyperlipidemia, unspecified

== ENCOUNTER 2019-08-03 21:33 | Inpatient (IN) | payer MEDICARE, OTHER ==
[~2019-08-03] VITALS: Ht 175.3 cm; Wt 109.2 kg
[2019-08-03] MEDS ORDERED: LASIX40 MG PO (21:39)
[2019-08-03] MEDS ORDERED: GABAPENTIN100 MG PO (21:40)
[2019-08-03] MEDS ORDERED: GLIPIZIDE10 MG PO ×2 (21:41)
[2019-08-03] MEDS ORDERED: NIZORAL 2 % SH120 ML TOPICAL (21:43)
[2019-08-03] MEDS ORDERED: K-TAB10 MEQ PO (21:44)
[2019-08-03] MEDS ORDERED: SYNTHROID50 MCG PO (21:45)
[2019-08-03] MEDS ORDERED: COREG6.25 MG PO (21:46)
[2019-08-03 22:02] LABS: APPEARANCE CLEAR (CLEAR); BILIRUBIN NEGATIVE (NEGATIVE); COLOR STRAW (YELLOW); GLUCOSE NEGATIVE (NEGATIVE); KETONE NEGATIVE (NEGATIVE); NITRITE NEGATIVE (NEGATIVE); PROTEIN 2+ mg/dL (NEGATIVE); SPECIFIC GRAVITY 1.015 (1.005-1.020); UROBILINOGEN NORMAL (NORMAL)
[2019-08-03 22:05] LABS: BASOPHILS 0.1 % (0-2); EOSINOPHILS 0.2 % (0-7); HEMATOCRIT 36.6 % (36.0-48.0); HEMOGLOBIN 11.7 g/dL (12-16); IMMATURE GRANULOCYTES 0.4 % (0-5); LYMPHOCYTES 1.4 % (15-50); MCH 31.3 pg (26.0-34.0); MCV 97.9 fL (80.0-100.0); MEAN PLATELET VOLUME 11.3 fL (7.4-10.4); NEUTROPHILS 93.9 % (40-80); PLATELET COUNT 199 10x3/uL (130-400); RBC 3.74 10x6/uL (4.00-5.40); RDW 16.4 % (11.5-14.5); WBC 17.9 10x3/uL (4.8-10.8)
[2019-08-03 22:09] LABS: BACTERIA FEW /hpf (NONE SEEN); EPITHELIAL CELLS NSEEN /hpf (0-5); RED CELLS - URINE NONE SEEN /hpf (0-5); WHITE CELLS - URINE 0-5 /hpf (0-5)
[2019-08-03 22:17] LABS: ALBUMIN 3.1 g/dL (3.4-5.0); ANION GAP 16.1 mmol/L (8-16); BILIRUBIN - TOTAL 0.63 mg/dL (0.2-1.3); CALCIUM 9.1 mg/dL (8.5-10.1); CARBON DIOXIDE 25.3 mmol/L (21.0-32.0); CREATININE - SERUM 5.6 mg/dL (0.6-1.3); POTASSIUM - SERUM 4.4 mmol/L (3.5-5.1); PROTEIN - SERUM 6.9 g/dL (6.4-8.2)
--- NOTE | 2019-08-03 22:24 | NUR ---
[facility] CONNECTED TO PT AT 40 CONT SUCTION
[2019-08-03 22:27] LABS: THYROID STIMULATING HORMONE 10.25 uIU/mL (0.36-3.74)
[2019-08-04] MEDS ORDERED: FERRIC CITRATE210 MG PO (00:55)
[2019-08-04] MEDS ORDERED: COZAAR100 MG PO (00:55)
[2019-08-04] MEDS ORDERED: LASIX40 MG PO (00:56)
[2019-08-04] MEDS ORDERED: GUAIFENESI100 MG/5 M PO (00:57)
[2019-08-04] MEDS ORDERED: METOLAZONE5 MG PO (00:58)
[2019-08-04 01:19] VITALS: BP 144/79; BMI 34.0
--- NOTE | 2019-08-04 01:29 | NUR ---
RECIEVED REPORT FROM URI CRAMER IN ER. ARRIVED TO FLOOR ON STRETCHER. REQUIRED 3 STAFF TO TRANSFER TO BED. ALERT AND ORIENTED X4. UNABLE TO AMBULATE. REPORTED FALL AT HOME TODAY AND UNABLE TO GET UP. ALERT AND ORIENTED .DENIES ANY NEEDS AT THIS TIME.
[2019-08-04 04:00] VITALS: BP 144/75
[2019-08-04 05:25] LABS: BASOPHILS 0.1 % (0-2); EOSINOPHILS 0 % (0-7); HEMATOCRIT 33.3 % (36.0-48.0); IMMATURE GRANULOCYTES 0.3 % (0-5); LYMPHOCYTES 1.8 % (15-50); MCH 32.3 pg (26.0-34.0); MCV 97.7 fL (80.0-100.0); MEAN PLATELET VOLUME 10.9 fL (7.4-10.4); MONOCYTES 3.8 % (2-11); PLATELET COUNT 170 10x3/uL (130-400); RBC 3.41 10x6/uL (4.00-5.40); RDW 16.6 % (11.5-14.5); WBC 16.3 10x3/uL (4.8-10.8)
[2019-08-04 05:38] LABS: APTT 33.4 SECONDS (22.8-39.4); INR 1.58 (0.85-1.17); PROTIME 18.3 SECONDS (11.6-15.0)
[2019-08-04 05:43] LABS: ANION GAP 16.5 mmol/L (8-16); CALCIUM 8.7 mg/dL (8.5-10.1); CARBON DIOXIDE 25.3 mmol/L (21.0-32.0); CREATININE - SERUM 5.5 mg/dL (0.6-1.3); MAGNESIUM - SERUM 1.4 mg/dL (1.8-2.4); PHOSPHOROUS 4.8 mg/dL (2.5-4.9); POTASSIUM - SERUM 3.8 mmol/L (3.5-5.1)
--- NOTE | 2019-08-04 07:50 | NUR ---
MEDICATED FOR NAUSEA AT THIS TIME. PATIENT DRY HEAVING. COMPLAINS OF TICKLE IN THROAT. PATIENT HAS A CAROTID TUMOR THAT PUSHES ON TRACHEA CAUSING IRRITATION. FAMILY AT BEDSIDE. NO DISTRESS.
--- NOTE | 2019-08-04 08:30 | NUR ---
PT ASSISTED ON TO BED CADENA PT VOIDED YELLOW URINE PT CLEANED DRYED AND TAKEN OFF BED CADENA BED SET UP PT ASSITED WITH SET UP OFF BREAKFAST CALL LIGHT IN REACH NO PROBLEMS WILL MONITER
[2019-08-04 09:47] VITALS: BP 136/65
[2019-08-04 12:26] VITALS: Ht 175.3 cm; Wt 109.2 kg
[2019-08-04 12:34] VITALS: BP 140/79
--- NOTE | 2019-08-04 17:00 | NUR ---
I have reviewed this patient and I concur with the Shift Assessment completed by the Licensed Practical Nurse today this shift.
--- NOTE | 2019-08-04 18:09 | NUR ---
PT RESTING IN BED WITH EYES OPEN CALL LIGHT IN REACH GRANDDAUGHTER AT BEDSIDE CALL LIGHT IN REACH NO PROBLEMS WILL MONITER
--- NOTE | 2019-08-04 19:31 | NUR ---
REPORT RECEIVED FROM DAY SHIFT, PT CARE ASSUMED. INTRODUCED SELF AND WROTE NAME ON BOARD. PT LYING IN BED, AAOX4, DENIES ANY NEEDS AT THIS TIME. BED IN LOWEST POSITION, SR X2, CALL LIGHT WITHIN REACH. WILL CONTINUE TO MONITOR.
[2019-08-04 20:00] VITALS: BP 125/60
--- NOTE | 2019-08-04 21:40 | NUR ---
PT RESTING IN BED WITH EYES CLOSED, RR EVEN AND NONLABORED, NO S/S DISTRESS. EASILY AROUSED BY VOICE. NIGHT TIME MEDS GIVEN, PER ORDER. FSBS 110. BED IN LOWEST POSITION, SR X3, CALL LIGHT WITHIN REACH. WILL CONTINUE TO MONITOR.
[2019-08-05 00:41] VITALS: BP 128/69
--- NOTE | 2019-08-05 03:34 | NUR ---
PT LYING IN BED WITH EYES CLOSED, RR EVEN AND NONLABORED, NO S/S OF DISTRESS, AROUSED EASILY TO VOICE. DENIES ANY NEEDS AT THIS TIME. BED IN LOWEST POSITION, SR X3, CALL LIGHT WITHIN REACH. WILL CONTINUE TO MONITOR.
[2019-08-05 04:00] VITALS: BP 127/73
[2019-08-05 05:09] LABS: BASOPHILS 0.1 % (0-2); EOSINOPHILS 0.9 % (0-7); HEMATOCRIT 31.2 % (36.0-48.0); HEMOGLOBIN 9.8 g/dL (12-16); IMMATURE GRANULOCYTES 0.2 % (0-5); LYMPHOCYTES 4.2 % (15-50); MCH 31.4 pg (26.0-34.0); MCHC 31.4 g/dL (31.0-37.0); MONOCYTES 4.8 % (2-11); NEUTROPHILS 89.8 % (40-80); PLATELET COUNT 154 10x3/uL (130-400); RBC 3.12 10x6/uL (4.00-5.40); RDW 16.8 % (11.5-14.5); WBC 13.2 10x3/uL (4.8-10.8)
[2019-08-05 05:10] LABS: ANION GAP 12.2 mmol/L (8-16); BILIRUBIN - DIRECT 0.16 mg/dL (0.00-0.30); BILIRUBIN - INDIRECT 0.29 mg/dL (0.00-1.00); BILIRUBIN - TOTAL 0.45 mg/dL (0.2-1.3); CALCIUM 7.9 mg/dL (8.5-10.1); CARBON DIOXIDE 27.3 mmol/L (21.0-32.0); CREATININE - SERUM 5.4 mg/dL (0.6-1.3); MAGNESIUM - SERUM 1.6 mg/dL (1.8-2.4); PHOSPHOROUS 5.4 mg/dL (2.5-4.9); POTASSIUM - SERUM 3.5 mmol/L (3.5-5.1); PROTEIN - SERUM 5.8 g/dL (6.4-8.2); VANCOMYCIN - RANDOM 9.5 ug/mL (10.0-20.0)
[2019-08-05 05:14] LABS: ALBUMIN 2.2 g/dL (3.4-5.0)
--- NOTE | 2019-08-05 08:00 | NUR ---
PT RESTING IN BED, SHIFT ASSESSMENT PERFORMED. DENIES ANY NEEDS AT THIS TIME. WILL CONT TO FOLLOW POC
[2019-08-05 08:20] VITALS: BP 98/41
--- NOTE | 2019-08-05 09:00 | NUR ---
16FR CAAL CATHETER INSERTED ORDERED VIA STERILE TECHNIQUE. PT TOLERATED WELL. CAAL BAG PLACED IN A BUCKET OF ICE FOR 24HR URINE.
[2019-08-05 11:38] VITALS: BP 105/50
--- NOTE | 2019-08-05 12:20 | NUR ---
PT SITTING IN BED EATING LUNCH, DENIES ANY NEEDS AT THIS TIME, WILL CONT TO FOLLOW POC
[2019-08-05 14:03] VITALS: BP 134/67
--- NOTE | 2019-08-05 17:52 | NUR ---
PT SITTING IN BED EATING SUPPER, DENIES ANY NEEDS AT THIS TIME, WILL CONT TO FOLLOW POC
--- NOTE | 2019-08-05 19:19 | NUR ---
REPORT RECEIVED FROM DAY SHIFT, PT CARE ASSUMED. WROTE NAME ON BOARD. PT SITTING UP IN BED WATCHING TV, AAOX4, FAMILY AT BEDSIDE. DENIES PAIN OR ANY NEEDS AT THIS TIME. BED IN LOWEST POSITION, SR X3, CALL LIGHT WITHIN REACH. WILL CONTINUE TO MONITOR.
[2019-08-05 20:00] VITALS: BP 162/73
--- NOTE | 2019-08-05 21:48 | NUR ---
PIV INFILTRATED, REDNESS AND EDEMA NOTED AT SITE. REMOVED IV, CATHETER TIP INTACT, PT TOLERATED WELL.
[2019-08-06] VITALS: BP 160/85
--- NOTE | 2019-08-06 01:38 | NUR ---
PT LYING IN BED WITH EYES CLOSED, RR EVEN AND NONLABORED, NO S/S OF DISTRESS, AROUSES EASILY TO VOICE. DENIES ANY NEEDS AT THIS TIME. BED IN LOWEST POSITION, SR X3, CALL LIGHT WITHIN REACH. WILL CONTINUE TO MONITOR.
[2019-08-06 04:00] VITALS: BP 125/65
[2019-08-06 06:37] LABS: BASOPHILS 0.2 % (0-2); EOSINOPHILS 3.2 % (0-7); HEMATOCRIT 32.3 % (36.0-48.0); IMMATURE GRANULOCYTES 0.4 % (0-5); MCH 30.9 pg (26.0-34.0); MCV 99.7 fL (80.0-100.0); MEAN PLATELET VOLUME 10.6 fL (7.4-10.4); MONOCYTES 6.2 % (2-11); PLATELET COUNT 153 10x3/uL (130-400); RBC 3.24 10x6/uL (4.00-5.40); RDW 16.4 % (11.5-14.5); WBC 10.9 10x3/uL (4.8-10.8)
[2019-08-06 07:24] LABS: ANION GAP 15.3 mmol/L (8-16); CALCIUM 8.3 mg/dL (8.5-10.1); CARBON DIOXIDE 24.4 mmol/L (21.0-32.0); CREATININE - SERUM 5.6 mg/dL (0.6-1.3); MAGNESIUM - SERUM 1.8 mg/dL (1.8-2.4); PHOSPHOROUS 5.3 mg/dL (2.5-4.9); POTASSIUM - SERUM 3.7 mmol/L (3.5-5.1)
[2019-08-06 09:08] VITALS: BP 142/76
[2019-08-06 10:09] LABS: CREATININE - URINE 76.9 mg/dL (30-125)
[2019-08-06 10:53] LABS: APPEARANCE CLEAR (CLEAR); BILIRUBIN NEGATIVE (NEGATIVE); COLOR YELLOW (YELLOW); GLUCOSE NEGATIVE (NEGATIVE); KETONE NEGATIVE (NEGATIVE); NITRITE NEGATIVE (NEGATIVE); PROTEIN 1+ mg/dL (NEGATIVE); SPECIFIC GRAVITY 1.015 (1.005-1.020); UROBILINOGEN NORMAL (NORMAL)
[2019-08-06 10:54] LABS: BACTERIA FEW /hpf (NONE SEEN); EPITHELIAL CELLS OCC /hpf (0-5); MUCUS <1+ /lpf (NONE SEEN); WHITE CELLS - URINE 0-5 /hpf (0-5)
[2019-08-06 12:08] VITALS: BP 136/79
[2019-08-06 16:05] VITALS: BP 133/73
--- NOTE | 2019-08-06 16:44 | NUR ---
Rehab Note- Acute Inpatient Rehab prescreen order received. Will follow at this time, progressing slowly with therapy. Thank you for this referral! Marisel Snow RN Clinical Liaison, [facility] Rehab
--- NOTE | 2019-08-06 17:11 | MORECARE ---
CASE MANAGEMENT DISCHARGE SUMMARY PATIENT: SOTO BTAES UNIT: [id number] ADM DATE: 08/03/19 AGE: 73 : 46 SEX: F ROOM/BED: D.210 AUTHOR: MARYSOL SAL PHYSICIAN: REFERRING PHYSICIAN: CURT WILLAMS DO DATE OF SERVICE: 08/06/19 Discharge Plan Patient Name: SOTO BATES [facility] [facility] 1945 Planned Disposition: Inpatient Rehab Anticipated Discharge Date: 08/07/19 Discharge Date: Expected LOS: 4 Initial Reviewer: [id number] Initial Review Date: 08/04/2019 Generated: 08/06/19 6:11 pm Coverage Notice Reviewer: [email or web address] Velarde Notice Issued Date-Time: 08/06/2019 9:40 Notice Type: Patient Choice Letter Notice Delivered To: Patient Relationship to Patient: [facility] Hospital Attendant Name: Delivery Method: HAND - Hand Delivered Kimberly Days: Prior Verbal Notification: Recipient Understood Notice: Yes Recipient Signature: Yes Med Rec Note Co-signed by Attending: Coverage Notice Comment: [facility] [place] IF DECLINED BY INPATIENT AT [place] Reviewer: [id number] Iwona Velarde Notice Issued Date-Time: 08/06/2019 9:40 Notice Type: IM Discharge Notice Notice Delivered To: Patient Relationship to Patient: [facility] Hospital Attendant Name: Delivery Method: HAND - Hand Delivered Kimberly Days: Prior Verbal Notification: Recipient Understood Notice: Yes Recipient Signature: Yes Med Rec Note Co-signed by Attending: Coverage Notice Comment: Patient Name: SOTO BATES Page [phone] at 1711 All edits/amendments must be made on the electronic document DICTATION DATE: 08/06/191710 REMOTE PILOT OPERATOR: KERMIT 08/06/191710 RPT#: [id number] DC DATE: STATUS: ADM IN [facility] [address] [place] [address] END OF REPORT
--- NOTE | 2019-08-06 17:21 | MORECARE ---
CASE MANAGEMENT DISCHARGE SUMMARY PATIENT: SOTO BATES UNIT: [id number] ADM DATE: 08/03/19 AGE: 73 : 46 SEX: F ROOM/BED: D.210 AUTHOR: MARYSOL SAL PHYSICIAN: REFERRING PHYSICIAN: CURT WILLAMS DO DATE OF SERVICE: 08/06/19 Discharge Plan Patient Name: SOTO BATES [facility] [facility] 1945 Planned Disposition: Inpatient Rehab Anticipated Discharge Date: 08/07/19 Discharge Date: Expected LOS: 4 Initial Reviewer: [id number] Initial Review Date: 08/04/2019 Generated: 08/06/19 6:21 pm Comments DCP- Discharge Planning Updated by [id number]: Oscar Velarde on 08/06/19 4:[address] Patient Name: SOTO BATES Admission Status: ER Accout number: [id number] Admission Date: 08-03-2019 : 1945 Admission Diagnosis: Attending: CURT WILLAMS Current LOS: 3 Anticipated DC Date: 08-07-2019 Planned Disposition: Inpatient Rehab Primary Insurance: MEDICARE A & B PLANNED EXTERNAL PROVIDER: [facility] INPATIENT REHAB Discharge Planning Comments: CM MET WITH PT IN ROOM TO DISCUSS DISCHARGE PLANNING AND NEEDS. PT REPORTS LIVING AT HOME INDEPENDENTLY WITH HER GRAND DAUGHTER. PT HAS BEDSIDE COMMODE, GLUCOMETER, NEBULIZER, ROLLING WALKER, SHOWER CHAIR AND WHEELCHAIR FROM [facility]. PT HAS OUTSIDE SERVICES ASSISTING IN THE HOME.HOME HEALTH FOR THERAPY WITH [facility]. PT REPORTS BEING TOO WEAK TO GO HOME; PT WAS INDEPENDENT PRIOR TO HER FALL BUT IS NOW VERY WEAK AND WANTS REHAB AT [place]. IF THEY DECLINE, SHE WANTS THE [facility] FOR REHAB. CHOICE SIGNED. DISCHARGE NEEDS, PT'S GRAND DAUGHTER WILL PICK PT UP FOR DISCHARGE HOME. IMPORTANT MESSAGE FROM MEDICARE PROVIDED AND EXPLAINED. CM OBTAINED ORDER FOR INPATIENT REHAB PRESCREENING, SPOKE TO ANDREY AT [facility] TEAM MEETING WHO INFORMED CM THEY WILL ACCEPT PT FOR REHAB WHEN PT IS MEDICALLY STABLE. WHEN READY FOR DISCHARGE, NOTIFY INPATIENT REHAB AT [place] WHO WILL COMPLETE SCREENING AND NOTIFY NURSING WHEN READY TO ACCEPT PT. Manager Mba: Oscar Velarde DCPIA - Discharge Planning Initial Assessment Updated by [id number]: Oscar Velarde on 08/06/19 5:13 pm * Is the patient Alert and Oriented? Yes * How many steps to enter\exit or inside your home? NONE * PCP DR. WILLAMS * Pharmacy [facility] * Preadmission Environment Home with Family * ADLs Independent * Equipment Bedside Commode Glucometer Nebulizer Rolling Walker Shower Chair Wheelchair * Other Equipment [employer] - MEDICAL EQUIPMENT PROVIDER PREFERENCE * List name and contact numbers for known caregivers / representatives who currently or will assist patient after discharge: CARY HUA, GRANDDAUGHTER, * Verbal permission to speak to the caregivers and representatives has been obtained from the patient. Yes * Community resources currently utilized Home Health * Please name any agencies selected above. [facility] * Additional services required to return to the preadmission environment? Yes * Can the patient safely return to the preadmission environment? Yes * Has this patient been hospitalized within the prior 30 days at any hospital? No Coverage Notice Reviewer: [id number] Iwona Velarde Notice Issued Date-Time: 08/06/2019 9:40 Notice Type: Patient Choice Letter Notice Delivered To: Patient Relationship to Patient: Physical Chemist Name: Delivery Method: HAND - Hand Delivered Kimberly Days: Prior Verbal Notification: Recipient Understood Notice: Yes Recipient Signature: Yes Med Rec Note Co-signed by Attending: Coverage Notice Comment: [facility] [place] IF DECLINED BY INPATIENT AT [place] Reviewer: [id number] Iwona Velarde Notice Issued Date-Time: 08/06/2019 9:40 Notice Type: IM Discharge Notice Notice Delivered To: Patient Relationship to Patient: Physical Chemist Name: Delivery Method: HAND - Hand Delivered Kimberly Days: Prior Verbal Notification: Recipient Understood Notice: Yes Recipient Signature: Yes Med Rec Note Co-signed by Attending: Coverage Notice Comment: Last DP export: 08/06/19 4:11 pm Patient Name: PAULO, NONDADEE Page [phone] at 1721 All edits/amendments must be made on the electronic document DICTATION DATE: 08/06/191720 ENTERPRISE ARCHITECT MANAGER: KERMIT 08/06/191720 RPT#: [id number] DC DATE: STATUS: ADM IN [place] [id number] [place] [address] END OF REPORT
[2019-08-06 20:00] VITALS: BP 139/73
--- NOTE | 2019-08-06 20:00 | NUR ---
ALERT RESTING IN BED, NO APPARENT DISTRESS, DENIES PAIN OR NEEDS, SEE SHIFT ASSESSMENT, CALL LIGHT IN REACH
[2019-08-07] VITALS: BP 153/78
[2019-08-07 04:00] VITALS: BP 134/79
[2019-08-07 05:43] LABS: BASOPHILS 0.2 % (0-2); EOSINOPHILS 4.2 % (0-7); HEMATOCRIT 31.7 % (36.0-48.0); HEMOGLOBIN 9.8 g/dL (12-16); IMMATURE GRANULOCYTES 0.2 % (0-5); LYMPHOCYTES 6.6 % (15-50); MCHC 30.9 g/dL (31.0-37.0); MCV 100.3 fL (80.0-100.0); MEAN PLATELET VOLUME 10.6 fL (7.4-10.4); MONOCYTES 6.8 % (2-11); PLATELET COUNT 157 10x3/uL (130-400); RBC 3.16 10x6/uL (4.00-5.40); RDW 16.2 % (11.5-14.5); WBC 8.3 10x3/uL (4.8-10.8)
[2019-08-07 05:59] LABS: ANION GAP 15.2 mmol/L (8-16); CALCIUM 7.8 mg/dL (8.5-10.1); CARBON DIOXIDE 25.4 mmol/L (21.0-32.0); CREATININE - SERUM 5.5 mg/dL (0.6-1.3); MAGNESIUM - SERUM 1.8 mg/dL (1.8-2.4); POTASSIUM - SERUM 3.6 mmol/L (3.5-5.1)
--- NOTE | 2019-08-07 07:30 | NUR ---
A/A/OX4. DENIES ANY PAIN OR DISCOMFORT AND NO REQUESTS VOICED. ASSESSMENT COMPLETED AND WILL CONTINUE POC.
[2019-08-07 08:37] VITALS: BP 151/83
--- NOTE | 2019-08-07 10:54 | NUR ---
IV LEAKING AT SITE. REMOVED AND RESTARTED IN RIGHT LOWER FOREARM WITH 20G X ATTEMPT. PT TOLERATED WELL. IS SITTING UP IN BEDSIDE CHAIR WITH NO COMPLAINTS OR REQUESTS.
--- NOTE | 2019-08-07 11:41 | NUR ---
AFUA AHUJA'D WITH 850 CC LIGHT MARGARITA URINE IN BAG
[2019-08-07 12:25] VITALS: BP 156/82
--- NOTE | 2019-08-07 12:50 | NUR ---
Nutrition Follow-up: Pt reports increase in appetite/PO intake. Experiencing dry mouth. Reports last BM was 08/03; passing flatus. Noted plans to start dialysis. Diet: Renal ADA PO intake: 75% avg x 6 meals Wt: 240# Labs noted: K+ 3.6, PO4 6.0, Ca 7.8, Glu 124 Meds noted: Phoslo, Humalog, Lasix Continue current diet as tolerated. [place] food preferences within diet restrictions. MD may consider stool softener 2/[address] following.
--- NOTE | 2019-08-07 13:24 | NUR ---
I have reviewed this patient and I concur with the Shift Assessment completed by the Licensed Practical Nurse today this shift.
--- NOTE | 2019-08-07 14:05 | MORECARE ---
CASE MANAGEMENT DISCHARGE SUMMARY PATIENT: SOTO BATES UNIT: [id number] ADM DATE: 08/03/19 AGE: 73 : 46 SEX: F ROOM/BED: D.2103 AUTHOR: MARYSOL SAL PHYSICIAN: REFERRING PHYSICIAN: CURT WILLAMS DO DATE OF SERVICE: 08/07/19 Discharge Plan Patient Name: SOTO BATES [facility] [facility] 1945 Planned Disposition: Inpatient Rehab Anticipated Discharge Date: 08/08/19 Discharge Date: Expected LOS: 5 Initial Reviewer: [id number] Initial Review Date: 08/04/2019 Generated: 08/07/19 3:05 pm Comments DCP- Discharge Planning Updated by [email or web address]: Oscar Velarde on 08/06/19 4:[address] Patient Name: SOTO BATES Admission Status: ER Accout number: [id number] Admission Date: 08-03-2019 : 1945 Admission Diagnosis: Attending: CURT WILLAMS Current LOS: 3 Anticipated DC Date: 08-07-2019 Planned Disposition: Inpatient Rehab Primary Insurance: MEDICARE A & B PLANNED EXTERNAL PROVIDER: [facility] IN[facility] REH[facility] Discharge Planning Comments: CM MET WITH PT IN ROOM TO DISCUSS DISCHARGE PLANNING AND NEEDS. PT REPORTS LIVING AT HOME INDEPENDENTLY WITH HER GRAND DAUGHTER. PT HAS BEDSIDE COMMODE, GLUCOMETER, NEBULIZER, ROLLING WALKER, SHOWER CHAIR AND WHEELCHAIR FROM [facility]. PT HAS OUTSIDE SERVICES ASSISTING IN THE HOME.HOME HEALTH FOR THERAPY WITH [facility]. PT REPORTS BEING TOO WEAK TO GO HOME; PT WAS INDEPENDENT PRIOR TO HER FALL BUT IS NOW VERY WEAK AND WANTS REHAB AT [place]. IF THEY DECLINE, SHE WANTS THE [facility] FOR REHAB. CHOICE SIGNED. DISCHARGE NEEDS, PT'S GRAND DAUGHTER WILL PICK PT UP FOR DISCHARGE HOME. IMPORTANT MESSAGE FROM MEDICARE PROVIDED AND EXPLAINED. CM OBTAINED ORDER FOR INPATIENT REHAB PRESCREENING, SPOKE TO ANDREY AT [facility] TEAM MEETING WHO INFORMED CM THEY WILL ACCEPT PT FOR REHAB WHEN PT IS MEDICALLY STABLE. WHEN READY FOR DISCHARGE, NOTIFY INPATIENT REHAB AT [place] WHO WILL COMPLETE SCREENING AND NOTIFY NURSING WHEN READY TO ACCEPT PT. Network Support Analyst: Oscar Velarde DCPIA - Discharge Planning Initial Assessment Updated by [id number]: Oscar Velarde on 08/06/19 5:13 pm * Is the patient Alert and Oriented? Yes * How many steps to enter\exit or inside your home? NONE * PCP DR. WILLAMS * Pharmacy [facility] * Preadmission Environment Home with Family * ADLs Independent * Equipment Bedside Commode Glucometer Nebulizer Rolling Walker Shower Chair Wheelchair * Other Equipment [employer] - MEDICAL EQUIPMENT PROVIDER PREFERENCE * List name and contact numbers for known caregivers / representatives who currently or will assist patient after discharge: CARY HUA, GRANDDAUGHTER, * Verbal permission to speak to the caregivers and representatives has been obtained from the patient. Yes * Community resources currently utilized Home Health * Please name any agencies selected above. [facility] * Additional services required to return to the preadmission environment? Yes * Can the patient safely return to the preadmission environment? Yes * Has this patient been hospitalized within the prior 30 days at any hospital? No Coverage Notice Reviewer: [id number] Iwona Velarde Notice Issued Date-Time: 08/06/2019 9:40 Notice Type: Patient Choice Letter Notice Delivered To: Patient Relationship to Patient: Hand Screen Printer Name: Delivery Method: HAND - Hand Delivered Kimberly Days: Prior Verbal Notification: Recipient Understood Notice: Yes Recipient Signature: Yes Med Rec Note Co-signed by Attending: Coverage Notice Comment: THE [place] IF DECLINED BY INPATIENT AT [place] Reviewer: [id number] Iwona Velarde Notice Issued Date-Time: 08/06/2019 9:40 Notice Type: IM Discharge Notice Notice Delivered To: Patient Relationship to Patient: Hand Screen Printer Name: Delivery Method: HAND - Hand Delivered Kimberly Days: Prior Verbal Notification: Recipient Understood Notice: Yes Recipient Signature: Yes Med Rec Note Co-signed by Attending: Coverage Notice Comment: Last DP export: 08/06/19 4:21 pm Patient Name: PAULO, NONDADEE Page [phone] at 1405 All edits/amendments must be made on the electronic document DICTATION DATE: 08/07/19 1405 KITCHENWHERE MAKER: KERMIT 08/07/19 1405 RPT#: [id number] DC DATE: STATUS: ADM IN [place] [id number] [place] [address] END OF REPORT
--- NOTE | 2019-08-07 14:14 | MORECARE ---
CASE MANAGEMENT DISCHARGE SUMMARY PATIENT: SOTO BATES UNIT: [id number] ADM DATE: 08/03/19 AGE: 73 : 46 SEX: F ROOM/BED: D.2100 AUTHOR: MARYSOL SAL PHYSICIAN: REFERRING PHYSICIAN: CURT WILLAMS DO DATE OF SERVICE: 08/07/19 Discharge Plan Patient Name: PATRIC BATESADEE Facility: [facility]:[place] : 1945 Planned Disposition: Inpatient Rehab Anticipated Discharge Date: 08/08/19 Discharge Date: Expected LOS: 5 Initial Reviewer: [id number] Initial Review Date: 08/04/2019 Generated: 08/07/19 3:13 pm Comments DCP- Discharge Planning Updated by [id number]: Oscar Velarde on 08/07/19 1:[address] Patient Name: NONDADEJose BATES Encounter No: [id number] : 1945 Primary Insurance: MEDICARE A & B Anticipated DC Date: 08-08-2019 Planned Disposition: Inpatient Rehab External Planned Provider: [facility] INPATIENT REHAB DCP follow-up note: CM SPOKE TO BA OF INPATIENT REHAB, THEY WILL ACCEPT TODAY AND OUTPATIENT DIALYSIS CAN BE ARRANGED WHILE PT IS IN THE REHAB. CM NOTIFIED PT WHO IS IN AGREEMENT WITH DISCHARGE TO INPATIENT REHAB.. CM NOTIFIED ALAN CHAVIRA WHO ASKED IF RENAL WAS OK WITH DISCHARGE. CM SPOKE TO BA DOMINGUEZ RENAL PREPARATION DEPARTMENT SUPERVISOR, REVIEWED DOCTORS CHART NOTE FROM THIS MORNING, BA INFORMED CM THAT PT CAN DISCHARGE TO INPATIENT REHAB TODAY AND REHAB TO CONSULT RENAL. CM NOTIFIED ALAN CHAVIRA. WHEN READY FOR DISCHARGE, NOTIFY INPATIENT REHAB AT [place] WHO WILL COMPLETE SCREENING AND NOTIFY NURSING WHEN READY TO ACCEPT PT. Window Caser: Oscar Velarde DCP- Discharge Planning Updated by [id number]: Oscar Velarde on 08/06/19 4:[address] Patient Name: SOTO BATES Admission Status: ER Accout number: [id number] Admission Date: 08-03-2019 : 1945 Admission Diagnosis: Attending: CURT WILLAMS Current LOS: 3 Anticipated DC Date: 08-07-2019 Planned Disposition: Inpatient Rehab Primary Insurance: MEDICARE A & B PLANNED EXTERNAL PROVIDER: [facility] INPATIENT REHAB Discharge Planning Comments: CM MET WITH PT IN ROOM TO DISCUSS DISCHARGE PLANNING AND NEEDS. PT REPORTS LIVING AT HOME INDEPENDENTLY WITH HER GRAND DAUGHTER. PT HAS BEDSIDE COMMODE, GLUCOMETER, NEBULIZER, ROLLING WALKER, SHOWER CHAIR AND WHEELCHAIR FROM [employer]. PT HAS OUTSIDE SERVICES ASSISTING IN THE HOME.HOME HEALTH FOR THERAPY WITH [facility]. PT REPORTS BEING TOO WEAK TO GO HOME; PT WAS INDEPENDENT PRIOR TO HER FALL BUT IS NOW VERY WEAK AND WANTS REHAB AT [place]. IF THEY DECLINE, SHE WANTS THE [facility] FOR REHAB. CHOICE SIGNED. DISCHARGE NEEDS, PT'S GRAND DAUGHTER WILL PICK PT UP FOR DISCHARGE HOME. IMPORTANT MESSAGE FROM MEDICARE PROVIDED AND EXPLAINED. CM OBTAINED ORDER FOR INPATIENT REHAB PRESCREENING, SPOKE TO ANDREY AT [facility] TEAM MEETING WHO INFORMED CM THEY WILL ACCEPT PT FOR REHAB WHEN PT IS MEDICALLY STABLE. WHEN READY FOR DISCHARGE, NOTIFY INPATIENT REHAB AT [place] WHO WILL COMPLETE SCREENING AND NOTIFY NURSING WHEN READY TO ACCEPT PT. Window Caser: Oscar Velarde DCPIA - Discharge Planning Initial Assessment Updated by [id number]: Oscar Velarde on 08/06/19 5:13 pm * Is the patient Alert and Oriented? Yes * How many steps to enter\exit or inside your home? NONE * PCP DR. WILLAMS * Pharmacy [facility] * Preadmission Environment Home with Family * ADLs Independent * Equipment Bedside Commode Glucometer Nebulizer Rolling Walker Shower Chair Wheelchair * Other Equipment [employer] - MEDICAL EQUIPMENT PROVIDER PREFERENCE * List name and contact numbers for known caregivers / representatives who currently or will assist patient after discharge: CARY HUA, GRANDDAUGHTER, * Verbal permission to speak to the caregivers and representatives has been obtained from the patient. Yes * Community resources currently utilized Home Health * Please name any agencies selected above. [facility] * Additional services required to return to the preadmission environment? Yes * Can the patient safely return to the preadmission environment? Yes * Has this patient been hospitalized within the prior 30 days at any hospital? No Coverage Notice Reviewer: [id number] - Oscar Velarde Notice Issued Date-Time: 08/06/2019 9:40 Notice Type: Patient Choice Letter Notice Delivered To: Patient Relationship to Patient: Rural Carrier Name: Delivery Method: HAND - Hand Delivered Kimberly Days: Prior Verbal Notification: Recipient Understood Notice: Yes Recipient Signature: Yes Med Rec Note Co-signed by Attending: Coverage Notice Comment: [facility] [place] [facility] [place] Reviewer: [id number] Iwona Velarde Notice Issued Date-Time: 08/06/2019 9:40 Notice Type: IM Discharge Notice Notice Delivered To: Patient Relationship to Patient: Rural Carrier Name: Delivery Method: HAND - Hand Delivered Kimberly Days: Prior Verbal Notification: Recipient Understood Notice: Yes Recipient Signature: Yes Med Rec Note Co-signed by Attending: Coverage Notice Comment: Last DP export: 08/07/19 1:05 pm Patient Name: SUIT, NONDADEE Page [phone] at 1414 All edits/amendments must be made on the electronic document DICTATION DATE: 08/07/19 1413 INTRANET SUPPORT: KERMIT 08/07/19 1413 RPT#: [id number] DC DATE: STATUS: ADM IN [facility] [address] [place] [address] END OF REPORT
[2019-08-07] MEDS ORDERED: ACETAMINOPHEN500 M1 PO (14:28)
[2019-08-07] MEDS ORDERED: LASIX40 MG PO (14:29)
[2019-08-07] MEDS ORDERED: LEVOTHYROXINE75 MCG PO (14:29)
[2019-08-07] MEDS ORDERED: ZYLOPRIM100 MG PO (14:30)
[2019-08-07 15:24] VITALS: BP 148/81
--- NOTE | 2019-08-07 15:55 | NUR ---
OT NOTE: PT REQUIRED MOD A FOR SUPINE TO SIT. PT COMPLETED ADL MOB WITH MOD AND R/W. PT COMPLETED BUE AROM AXS FOR INCREASED I WITH R/W MANAGEMENT. PT COMPLETED FACE WASH WITH SETUP. PT STATED SHE STARTS DIALYSIS TOMORROW. THANK YOU, ARIES GARDNER
--- NOTE | 2019-08-07 16:09 | NUR ---
OT NOTE: PT DOING BETTER TODAY. BED MOB WITH EXT TIME AND MIN ASSIST. UE AROM EXS WITH FREQ REST BREAKS. IN ROOM AMB WITH USE OF RW AND MIN ASSIST ( APPROX 10 FT) . SIMPLE GROOMING TASKS WITH SET UP AND REST BREAKS. BRAYDEN ESTRADA, OTR/L
--- NOTE | 2019-08-07 16:13 | NUR ---
DISCHARGE INSTRUCTIONS REVIEWED WITH PT AND VERBALIZES UNDERSTANDING. REHAB CALLED AND REPORT GIVEN TO JOSE. PT DISCHARGED TO REHAB UNIT TRANSPORTED VIA W/C WITH ALL PERSONAL BELONGINGS. SL REMOVED WITHOUT DIFFICULTY.
[2019-08-08 09:09] LABS: HEPATITIS C ANTIBODY <0.1 (0.0-0.9)
--- NOTE | 2019-08-10 07:24 | MORECARE ---
CASE MANAGEMENT DISCHARGE SUMMARY PATIENT: SOTO BATES UNIT: [id number] ADM DATE: 08/03/19 AGE: 73 : 46 SEX: F ROOM/BED: D.2101 AUTHOR: MARYSOL SAL PHYSICIAN: REFERRING PHYSICIAN: CURT WILLAMS DO DATE OF SERVICE: 08/10/19 Discharge Plan Patient Name: PAULO, NONDADEE Facility: [facility]:[place] : 1945 Planned Disposition: Inpatient Rehab Anticipated Discharge Date: 08/07/19 Discharge Date: 08/07/2019 Expected LOS: 4 Initial Reviewer: LICHA Initial Review Date: 08/04/2019 Generated: 08/10/19 8:24 am Comments DCP- Discharge Planning Updated by [id number]: Oscar Velarde on 08/07/19 1:[address] Patient Name: NONDADEE D MICHAELIT Encounter No: [id number] : 1945 Primary Insurance: MEDICARE A & B Anticipated DC Date: 08-08-2019 Planned Disposition: Inpatient Rehab External Planned Provider: [facility] INPATIENT REHAB DCP follow-up note: CM SPOKE TO BA OF INPATIENT REHAB, THEY WILL ACCEPT TODAY AND OUTPATIENT DIALYSIS CAN BE ARRANGED WHILE PT IS IN THE REHAB. CM NOTIFIED PT WHO IS IN AGREEMENT WITH DISCHARGE TO INPATIENT REHAB.. CM NOTIFIED ALAN CHAVIRA WHO ASKED IF RENAL WAS OK WITH DISCHARGE. CM SPOKE TO BA DOMINGUEZ RENAL BLOOD SPLATTER ANALYST, REVIEWED DOCTORS CHART NOTE FROM THIS MORNING, BA INFORMED CM THAT PT CAN DISCHARGE TO INPATIENT REHAB TODAY AND REHAB TO CONSULT RENAL. CM NOTIFIED ALAN CHAVIRA. WHEN READY FOR DISCHARGE, NOTIFY INPATIENT REHAB AT [facility] WHO WILL COMPLETE SCREENING AND NOTIFY NURSING WHEN READY TO ACCEPT PT. Primer Inserting Machine Adjuster: Oscar Velarde DCP- Discharge Planning Updated by [id number]: Oscar Velarde on 08/06/19 4:[address] Patient Name: NONDJEMMA Tellez SUIT Admission Status: ER Accout number: [id number] Admission Date: 08-03-2019 : 1945 Admission Diagnosis: Attending: CURT WILLAMS Current LOS: 3 Anticipated DC Date: 08-07-2019 Planned Disposition: Inpatient Rehab Primary Insurance: MEDICARE A & B PLANNED EXTERNAL PROVIDER: [facility] INPATIENT REHAB Discharge Planning Comments: CM MET WITH PT IN ROOM TO DISCUSS DISCHARGE PLANNING AND NEEDS. PT REPORTS LIVING AT HOME INDEPENDENTLY WITH HER GRAND DAUGHTER. PT HAS BEDSIDE COMMODE, GLUCOMETER, NEBULIZER, ROLLING WALKER, SHOWER CHAIR AND WHEELCHAIR FROM [employer]. PT HAS OUTSIDE SERVICES ASSISTING IN THE HOME.HOME HEALTH FOR THERAPY WITH [facility]. PT REPORTS BEING TOO WEAK TO GO HOME; PT WAS INDEPENDENT PRIOR TO HER FALL BUT IS NOW VERY WEAK AND WANTS REHAB AT [facility]. IF THEY DECLINE, SHE WANTS THE [facility] FOR REHAB. CHOICE SIGNED. DISCHARGE NEEDS, PT'S GRAND DAUGHTER WILL PICK PT UP FOR DISCHARGE HOME. IMPORTANT MESSAGE FROM MEDICARE PROVIDED AND EXPLAINED. CM OBTAINED ORDER FOR INPATIENT REHAB PRESCREENING, SPOKE TO ANDREY AT [facility] WHO INFORMED CM THEY WILL ACCEPT PT FOR REHAB WHEN PT IS MEDICALLY STABLE. WHEN READY FOR DISCHARGE, NOTIFY INPATIENT REHAB AT [facility] WHO WILL COMPLETE SCREENING AND NOTIFY NURSING WHEN READY TO ACCEPT PT. Primer Inserting Machine Adjuster: Oscar Velarde DCPIA - Discharge Planning Initial Assessment Updated by [id number]: Oscar Velarde on 08/06/19 5:13 pm * Is the patient Alert and Oriented? Yes * How many steps to enter\exit or inside your home? NONE * PCP DR. WILLAMS * Pharmacy [facility] * Preadmission Environment Home with Family * ADLs Independent * Equipment Bedside Commode Glucometer Nebulizer Rolling Walker Shower Chair Wheelchair * Other Equipment [employer] - MEDICAL EQUIPMENT PROVIDER PREFERENCE * List name and contact numbers for known caregivers / representatives who currently or will assist patient after discharge: CARY HUA, GRANDDAUGHTER, * Verbal permission to speak to the caregivers and representatives has been obtained from the patient. Yes * Community resources currently utilized Home Health * Please name any agencies selected above. [facility] * Additional services required to return to the preadmission environment? Yes * Can the patient safely return to the preadmission environment? Yes * Has this patient been hospitalized within the prior 30 days at any hospital? No Coverage Notice Reviewer: [id number] - Oscar Velarde Notice Issued Date-Time: 08/06/2019 9:40 Notice Type: Patient Choice Letter Notice Delivered To: Patient Relationship to Patient: Career Advisor Name: Delivery Method: HAND - Hand Delivered Kimberly Days: Prior Verbal Notification: Recipient Understood Notice: Yes Recipient Signature: Yes Med Rec Note Co-signed by Attending: Coverage Notice Comment: THE EDDIE IF DECLINED BY INPATIENT AT [facility] Reviewer: [id number] Iwona Velarde Notice Issued Date-Time: 08/06/2019 9:40 Notice Type: IM Discharge Notice Notice Delivered To: Patient Relationship to Patient: Career Advisor Name: Delivery Method: HAND - Hand Delivered Kimberly Days: Prior Verbal Notification: Recipient Understood Notice: Yes Recipient Signature: Yes Med Rec Note Co-signed by Attending: Coverage Notice Comment: Last DP export: 08/07/19 1:14 pm Patient Name: PAULO, NONDADEE Page [phone] at 0724 All edits/amendments must be made on the electronic document DICTATION DATE: 08/10/19723 VALUATION CONSULTANT: KERMIT 08/10/19723 RPT#: [id number] DC DATE:08/07/19 STATUS: DIS IN [facility] [address] [place] [address] END OF REPORT
== END 2019-08-07 16:18 | DRG 640 ==
LOC: D.ER 21:33 → D.M2 22:56
PROVIDERS: Emergency Medicine; Family Medicine; Internal Medicine Nephrology; ADMIT Family Medicine; ATTEND Family Medicine
DX: E86.0 Dehydration (principal); N18.6 End stage renal disease; N17.9 Acute kidney failure, unspecified; D47.9 Neoplasm of uncertain behavior of lymphoid, hematopoietic and related tissue, unspecified; I13.2 Hypertensive heart and chronic kidney disease with heart failure and with stage 5 chronic kidney disease, or end stage renal disease; E11.22 Type 2 diabetes mellitus with diabetic chronic kidney disease; E11.65 Type 2 diabetes mellitus with hyperglycemia; I50.9 Heart failure, unspecified; E03.9 Hypothyroidism, unspecified; W19.XXXA Unspecified fall, initial encounter; F41.9 Anxiety disorder, unspecified; F32.9 Major depressive disorder, single episode, unspecified; I48.91 Unspecified atrial fibrillation; E78.5 Hyperlipidemia, unspecified; D63.1 Anemia in chronic kidney disease; E87.6 Hypokalemia; S99.921A Unspecified injury of right foot, initial encounter; S89.91XA Unspecified injury of right lower leg, initial encounter; S79.911A Unspecified injury of right hip, initial encounter

== ENCOUNTER 2019-08-07 15:38 | Inpatient (IN) | payer MEDICARE, OTHER ==
[~2019-08-07] VITALS: Ht 175.3 cm; Wt 105.7 kg
[~2019-08-07 15:38] MED LIST changes: +ACETAMINOPHEN500 M1 PO; +COREG6.25 MG PO; +FERRIC CITRATE210 MG PO; +GABAPENTIN100 MG PO; +GLIPIZIDE10 MG PO; +GUAIFENESI100 MG/5 M PO; +K-TAB10 MEQ PO; +LEVOTHYROXINE75 MCG PO; +METOLAZONE5 MG PO; +NIZORAL 2 % SH120 ML TOPICAL; +ZYLOPRIM100 MG PO
--- NOTE | 2019-08-07 19:30 | NUR ---
COMPLETED DIALYSIS AND WAS ASSISTED BACK TO ROOM. AWAKE AND ALERT. SITTING IN WHEELCHAIR EATING IN SUPPER. LEFT ARM FISTULA DRESSING DRY AND INTACT. ASSISTED TO BATHROOM AND VOIDED WITHOUT DIFFICULTY. NO ACUTE DISTRESS NOTED. CALL LIGHT IN REACH.
[2019-08-07 19:50] VITALS: BP 152/94; BMI 32.8
[2019-08-08 01:06] VITALS: BP 174/94
--- NOTE | 2019-08-08 02:17 | NUR ---
RESTING IN BED WITH EYES CLOSED AND RESPIRATIONS UNLABORED. NO DISTRESS NOTED. CALL LIGHT IN REACH.
--- NOTE | 2019-08-08 05:20 | NUR ---
RESTING IN BED. HAS VOIDED 5 TIMES THIS SHIFT. SHE STATES SHE DOESNT KNOW WHY SHE IS VOIDING SO MUCH. NOW BACK IN BED WITH NO DISTRTESS NOTED. CALL LIGHT IN REACH.
[2019-08-08 05:46] VITALS: BP 135/58
[2019-08-08 06:58] LABS: BASOPHILS 0.6 % (0-2); EOSINOPHILS 4.1 % (0-7); HEMATOCRIT 32.1 % (36.0-48.0); HEMOGLOBIN 10.1 g/dL (12-16); IMMATURE GRANULOCYTES 0.4 % (0-5); LYMPHOCYTES 6.5 % (15-50); MCH 30.7 pg (26.0-34.0); MCHC 31.5 g/dL (31.0-37.0); MEAN PLATELET VOLUME 10.4 fL (7.4-10.4); MONOCYTES 7.8 % (2-11); NEUTROPHILS 80.6 % (40-80); PLATELET COUNT 147 10x3/uL (130-400); RBC 3.29 10x6/uL (4.00-5.40); RDW 15.8 % (11.5-14.5)
[2019-08-08 07:07] LABS: MCV 97.6 fL (80.0-100.0)
[2019-08-08 07:18] LABS: ANION GAP 15.4 mmol/L (8-16); CALCIUM 8.5 mg/dL (8.5-10.1); CARBON DIOXIDE 25.9 mmol/L (21.0-32.0); CREATININE - SERUM 5.1 mg/dL (0.6-1.3); POTASSIUM - SERUM 3.3 mmol/L (3.5-5.1)
--- NOTE | 2019-08-08 08:00 | NUR ---
SHIFT ASSMT COMPLETED.DENIES NEEDS.BREAKFAST GIVEN.CL IN REACH.
[2019-08-08 12:00] VITALS: BP 120/69
--- NOTE | 2019-08-08 12:00 | NUR ---
SITTING UP IN WC EATING LUNCH,VISITING WITH FAMILY
[2019-08-08 12:03] VITALS: Ht 175.3 cm; Wt 105.7 kg
[2019-08-08 18:00] VITALS: BP 156/77
[2019-08-08 18:40] LABS: APPEARANCE CLEAR (CLEAR); BILIRUBIN NEGATIVE (NEGATIVE); COLOR STRAW (YELLOW); GLUCOSE NEGATIVE (NEGATIVE); KETONE NEGATIVE (NEGATIVE); NITRITE NEGATIVE (NEGATIVE); PROTEIN NEGATIVE (NEGATIVE); SPECIFIC GRAVITY 1.015 (1.005-1.020); UROBILINOGEN NORMAL (NORMAL)
--- NOTE | 2019-08-08 19:25 | NUR ---
AWAKE AND ALERT. RESTING IN BED WITH RESPIRATIONS UNLABORED. LEFT ARM FISTULA INTACT. NOTED YEAST AND REDNESS UNDER ABDOMINAL FOLDS AND UNDER BREAST. HAS NYSTATIN ORDERED FOR THIS. NO ACUTE DISTRESS NOTED. CALL LIGHT IN REACH.
[2019-08-08 23:06] VITALS: BP 109/60
--- NOTE | 2019-08-09 01:15 | NUR ---
RESTING IN BED WITH RESPIRATIONS UNLABORED. NO DISTRESS NOTED. CALL LIGHT IN REACH.
[2019-08-09 05:47] VITALS: BP 118/68
--- NOTE | 2019-08-09 06:22 | NUR ---
AWAKE AND ALERT. RESTING IN BED WITH NO ACUTE DISTRESS NOTED. SLEPT IN SHORT INTERVALS TONGIHT. UP FREQUENTLY TO VOID.
--- NOTE | 2019-08-09 08:00 | NUR ---
SHIFT ASSMT COMPLETED.BREAKFAST GIVEN.
[2019-08-09 12:00] VITALS: BP 139/65
--- NOTE | 2019-08-09 12:00 | NUR ---
SITTING UP IN CHAIR EATING LUNCH.CL IN REACH.
--- NOTE | 2019-08-09 16:00 | NUR ---
UP IN CHAIR.DENIES NEEDS.
[2019-08-09 18:00] VITALS: BP 152/71
--- NOTE | 2019-08-09 19:11 | NUR ---
AWAKE AND ALERT. SITTING IN CHAIR BESIDE BED. SOME SHORTNESS OF BREATH NOTED WITH EXERTION. WHEEZES NOTED IN LEFT LUNG HERNÁNDEZ. CHEST X RAY OFRDERED FOR AM. PATIENT STATES SHE IS STILL "SHAKY LIKE RESTLESS LEG SYNDROME WHEN GETTING UP" MESSAGE LEFT FOR DR TIPTON ON ROUNDING SHEET. LEFT ARM FISTULA INTACT. CHEERFUL AND PLEASANT.
[2019-08-09 23:43] VITALS: BP 172/88
--- NOTE | 2019-08-10 00:52 | NUR ---
AWAKE AND SITTING ON SIDE OF BED PLAYING A GAME ON HER PHONE. STATES SHE CANT SLEEP. NO NEEDS VOICED.
--- NOTE | 2019-08-10 03:04 | NUR ---
RESTING IN BED WITH RESPIRATIONS UNLABORED. ONLY SLEPT IN SHORT INTERVALS TONIGHT. LYING DOWN IN BED AFTER GOING TO BATHROOM. CALL LIGHT IN REACH.
--- NOTE | 2019-08-10 05:12 | NUR ---
X RAY HERE FOR CXR. TOLERATED WELL. NOTED SLIGHT NON-PRODUCTIVE COUGH THIS AM. RESPIRATIONS UNLABORED. O2 SATURATION 93 ON ROOM AIR. RESTING IN BED WITH HEAD OF BED ELEVATED.
[2019-08-10 05:13] VITALS: BP 160/83
[2019-08-10 06:38] LABS: BASOPHILS 0.4 % (0-2); EOSINOPHILS 4.2 % (0-7); HEMATOCRIT 31.3 % (36.0-48.0); HEMOGLOBIN 9.8 g/dL (12-16); LYMPHOCYTES 6.3 % (15-50); MCH 30.9 pg (26.0-34.0); MCHC 31.3 g/dL (31.0-37.0); MCV 98.7 fL (80.0-100.0); MEAN PLATELET VOLUME 10.7 fL (7.4-10.4); MONOCYTES 7.8 % (2-11); NEUTROPHILS 80.3 % (40-80); PLATELET COUNT 154 10x3/uL (130-400); RBC 3.17 10x6/uL (4.00-5.40); RDW 15.9 % (11.5-14.5); WBC 9.4 10x3/uL (4.8-10.8)
[2019-08-10 06:58] LABS: CALCIUM 7.9 mg/dL (8.5-10.1); CARBON DIOXIDE 28.5 mmol/L (21.0-32.0); CREATININE - SERUM 4.7 mg/dL (0.6-1.3); POTASSIUM - SERUM 3.5 mmol/L (3.5-5.1)
--- NOTE | 2019-08-10 08:10 | NUR ---
NOTIFIED DIALYSIS THAT PHYSICIAN REQUEST THAT PATIENT HAVE DIALYSIS EARLY THIS AM, NURSE STATED THAT SHE HAS TWO EMERGENCY POTASSIUMS TO SEE FIRST THEN WILL LUCIO FOR JUAN.
--- NOTE | 2019-08-10 08:25 | NUR ---
DR SOTO GAVE INSTRUCTIONS FOR PT TO BE DIALYZED THIS AM. DIALYSIS STAFF NOTIFIED (JULIET) AND SHE SAID THEY HAD 2 EMERGENCIES AND WOULD GET TO HER SOON A POSSIBLE.
--- NOTE | 2019-08-10 10:25 | NUR ---
PATIENT UP WITH THERAPY, NO NEEDS VOICED, WILL HAVE DIALYSIS THIS AM
[2019-08-10 11:56] VITALS: BP 145/66
--- NOTE | 2019-08-10 14:23 | NUR ---
PATIENT ADMITTED TO REHAB FROM ACUTE FLOOR. DR. WILLAMS IS HER PCP. SHE HAS ALL DME NEEDED AT THIS TIME AT HOME. SHE IS A CLIENT OF [facility]. DISCHARGE PLANS ARE FOR HER TO RETURN HOME. WILL CONTINUE TO FOLLOW WITH PATIENT.
--- NOTE | 2019-08-10 14:50 | NUR ---
NOTIFIED DIALYSIS OF TIME THAT PATIENT WILL BE SEEN, NURSE STATED THAT SHE WILL CALL AFTER FINISHED WITH EMERGENCY DIALYSIS
--- NOTE | 2019-08-10 18:20 | NUR ---
NOTIFIED DIALYSIS WITH A TIME THAT PATIENT WILL BE TAKEN. NURSE STATED "I DONT HAVE AN APPROXIMATE TIME IM JUST GOING DOWN MY LIST"
--- NOTE | 2019-08-10 18:55 | NUR ---
BEDSIDE REPORT COMPLETE. SITTING UP IN W/C VISITING WITH FAMILY. LEFT FOREARM FISTULA THRILL AND BRUIT NOTED. DENIES ANY NEEDS OR PAIN. CALL LIGHT WITHIN REACH, FALL PRECAUTIONS IN PLACE. WILL CONTINUE TO MONTITOR
[2019-08-10 20:53] VITALS: BP 152/76
--- NOTE | 2019-08-10 22:00 | NUR ---
TRANSPORTED BY TUBING MACHINE TENDER TO DIALYSIS VIA W/C
[2019-08-11 00:08] VITALS: BP 156/90
--- NOTE | 2019-08-11 01:05 | NUR ---
TRANSPORTED PT FROM DIALYSIS VIA W/C. BODY TREMORS NOTED. VS STABLE. 3L REMOVED PER ANJU CRAMER.
--- NOTE | 2019-08-11 02:34 | NUR ---
LYING IN BED EYES CLOSED RESTING QUIETLY.
--- NOTE | 2019-08-11 05:35 | NUR ---
SITTING UP ON SIDE OF BED VISITING WITH ROOM MATE. NO SIGNS OF DISTRESS NOTED.
[2019-08-11 06:30] VITALS: BP 154/85
[2019-08-11 07:12] LABS: BASOPHILS 0.2 % (0-2); EOSINOPHILS 3.8 % (0-7); HEMATOCRIT 32.2 % (36.0-48.0); HEMOGLOBIN 10.1 g/dL (12-16); IMMATURE GRANULOCYTES 1.5 % (0-5); LYMPHOCYTES 6.9 % (15-50); MCH 30.8 pg (26.0-34.0); MCHC 31.4 g/dL (31.0-37.0); MCV 98.2 fL (80.0-100.0); MEAN PLATELET VOLUME 11.3 fL (7.4-10.4); MONOCYTES 7.7 % (2-11); NEUTROPHILS 79.9 % (40-80); PLATELET COUNT 179 10x3/uL (130-400); RBC 3.28 10x6/uL (4.00-5.40); RDW 16.1 % (11.5-14.5); WBC 9.9 10x3/uL (4.8-10.8)
[2019-08-11 07:46] LABS: ANION GAP 12.6 mmol/L (8-16); CALCIUM 8.1 mg/dL (8.5-10.1); CARBON DIOXIDE 30.6 mmol/L (21.0-32.0); CREATININE - SERUM 3.6 mg/dL (0.6-1.3); PHOSPHOROUS 3.3 mg/dL (2.5-4.9); POTASSIUM - SERUM 3.2 mmol/L (3.5-5.1)
--- NOTE | 2019-08-11 07:50 | NUR ---
AWAKE AND ALERT. BREAKFAST SERVED. NO DISTRESS NOTED. CL IN REACH. SITTING IN WC.
[2019-08-11 11:56] VITALS: BP 124/67
--- NOTE | 2019-08-11 12:53 | NUR ---
NO CHANGE IN ASSESSMENT. SITTING IN WC FOR LUNCH.
--- NOTE | 2019-08-11 13:11 | NUR ---
Nutrition Follow-up: Noted stage II PU on buttocks. Patient is willing to try Gamal. Diet: Diabetic, no added salt PO intake: 100% Significant meds: lasix, SSI, others reviewed Labs reviewed Wt: 227# (08/11/19) +/-30# since admit per chart review. +BM Will add Gamal BID RD Following
--- NOTE | 2019-08-11 14:19 | NUR ---
RESTING WITH EYES CLOSED. NO C/O PAIN.
--- NOTE | 2019-08-11 16:48 | NUR ---
RESTING WO DISTRESS. CL IN REACH. RESP EVEN AND UNLABORED.
[2019-08-11 18:00] VITALS: BP 155/80
--- NOTE | 2019-08-11 18:45 | NUR ---
BEDSIDE REPORT COMPLETE. PT SITTING UP ON SIDE OF BED VISITING WITH FAMILY. DENIES ANY NEEDS OR PAIN. RR EVEN AND UNLABORED. ALERT AND ORIENTED X4. CALL LIGHT AND WATER WITHIN REACH, FALL PRECAUTIONS IN PLACE. WILL CONTINUE TO MONITOR
--- NOTE | 2019-08-11 23:48 | NUR ---
QUIET HOURS. PT LYING IN BED ON RIGHT SIDE EYES CLOSED RESTING QUIETLY.
[2019-08-12 00:24] VITALS: BP 154/63
--- NOTE | 2019-08-12 04:08 | NUR ---
LYING IN BED ON RIGHT SIDE EYES CLOSED RESTING QUIETLY
[2019-08-12 06:38] VITALS: BP 123/52
[2019-08-12 07:13] LABS: BASOPHILS 0.6 % (0-2); EOSINOPHILS 4.1 % (0-7); HEMATOCRIT 31.4 % (36.0-48.0); HEMOGLOBIN 9.7 g/dL (12-16); IMMATURE GRANULOCYTES 1.3 % (0-5); LYMPHOCYTES 9.2 % (15-50); MCH 30.6 pg (26.0-34.0); MCHC 30.9 g/dL (31.0-37.0); MCV 99.1 fL (80.0-100.0); MEAN PLATELET VOLUME 10.8 fL (7.4-10.4); MONOCYTES 7.8 % (2-11); PLATELET COUNT 188 10x3/uL (130-400); RBC 3.17 10x6/uL (4.00-5.40); RDW 16.2 % (11.5-14.5); WBC 8.5 10x3/uL (4.8-10.8)
[2019-08-12 07:18] LABS: ANION GAP 12.4 mmol/L (8-16); CALCIUM 8.5 mg/dL (8.5-10.1); CARBON DIOXIDE 29.1 mmol/L (21.0-32.0); CREATININE - SERUM 3.8 mg/dL (0.6-1.3)
[2019-08-12 07:21] LABS: PHOSPHOROUS 4.5 mg/dL (2.5-4.9); POTASSIUM - SERUM 4.5 mmol/L (3.5-5.1)
--- NOTE | 2019-08-12 07:25 | NUR ---
ALERT AND ORIENTED. NO C/O PAIN. CL IN REACH. RESP EVEN AND UNLABORED.
[2019-08-12 12:02] VITALS: BP 137/71
--- NOTE | 2019-08-12 13:01 | NUR ---
PARTICIPATED IN THERAPY TODAY.
--- NOTE | 2019-08-12 14:39 | RHP ---
PATIENT: SOTO BATES MEDICAL RECORD: [id number] ACCOUNT: [id number] LOCATION:[facility] : [birth year] ADMISSION DATE: 08/07/19 REHABILITATION HISTORY AND PHYSICAL EXAMINATION POST ADMISSION PHYSICIAN EXAMINATION DATE OF ADMISSION: 08/07/2019 ADMITTING DIAGNOSIS: Acute renal failure. HISTORY OF PRESENT ILLNESS: The patient was in the ED on 08/03/2019 with complaints of progressive weakness and a fall. The patient has been having pain to her right foot, her knee and her hip. She has been having progressive weakness since her discharge from inpatient rehabilitation on 06/09/2019 and while attempting to stand with assistance she sustained a controlled fall to the floor. The patient additionally complained of nausea and emesis, sinus drainage and diarrhea. She states that she developed diarrhea over the previous 2 days prior to admission. States that she has had chronic cough with occasional phlegm production. On exam, she had no obvious deformity to her right leg. Imaging of her pelvis and right knee were unremarkable. Chest x-ray did not show anything acute. The patient did have an admission white count though of 17.9 with a temperature max of 100.6. She was admitted for further workup and monitoring. Nephrology was consulted for elevated BUN and creatinine of 73 and 5.6. Her creatinine had been around 3 to 3.2 in June of this year, they held her diuretics. They gave her some slow IV fluids. Her white blood cell count with a white shift and temperature was watched closely. She was started on IV Maxipime. She was followed closely. Creatinine leveled off at 5.5. Her mentation improved and she feels much better, but she remains very weak and deconditioned. All cultures were negative to date and she was noted to have problems with being able to perform activities of daily living. She was moderately independent for basic ADLs and mobility using a rolling walker prior to this admission. Currently, she is min to max assist for ADLs and mobility. She is very weak and tires easily. It is extremely ataxic when standing and would like to be able to return home hopefully at her prior level of functioning. COMORBIDITIES: In this patient include qlall-ri-fuonqso renal failure, AFib and flutter, dyslipidemia, hypokalemia hyperkalemia. diabetes, neuropathy, dehydration, asthma, fatigue, weakness, congestive heart failure, hypothyroidism, chronic kidney disease, lymphoproliferative disorder, hypertension, osteoporosis, osteoarthritis, anxiety, depression, and recent falls. PAST MEDICAL HISTORY: Significant for neuropathy. She has got restless legs, diabetes, hypertension, atrial fib, edema, dyslipidemia, asthma, arthritis, chronic back pain, depression, and anxiety. PAST SURGICAL HISTORY: Includes gallbladder surgery, hernia repair, tonsillectomy and adenoidectomy, bladder sling repair, bilateral knee replacements, fistula placement, and hysterectomy. ALLERGIES: SULFA, CIPRO, MORPHINE, IMODIUM. MEDICATIONS: Nystatin powder to apply b.i.d. She is on potassium chloride 20 mEq daily, furosemide 40 mg daily, folic acid 0.4 mg daily, atorvastatin 80 mg HISTORY AND PHYSICAL [id number] SUIT,NONDADEE daily, allopurinol 100 mg daily, carvedilol 6.25 mg b.i.d. with meals, glipizide 10 mg daily, Synthroid 75 mcg daily, Januvia 50 mg at bedtime, Neurontin 100 mg b.i.d., Flonase nasal spray daily, Cordarone 200 mg b.i.d., on Nizoral shampoo daily as needed, Robitussin liquid 10 cc q. 4 hours p.r.n., Tylenol 500 mg q. 6 hours p.r.n. HABITS: No alcohol or tobacco use. FAMILY HISTORY: Noncontributory. SOCIAL HISTORY: The patient again hopes to return back home, get back to her prior level of functioning. REVIEW OF SYSTEMS: GENERAL: She does complain of diffuse weakness. HEENT: He denies cold, cough, congestion. CARDIAC: She denies any chest pain. LUNGS: Does complain of a little bit of shortness of breath with ambulation. PHYSICAL EXAMINATION: VITAL SIGNS: Stable. She is afebrile. GENERAL: A somewhat obese female, in no distress, alert upon exam. HEENT: Normocephalic, atraumatic. Mucosa moist. NECK: Supple, no lymphadenopathy. LUNGS: Clear in upper prieto. HEART: In a regular rate and rhythm. ABDOMEN: Benign. EXTREMITIES: No clubbing, cyanosis or edema. NEUROLOGIC: She does have noted proximal muscle weakness of 2/5 in her lower extremities and she does have a noted ataxic gait. LABORATORY DATA: Her white count is 9.8, H and H 10 and 32, and platelet count was noted to 147. Her sodium is 143, potassium 3.3, BUN and creatinine of 72 and 5.1 and blood sugar was noted to be 161. IMPRESSION: This is a 73-year-old female patient, admitted to the rehab with the working diagnoses of new-onset renal failure and debility associated with this. The patient has potential make improvement. We instituted the following multidisciplinary therapies to include but not limited physical, occupational, respiratory, speech, nutritional services, prosthetics and orthotics. Given her complex medical condition and risks for more complications, rehabilitation services cannot be provided at a low level of care such as [facility] facility. PLAN: 1. Admit to [facility] for intensive inpatient therapy to include the following disciplines: A. Physical therapy to improve gait, all transfer skills and bed mobility to a modified independent level. B. Occupational therapy to a modified independent level. C. Case management to assist with discharge planning and placement options. D. Nutrition to assist with nutritional needs. E. Rehabilitation nursing to assist in monitoring the patient's underlying HISTORY AND PHYSICAL [id number] SUIT,NONDADEE medical conditions and to assist with any type of bowel or bladder management. 2. The patient's current medication and medical care will be continued. 3. Will be placed on standard fall precautions. 4. The patient's estimated length of stay is approximately 7-10 days. 5. We will go ahead and give her a one-time dose of potassium and will follow up this lab work on Saturday a.m. TRANSINT:[id number] Voice Confirmation ID: [id number] DOCUMENT ID: [id number] CELIO notes whether there has been none or any medical/functional change since admission: - No change since the PAS CELIO attests patient continues to be appropriate for IRF: - Remains appropriate for the [facility] SALLY TIPTON MD at 1439 CC: [id number] DICTATION DATE: 08/08/19 170 EXCAVATING SUPERVISOR: 08/08/191952 ADM IN [facility] [address] [id number]
--- NOTE | 2019-08-12 15:35 | NUR ---
IN WC. NO CHANGE IN ASSESSMENT. SHE IS TO HAVE DIALYSIS THIS AFTERNOON. CL IN REACH. NO C/O PAIN.
--- NOTE | 2019-08-12 16:20 | NUR ---
IN DIALYSIS AT THIS TIME.
[2019-08-12 19:15] VITALS: BP 136/78
--- NOTE | 2019-08-12 19:57 | NUR ---
AWAKE AND ALERT. SITTING ON SIDE OF BED EATING SUPPER. RECENTLY RETURNED FROM DIALYSIS. RESPIRATIONS UNLABORED. LEFT ARM FISTULA INTACT. NO ACUTE DISTRESS NOTED. CALL LIGHT IN REACH.
--- NOTE | 2019-08-12 20:04 | NUR ---
DIALYSIS COORDINATOR: MET WITH PATIENT BEDSIDE IN ROOM. [facility]. PATIENT NEEDS UPDATED CHEST X-RAY - 'TO RULE OUT TB' FOR OPHD PLACEMENT. WILL UPDATE CM UPDATES AVAILABLE FROM [facility] ADMISSIONS. VIKTORIYA AHUJA.
[2019-08-13 00:15] VITALS: BP 148/73
--- NOTE | 2019-08-13 00:58 | NUR ---
RESTING IN BED WITH RESPIRTIONS UNLABORED. NO DISTRESS NOTED. CALL LIGHT IN REACH.
--- NOTE | 2019-08-13 02:55 | NUR ---
RESTING IN BED WITH EYES CLOSED AND RESPIRATIONS UNALBORED. NO DISTRESS NOTED. CALL LIGHT IN REACH.
[2019-08-13 05:07] VITALS: BP 118/89
--- NOTE | 2019-08-13 05:21 | NUR ---
AWAKE AND ASSITED TO BATHROOM , WEIGHED AND VITAL SIGNS TAKEN. ASSISTED BACK TO BED. NO ACUTE CHANGES IN CONDITION THIS SHIFT. NO DISTRESS NOTED.
[2019-08-13 12:06] VITALS: BP 123/73
--- NOTE | 2019-08-13 19:30 | NUR ---
RESTING IN BED WITH EYES CLOSED AND RESPIRATIONS UNLABORED. LEFT UNDISTURBED FOR NOW. NO DISTRESS NOTED. CALL LIGHT IN REACH.
[2019-08-13 20:00] VITALS: BP 124/64
[2019-08-14 00:07] VITALS: BP 111/93
--- NOTE | 2019-08-14 01:35 | NUR ---
RESTING IN BED WITH RESPIRATIONS UNLABORED. NO DISTRESS NOTED. CALL LIGHT IN REACH.
--- NOTE | 2019-08-14 05:22 | NUR ---
ASSTED TO BATHROOM AND BACK TO BED. HAD AN EPISODE OF NAUSEA. NO EMESIS. SHE STATED IT WAS PHLEMGN IN HER THROAT. RESTING NOW WITH NO DISTRESS NOTED.
[2019-08-14 06:05] VITALS: BP 135/74
[2019-08-14 07:50] LABS: ANION GAP 17.4 mmol/L (8-16); CALCIUM 8.6 mg/dL (8.5-10.1); CARBON DIOXIDE 24.2 mmol/L (21.0-32.0); CREATININE - SERUM 4.7 mg/dL (0.6-1.3); POTASSIUM - SERUM 5.6 mmol/L (3.5-5.1)
[2019-08-14 08:00] LABS: BASOPHILS 0.2 % (0-2); EOSINOPHILS 0.5 % (0-7); HEMATOCRIT 31.4 % (36.0-48.0); HEMOGLOBIN 9.9 g/dL (12-16); IMMATURE GRANULOCYTES 1.6 % (0-5); LYMPHOCYTES 5.1 % (15-50); MCH 30.8 pg (26.0-34.0); MCHC 31.5 g/dL (31.0-37.0); MCV 97.8 fL (80.0-100.0); MEAN PLATELET VOLUME 11.3 fL (7.4-10.4); MONOCYTES 5.3 % (2-11); NEUTROPHILS 87.3 % (40-80); PLATELET COUNT 212 10x3/uL (130-400); RBC 3.21 10x6/uL (4.00-5.40); RDW 15.7 % (11.5-14.5); WBC 12.9 10x3/uL (4.8-10.8)
[2019-08-14 11:57] VITALS: BP 121/70
--- NOTE | 2019-08-14 19:20 | NUR ---
RECEIVED PT BACK TO FLOOR FROM DIALYSIS VIA W/C
--- NOTE | 2019-08-14 19:40 | NUR ---
PT LYING IN BED ON RIGHT SIDE ALERT AND ORIENTED X4. DAUGHTER AT BEDSIDE NOTED. DENIES ANY NEEDS OR PAIN. NO SIGNS OF DISTRESS NOTED. CALL LIGHT AND WATER WITHIN REACH, FALL PRECAUTIONS IN PLACE. WILL CONTINUE TO MONITOR
[2019-08-14 20:45] VITALS: BP 108/61
[2019-08-14 21:42] VITALS: BP 108/61
[2019-08-15 00:25] VITALS: BP 137/68
--- NOTE | 2019-08-15 01:58 | NUR ---
QUIET HOURS. PT LYING IN BED EYES CLOSED RESTING QUIETLY
--- NOTE | 2019-08-15 04:57 | NUR ---
PT LYING IN BED EYES CLOSED RESTING QUIETLY
[2019-08-15 06:53] LABS: ANION GAP 15.7 mmol/L (8-16); CALCIUM 8.7 mg/dL (8.5-10.1); CARBON DIOXIDE 25.4 mmol/L (21.0-32.0); CREATININE - SERUM 4.5 mg/dL (0.6-1.3); POTASSIUM - SERUM 5.1 mmol/L (3.5-5.1)
[2019-08-15 07:01] VITALS: BP 151/85
--- NOTE | 2019-08-15 07:27 | NUR ---
RESTING WO DISTRESS. RESP EVEN AND UNLABORED. CL IN REACH.
[2019-08-15 08:29] VITALS: BP 149/83
[2019-08-15 12:11] VITALS: BP 127/84
--- NOTE | 2019-08-15 13:53 | NUR ---
CHANGED LINENS. SHOWER GIVEN PER PATIENT.
--- NOTE | 2019-08-15 16:13 | NUR ---
NO CHANGE IN ASSESSMENT. IN WC IN HALLWAY.
[2019-08-15 16:43] VITALS: BP 148/71
--- NOTE | 2019-08-15 19:09 | NUR ---
BEDSIDE REPORT COMPLETE. PT SITTING UP IN ROOM IN W/C WATCHING TV. DENIES ANY NEEDS OR PAIN. NO SIGNS OF DISTRESS NOTED. CALL LIGHT WITHIN REACH, FALL PRECAUTIONS IN PLACE. WILL CONTINUE TO MONITOR
--- NOTE | 2019-08-15 23:05 | NUR ---
ASSISTED PT TO RESTROOM WITH MIN ASSIST
[2019-08-16 01:12] VITALS: BP 132/67
--- NOTE | 2019-08-16 03:24 | NUR ---
PT LYING IN BED SUPINE, HOB 15 DEGREES EYES CLOSED RESTING QUIETLY
[2019-08-16 06:04] VITALS: BP 143/65
--- NOTE | 2019-08-16 12:10 | NUR ---
SITTING UP EATING LUNCH. NO C/O PAIN. CL IN REACH. RESP EVEN AND UNLABORED.
[2019-08-16 16:32] VITALS: BP 151/88
--- NOTE | 2019-08-16 16:58 | NUR ---
NO CHANGE IN ASSESSMENT. CL IN REACH. NO DISTRESS NOTED. SITTING IN WC.
--- NOTE | 2019-08-16 19:35 | NUR ---
BEDSIDE REPORT COMPLETED. PT SITTING UP IN W/C. ALERT AND ORIENTED X4. ASSISTED WITH TRANSFER TO BED WITH MIN ASSIST. PT SEEMS WEAKER TONIGHT ALTHOUGH PT RELATES IT TO SITTING UP IN W/C MAJORITY OF THE DAY. WILL CONTINUE TO MONITOR.
--- NOTE | 2019-08-16 22:30 | NUR ---
ASSISTED TO RESTROOM WITH MIN ASSIST.
[2019-08-17 00:04] VITALS: BP 151/71
--- NOTE | 2019-08-17 01:37 | NUR ---
ASSISTED WITH SHOWER MIN ASSIST. APPLIED NYSTATIN POWDER TO VANCE AREA, UNDER BREASTS, AND ABDOMINAL FOLDS. APPLIED CALMOSEPTINE TO BUTTOCKS, LEFT SIDE HAS STAGE II APPROX 1.5CM X 1CM. COMPLETE LINEN CHANGE DONE. PT LYING IN BED ON RIGHT SIDE RESTING QUIETLY.
[2019-08-17 05:14] VITALS: BP 141/75
--- NOTE | 2019-08-17 05:18 | NUR ---
PT SITTING UP ON SIDE OF BED. DENIES ANY NEEDS OR PAIN.
[2019-08-17 06:02] LABS: BASOPHILS 0.3 % (0-2); EOSINOPHILS 0.9 % (0-7); HEMATOCRIT 29.4 % (36.0-48.0); HEMOGLOBIN 9.4 g/dL (12-16); IMMATURE GRANULOCYTES 1.1 % (0-5); LYMPHOCYTES 4.6 % (15-50); MCH 30.8 pg (26.0-34.0); MCV 96.4 fL (80.0-100.0); MEAN PLATELET VOLUME 11.3 fL (7.4-10.4); MONOCYTES 7.1 % (2-11); PLATELET COUNT 200 10x3/uL (130-400); RBC 3.05 10x6/uL (4.00-5.40); RDW 15.8 % (11.5-14.5); WBC 14.6 10x3/uL (4.8-10.8)
[2019-08-17 06:34] LABS: ANION GAP 16.3 mmol/L (8-16); CALCIUM 8.2 mg/dL (8.5-10.1); CARBON DIOXIDE 25.4 mmol/L (21.0-32.0); CREATININE - SERUM 5.5 mg/dL (0.6-1.3); POTASSIUM - SERUM 4.7 mmol/L (3.5-5.1)
--- NOTE | 2019-08-17 10:59 | NUR ---
THE PATIENT WAS LYING IN BED WHEN STAFF ENTERED HER ROOM. BED IS IN THE LOW POSITION WITH SIDERAILS X2 AND CALL LIGHT WITHIN REACH. THE PATIENT WAS EDUCATED ON THE USE OF A CALL LIGHT AND DEMONSTRATES UNDERSTANDING VIA TEACHBACK METHOD. THE PATIENT APPEARS COMFORTABLE WITH NO QUESTIONS OR COCNERNS AT THIS TIME.
[2019-08-17 11:55] VITALS: BP 140/78
--- NOTE | 2019-08-17 11:56 | NUR ---
PATIENT TO DIALYSIS. THE PATIENT APPEARS COMFORTABLE WITH NO QUESTIONS OR COCNERNS AT THIS TIME.
[2019-08-17 18:39] VITALS: BP 128/71
[2019-08-17 18:41] VITALS: BP 128/71
--- NOTE | 2019-08-17 19:35 | NUR ---
GREETED PATIENT AND INTRODUCED MYSELF. PATIENT IS SITTING IN WHEELCHAIR VISITING WITH NEW ROOMMATE. RESPIRATIONS EVEN. NO S/S OF DISTRESS. DENIES ANY FURTHER NEEDS AT THIS TIME. CALL LIGHT IN REACH.
[2019-08-18] VITALS: BP 141/74
[2019-08-18 05:50] VITALS: BP 132/75
--- NOTE | 2019-08-18 07:58 | NUR ---
SITTING ON BS. ALERT AND ORIENTED. NO C/O PAIN. RESP EVEN AND UNLABORED. CL IN REACH.
[2019-08-18 08:21] LABS: ANION GAP 14.9 mmol/L (8-16); CALCIUM 8.1 mg/dL (8.5-10.1); CARBON DIOXIDE 28.5 mmol/L (21.0-32.0); CREATININE - SERUM 4.9 mg/dL (0.6-1.3); LDL-HDL RATIO 1.4 ratio (1.5-3.5); POTASSIUM - SERUM 4.4 mmol/L (3.5-5.1)
[2019-08-18 12:02] VITALS: BP 128/64
--- NOTE | 2019-08-18 12:09 | NUR ---
ITTING IN CHAIR EATING LUNCH. CL IN REACH.
--- NOTE | 2019-08-18 14:15 | NUR ---
Nutrition Follow-up: Diet: Diabetic, low sodium + Gamal BID PO intake: 100% +HD Wt: 230# (08/18/19): admit: 222# (08/07/19) +BM Labs and meds reviewed stage II wound noted to buttocks per skin assessment Continue current diet and Gamal BID, or per renal RD Following
--- NOTE | 2019-08-18 14:27 | NUR ---
VISITED WITH PATIENT REGARDING DISCHARGE PLANS, AT THIS TIME PATIENT FEELS SHE IS UNSAFE TO DSICHARGE HOME. SHE WOULD LIKE TO DISCHARGE TO A SNF FACILITY. WE TALKED ABOUT [facility] AND [facility]. REFERRAL HAS BEEN FAXED. WILL CONTINUE TO FOLLOW WITH PATIENT
--- NOTE | 2019-08-18 16:55 | NUR ---
NO CHANGE IN ASSESSMENT. IN THERAPY ROOM AT THIS TIME. CL IN REACH.
--- NOTE | 2019-08-18 19:30 | NUR ---
PATIENT OFF THE UNIT IN WHEELCHAIR WITH FAMILY MEMBERS.
--- NOTE | 2019-08-18 20:00 | NUR ---
PT. BACK TO UNIT. TRANSFERED TO BED FROM WHEELCHAIR. REPOSITIONED FOR COMFORT. CALL LIGHT IN REACH.
[2019-08-18 20:46] VITALS: BP 137/86
[2019-08-19 00:05] VITALS: BP 150/85
[2019-08-19 05:57] VITALS: BP 149/87
[2019-08-19 06:35] LABS: BASOPHILS 0.4 % (0-2); EOSINOPHILS 2.5 % (0-7); HEMATOCRIT 30.6 % (36.0-48.0); HEMOGLOBIN 9.7 g/dL (12-16); IMMATURE GRANULOCYTES 1.1 % (0-5); LYMPHOCYTES 9.9 % (15-50); MCH 30.6 pg (26.0-34.0); MCHC 31.7 g/dL (31.0-37.0); MCV 96.5 fL (80.0-100.0); MEAN PLATELET VOLUME 11.3 fL (7.4-10.4); MONOCYTES 8.4 % (2-11); NEUTROPHILS 77.7 % (40-80); PLATELET COUNT 205 10x3/uL (130-400); RBC 3.17 10x6/uL (4.00-5.40); RDW 16.4 % (11.5-14.5); WBC 9.7 10x3/uL (4.8-10.8)
--- NOTE | 2019-08-19 07:22 | NUR ---
RESTING WITH EYES CLOSED. RESP EVEN AND UNLABORED. NO DISTRESS. CL IN REACH.
[2019-08-19 07:34] LABS: ANION GAP 14.9 mmol/L (8-16); CALCIUM 8.8 mg/dL (8.5-10.1); CARBON DIOXIDE 25.3 mmol/L (21.0-32.0); CREATININE - SERUM 5.1 mg/dL (0.6-1.3); PHOSPHOROUS 5.5 mg/dL (2.5-4.9); POTASSIUM - SERUM 4.2 mmol/L (3.5-5.1)
[2019-08-19] MEDS ORDERED: IPRAT-ALBUT 0.5-3 ML UPD (08:29)
--- NOTE | 2019-08-19 09:46 | NUR ---
TOOK TO DIALYSIS AT THIS TIME. WILL DC TO THE [facility] AFTER DIALYSIS TODAY.
--- NOTE | 2019-08-19 11:29 | NUR ---
PATIENT DISCHARGING TO THE [facility] VIA FACILITY VAN TODAY. PATIENT WILL CONTINUE SAME DAYS AND TIME OF DIALYSIS AT [facility] , M-W-F @ 11:30. NO NEW DME OR HOME HEALTH NEEDED AT THIS TIME. AN APPOINTMENT WITH DR. WILLAMS WILL BE MADE AT TIME OF DISCHARGE FROM FACILITY. PATIENT CHOICE FORM AND IMFM FORMS SIGNED, COPY GIVEN TO PATIENT AND FILED IN CHART. DISCHARGE INSTRUCTIONS FAXED TO PCP, SNF AND REVIEWED WITH PATIENT.
--- NOTE | 2019-08-19 11:38 | NUR ---
IN DIALYSIS AT THIS TIME.
--- NOTE | 2019-08-19 12:04 | NUR ---
DC REPORT CALLED TO THE [facility], SPOKE WITH KENYON HERNANDEZ. NOTIFIED TO RESERVE L ARM/FISTULA. DIALYSIS MWF AT [facility]. WILL BE PICKED UP TODAY AT 1600 PER THEIR FACILITY.
--- NOTE | 2019-08-19 15:26 | NUR ---
SITTING IN WC WAITING TO GO TO THE [facility].
--- NOTE | 2019-08-19 16:23 | NUR ---
LEIGHA' TO THE [facility] AT THIS TIME.
== END 2019-08-19 16:24 | DRG 948 ==
LOC: D.REHAB 15:38
PROVIDERS: Internal Medicine Nephrology; ADMIT Emergency Medicine; ATTEND Emergency Medicine
DX: R53.81 Other malaise (principal); I13.0 Hypertensive heart and chronic kidney disease with heart failure and stage 1 through stage 4 chronic kidney disease, or unspecified chronic kidney disease; N17.9 Acute kidney failure, unspecified; E11.22 Type 2 diabetes mellitus with diabetic chronic kidney disease; N18.9 Chronic kidney disease, unspecified; I50.9 Heart failure, unspecified; I48.91 Unspecified atrial fibrillation; E78.5 Hyperlipidemia, unspecified; E87.6 Hypokalemia; E87.5 Hyperkalemia; E11.40 Type 2 diabetes mellitus with diabetic neuropathy, unspecified; E86.0 Dehydration; J45.909 Unspecified asthma, uncomplicated; R53.1 Weakness; E03.9 Hypothyroidism, unspecified; F41.8 Other specified anxiety disorders; M19.90 Unspecified osteoarthritis, unspecified site; M81.0 Age-related osteoporosis without current pathological fracture

== ENCOUNTER 2019-08-31 10:01 | Inpatient (IN) | payer MEDICARE, OTHER ==
[~2019-08-31] VITALS: Ht 175.3 cm; Wt 104.8 kg
[~2019-08-31 10:01] MED LIST changes: +IPRAT-ALBUT 0.5-3 ML UPD
[2019-08-31 10:27] LABS: BASOPHILS 0.2 % (0-2); EOSINOPHILS 0 % (0-7); HEMATOCRIT 34.3 % (36.0-48.0); HEMOGLOBIN 10.4 g/dL (12-16); IMMATURE GRANULOCYTES 0.5 % (0-5); LYMPHOCYTES 4.2 % (15-50); MCH 30.9 pg (26.0-34.0); MCHC 30.3 g/dL (31.0-37.0); MCV 101.8 fL (80.0-100.0); MEAN PLATELET VOLUME 10.6 fL (7.4-10.4); MONOCYTES 4.4 % (2-11); NEUTROPHILS 90.7 % (40-80); RBC 3.37 10x6/uL (4.00-5.40); RDW 17.6 % (11.5-14.5); WBC 10.8 10x3/uL (4.8-10.8)
[2019-08-31 10:38] LABS: APTT 32.4 SECONDS (22.8-39.4); INR 1.4 (0.85-1.17); PROTIME 16.6 SECONDS (11.6-15.0)
[2019-08-31 10:40] LABS: ALBUMIN 2.7 g/dL (3.4-5.0); ALKALINE PHOSPHATASE 167 U/L (46-116); ALT (SGPT) 136 U/L (10-68); BILIRUBIN - TOTAL 0.75 mg/dL (0.2-1.3); CALC OSMOLALITY 292 mosm/kg (275-300); CALCIUM 8.2 mg/dL (8.5-10.1); CARBON DIOXIDE 22.5 mmol/L (21.0-32.0); CHLORIDE - SERUM 99 mmol/L (98-107); CREATININE - SERUM 6.4 mg/dL (0.6-1.3); GLUCOSE 204 mg/dL (74-106); POTASSIUM - SERUM 5.7 mmol/L (3.5-5.1); PROTEIN - SERUM 6.9 g/dL (6.4-8.2); SODIUM 134 mmol/L (136-145); UREA NITROGEN 67 mg/dL (7-18); eGFR NON AFRICAN AMERICAN 7 mL/min (90-120)
[2019-08-31 10:51] LABS: PLATELET COUNT 275 10x3/uL (130-400)
[2019-08-31 10:52] LABS: CKMB 1.9 U/L (0.0-3.6); CREATINE KINASE 86 UL (21-215); MAGNESIUM - SERUM 1.8 mg/dL (1.8-2.4); TROPONIN-I 0.042 ng/mL (0.000-0.060)
[2019-08-31 10:56] LABS: D-DIMER-QUANTITATIVE 4.93 ug/mLFEU (0.20-0.54)
--- NOTE | 2019-08-31 10:57 | NUR ---
CRITICAL D-DIMER RESULTS RCVD FROM LAB: D-DIMER= 4.93
--- NOTE | 2019-08-31 10:58 | NUR ---
DR SARABIA NOTIFIED OF ELEVATED D-DIMER
[2019-08-31] MEDS ORDERED: LEVOXYL100 MCG PO (11:16)
[2019-08-31] MEDS ORDERED: ULTRAM50 MG PO (11:17)
[2019-08-31 11:22] LABS: PRO BNP 73175 pg/mL (0-125)
[2019-08-31 12:12] VITALS: BP 119/67
--- NOTE | 2019-08-31 12:26 | NUR ---
PT HAS STAGE 2 SACRAL DECUB WITH DRSG IN PLACE. PT C/I PAIN TO AREA. DRSG ROOLED UP ON OPENED AREA. DRSG REMOVED, AREA CLEANSED AND DRY DRSG REAPPLIED. PT STATED "FEELS BETTER"
--- NOTE | 2019-08-31 12:40 | NUR ---
TO CT VIA STRETCHER WITH COUNTY ADMINISTRATOR
[2019-08-31 12:58] VITALS: BP 121/76
--- NOTE | 2019-08-31 12:58 | NUR ---
RTND FROM CT. RESTING IN BED. DENIES C/O. FAMILY AT BS. VSS
--- NOTE | 2019-08-31 13:50 | NUR ---
BC DRAWN X2 VIA LAB TER
[2019-08-31 14:01] VITALS: BP 121/78
--- NOTE | 2019-08-31 14:23 | NUR ---
REPORT CALLED TO SHOAIB HUIZAR
--- NOTE | 2019-08-31 14:45 | NUR ---
TRANSPORTED TO ROOM #2137, CONDITION STABLE
--- NOTE | 2019-08-31 15:02 | MORECARE ---
CASE MANAGEMENT DISCHARGE SUMMARY PATIENT: SOTO BATES UNIT: [id number] ADM DATE: 08/31/19 AGE: 73 : 46 SEX: F ROOM/BED: D.2134 AUTHOR: MARYSOL SAL PHYSICIAN: REFERRING PHYSICIAN: SRINIVASA JAIME MD DATE OF SERVICE: 08/31/19 Discharge Plan Patient Name: SOTO BATES [facility] [facility] 1945 Planned Disposition: SNF w Planned Readmission Anticipated Discharge Date: 09/02/19 Discharge Date: Expected LOS: 2 Initial Reviewer: [email or web address] Initial Review Date: 08/31/2019 Generated: 08/31/19 4:02 pm DCPIA - Discharge Planning Initial Assessment Updated by [email or web address]: Elin Easton on 08/31/19 2:59 pm * Is the patient Alert and Oriented? Yes * How many steps to enter\exit or inside your home? none * PCP Dr. Nunes * Preadmission Environment Care Home Facility * Facility Name [facility] signed in the ER for return at [place]. * ADLs Partial Dependent * Partial ADLs (Assistance needed) Ambulation Bathing Medication Management Transfers * Equipment Rolling Walker Shower Chair * List name and contact numbers for known caregivers / representatives who currently or will assist patient after discharge: Kellie garciadaughter - [phone] * Verbal permission to speak to the caregivers and representatives has been obtained from the patient. Yes * Community resources currently utilized Other * Please name any agencies selected above. Dialysis M-W-F * Additional services required to return to the preadmission environment? No * Can the patient safely return to the preadmission environment? Yes * Has this patient been hospitalized within the prior 30 days at any hospital? Yes Patient Name: SOTO BATES Page [id number] at 1502 All edits/amendments must be made on the electronic document DICTATION DATE: 08/31/19 1501 WILDLIFE REHABILITATOR: KERMIT 08/31/19 1501 RPT#: [id number] DE DATE: STATUS: ADM IN [facility] [address] [place] [address] END OF REPORT
--- NOTE | 2019-08-31 15:12 | MORECARE ---
CASE MANAGEMENT DISCHARGE SUMMARY PATIENT: SOTO BATES UNIT: [id number] ADM DATE: 08/31/19 AGE: 73 : 46 SEX: F ROOM/BED: D.1081 AUTHOR: MARYSOL SLA PHYSICIAN: REFERRING PHYSICIAN: SRINIVASA JAIME MD DATE OF SERVICE: 08/31/19 Discharge Plan Patient Name: SOTO BATES Facility: [facility]:[place] : 1945 Planned Disposition: SNF w Planned Readmission Anticipated Discharge Date: 09/02/19 Discharge Date: Expected LOS: 2 Initial Reviewer: [email or web address] Initial Review Date: 08/31/2019 Generated: 08/31/19 4:12 pm DCP- Discharge Planning Updated by [id number]: Elin Easton on 08/31/19 2:[address] DC PLAN: Return to the [facility] ANTICIPATED DC NEEDS: No further dc needs. CM met with patient to complete initial dc planning assessment. CM educated patient on the CM role and verbal consent given by patient to complete assessment. CM verified patient's address, phone number, and emergency contact phone numbers. Patient is currently in rehab @[facility]. At discharge [facility] and feels this is a safe discharge. GABRIELA form signed by patient for return to The [facility]. Signed form placed in chart and signed form given to patient. Patient denied further known discharge needs at this time. . Patient reports the [facility] will transport him/her home at time of discharge. CM will continue to follow and will assist as needed with dc plans/needs. Elin Easton RN, [facility] DCPIA - Discharge Planning Initial Assessment Updated by [id number]: Elin Easton on 08/31/19 3:05 pm * Is the patient Alert and Oriented? Yes * How many steps to enter\exit or inside your home? none * PCP Dr. Nunes * Preadmission Environment Nursing Home Facility * Facility Name The [facility] signed in the ER for return at ct. * ADLs Partial Dependent * Partial ADLs (Assistance needed) Ambulation Bathing Medication Management Transfers * Equipment Rolling Walker Shower Chair * List name and contact numbers for known caregivers / representatives who currently or will assist patient after discharge: Kellie Duncan - grand-daughter - [phone] * Verbal permission to speak to the caregivers and representatives has been obtained from the patient. Yes * Community resources currently utilized Other * Additional services required to return to the preadmission environment? No * Can the patient safely return to the preadmission environment? Yes * Has this patient been hospitalized within the prior 30 days at any hospital? Yes Last DP export: 08/31/19 2:02 p Patient Name: PAULO, NONDADEE Page [id number] at 1512 All edits/amendments must be made on the electronic document DICTATION DATE: 08/31/191511 CURING BIN OPERATOR: KERMIT 08/31/191511 RPT#: [id number] DC DATE: STATUS: ADM IN [facility] [address] [place] [address] END OF REPORT
[2019-08-31 15:49] VITALS: BMI 34.2
[2019-08-31 16:00] VITALS: BP 91/60
--- NOTE | 2019-08-31 19:16 | NUR ---
RECIEVED SITTING UP ON SIDE OF BED. ALERT AND ORIENTED X4. GENERALIZED EDEMA TO LEGS AND ARMS. AWAITING DIALYSIS. LEFT LOWER LOBES HAVE CRACKLES. O2@ 3 LITERS PER N/C. IV TO RIGHT AC SL. DENIES ANY NEEDS AT THIS TIME.
[2019-08-31 20:00] VITALS: BP 135/70
--- NOTE | 2019-09-01 00:47 | NUR ---
IN DIALYSIS AT THIS TIME.
[2019-09-01 04:34] VITALS: BP 142/78
[2019-09-01 06:10] LABS: BASOPHILS 0.2 % (0-2); EOSINOPHILS 0.2 % (0-7); HEMATOCRIT 33.3 % (36.0-48.0); HEMOGLOBIN 10.1 g/dL (12-16); IMMATURE GRANULOCYTES 0.6 % (0-5); LYMPHOCYTES 8.2 % (15-50); MCH 30.5 pg (26.0-34.0); MCHC 30.3 g/dL (31.0-37.0); MCV 100.6 fL (80.0-100.0); MEAN PLATELET VOLUME 10.6 fL (7.4-10.4); MONOCYTES 7.4 % (2-11); NEUTROPHILS 83.4 % (40-80); PLATELET COUNT 225 10x3/uL (130-400); RBC 3.31 10x6/uL (4.00-5.40); RDW 17.8 % (11.5-14.5); WBC 8.7 10x3/uL (4.8-10.8)
[2019-09-01 06:37] LABS: CALCIUM 7.9 mg/dL (8.5-10.1); PHOSPHOROUS 5.9 mg/dL (2.5-4.9)
--- NOTE | 2019-09-01 06:37 | NUR ---
SNACK GIVEN EARLIER FOR LOW BLOOD SUGAR. NOW BLOOD SUGAR 88.
[2019-09-01 06:39] LABS: ANION GAP 12.1 mmol/L (8-16); CARBON DIOXIDE 28.3 mmol/L (21.0-32.0); POTASSIUM - SERUM 4.4 mmol/L (3.5-5.1)
[2019-09-01 08:00] VITALS: BP 144/82
--- NOTE | 2019-09-01 08:00 | NUR ---
REPORT RECIEVED. PT SITTING UP IN BED EATING BREAKFAST. RR EVEN AND SHALLOW, SHE IS CURRENTLY ON 3L NC. SHE HAS A R AC PIV THAT IS SL AND A L ARM FISTULA MAKING HER A L ARM RESERVE. BED LOCKED AND IN LOWEST POSITION, CALL LIGHT WITHIN REACH. WILL CTM
[2019-09-01 12:00] VITALS: BP 135/80
--- NOTE | 2019-09-01 14:48 | NUR ---
I have reviewed this patient and I concur with the Shift Assessment completed by the Licensed Practical Nurse today this shift.
[2019-09-01 14:50] VITALS: Ht 175.3 cm; Wt 104.8 kg
[2019-09-01 16:07] VITALS: BP 122/96
--- NOTE | 2019-09-01 19:24 | NUR ---
RECIEVED BEDSIDE REPORT. UP IN BED WITH EYES OPEN AND TV ON. ALERT AND ORIENTED X4. REPORTED GOT UP OUT OF BED TODAY AND 3 STAFF HAD TO HELP HER BACK TO BED D/T WEAKNESS. IV TO RIGHT AC SL.. CONT TO HAVE GENERALIZED SWELLING. STATES " I FEEL BETTER TODAY". FISTULA TO LEFT ARM WITH GOOD BRUIT AND TRILL. DENIES ANY NEEDS AT THIS TIME.
[2019-09-01 20:22] VITALS: BP 125/75
[2019-09-02] VITALS: BP 112/62
--- NOTE | 2019-09-02 00:41 | NUR ---
IV INFILTRATED WHEN ATTEMPTING TO FLUSH. D/C'D AND RESTARTED WITH 22GA TO RIGHT FA ATTEMPTS X1.
[2019-09-02 05:24] VITALS: BP 156/84
[2019-09-02 06:32] LABS: BASOPHILS 0.5 % (0-2); EOSINOPHILS 2.3 % (0-7); HEMATOCRIT 34.5 % (36.0-48.0); HEMOGLOBIN 10.3 g/dL (12-16); IMMATURE GRANULOCYTES 0.6 % (0-5); LYMPHOCYTES 11.3 % (15-50); MCH 30.6 pg (26.0-34.0); MCHC 29.9 g/dL (31.0-37.0); MCV 102.4 fL (80.0-100.0); MEAN PLATELET VOLUME 10.9 fL (7.4-10.4); MONOCYTES 7.4 % (2-11); NEUTROPHILS 77.9 % (40-80); PLATELET COUNT 230 10x3/uL (130-400); RBC 3.37 10x6/uL (4.00-5.40); RDW 18.1 % (11.5-14.5); WBC 8.7 10x3/uL (4.8-10.8)
[2019-09-02 06:53] LABS: ANION GAP 15.2 mmol/L (8-16); CALCIUM 8.1 mg/dL (8.5-10.1); CARBON DIOXIDE 26.7 mmol/L (21.0-32.0); PHOSPHOROUS 6.8 mg/dL (2.5-4.9); POTASSIUM - SERUM 4.9 mmol/L (3.5-5.1)
[2019-09-02 08:20] VITALS: BP 153/81
--- NOTE | 2019-09-02 10:30 | NUR ---
TO DIALYSIS VIA BED
--- NOTE | 2019-09-02 14:52 | NUR ---
I have reviewed this patient and I concur with the Shift Assessment completed by the Licensed Practical Nurse today this shift.
--- NOTE | 2019-09-02 15:16 | NUR ---
RETURNED TO ROOM VIA BED FROM DIALYSIS
--- NOTE | 2019-09-02 15:50 | NUR ---
I have reviewed this patient and I concur with the Shift Assessment completed by the Licensed Practical Nurse today this shift.
[2019-09-02 16:15] VITALS: BP 129/69
--- NOTE | 2019-09-02 17:30 | NUR ---
RESP UL ON . NO NEEDS VOICED AT THIS TIME. CALL LIGHT IN REACH.
--- NOTE | 2019-09-02 17:31 | NUR ---
SITTING UP SOB EATING DINNER. RESP UL ON . FAMILY AT BS. CALL LIGHT IN REACH.
--- NOTE | 2019-09-02 19:22 | NUR ---
RECIEVED BEDSIDE REPORT. LETHARGIC AND HARD TO AROUSE. STATED : I'M VERY TIRED". O2@ 2 LITERS PER N/C. IV TO RIGHT FA SL.. TELEMETRY IN PLACE. DSG TO SACRUM CDI. DSG TO LEFT LEG CDI. RIGHT LUNG SOUNDS CRACKLES. HAS PRODUCTIVE COUGH. DENIES ANY SPUTUM. DENIUES ANY NEEDS AT THIS TIME. WILL CONT. POC.
[2019-09-02 20:00] VITALS: BP 143/70
[2019-09-03 00:35] VITALS: BP 109/61
[2019-09-03 04:00] VITALS: BP 123/70
[2019-09-03 06:28] LABS: BASOPHILS 0.2 % (0-2); EOSINOPHILS 2.5 % (0-7); HEMATOCRIT 34.3 % (36.0-48.0); HEMOGLOBIN 10.3 g/dL (12-16); IMMATURE GRANULOCYTES 0.7 % (0-5); LYMPHOCYTES 9.3 % (15-50); MCH 30.7 pg (26.0-34.0); MCV 102.1 fL (80.0-100.0); MEAN PLATELET VOLUME 11.2 fL (7.4-10.4); MONOCYTES 7.5 % (2-11); NEUTROPHILS 79.8 % (40-80); PLATELET COUNT 192 10x3/uL (130-400); RBC 3.36 10x6/uL (4.00-5.40); RDW 17.7 % (11.5-14.5); WBC 8.1 10x3/uL (4.8-10.8)
[2019-09-03 06:59] LABS: ANION GAP 11.3 mmol/L (8-16); CALCIUM 7.8 mg/dL (8.5-10.1); CARBON DIOXIDE 31.2 mmol/L (21.0-32.0); POTASSIUM - SERUM 4.5 mmol/L (3.5-5.1)
[2019-09-03 09:22] VITALS: BP 139/72
--- NOTE | 2019-09-03 10:58 | NUR ---
ZENIA IS RESTING ON HER BACK IN BED, TALKING ON THE PHONE WITH HER DAUGHTER AT THIS TIME.
[2019-09-03 12:02] VITALS: BP 141/78
--- NOTE | 2019-09-03 15:20 | NUR ---
Nutrition Follow-up: Fair appetite/PO intake. Pt reports that some foods don't taste right. Does not want Nepro. Diet: Renal ADA PO intake: 50-100% No new wt Last BM: 09/02 Labs noted: Glu 113, K+ 4.5, PO4 5.0 Meds noted: Glucotrol, Januvia -Continue current diet as tolerated. -[place] food preferences within diet restrictions. -RD following.
--- NOTE | 2019-09-03 15:24 | MORECARE ---
CASE MANAGEMENT DISCHARGE SUMMARY PATIENT: SOTO BATES UNIT: [id number] ADM DATE: 08/31/19 AGE: 73 : 46 SEX: F ROOM/BED: D.0126 AUTHOR: MARYSOL SAL PHYSICIAN: REFERRING PHYSICIAN: SRINIVASA JAIME MD DATE OF SERVICE: 09/03/19 Discharge Plan Patient Name: SOTO BATES Facility: [facility]:[place] : 1945 Planned Disposition: Nursing Home Facility Anticipated Discharge Date: 09/04/19 Discharge Date: Expected LOS: 4 Initial Reviewer: [email or web address] Initial Review Date: 08/31/2019 Generated: 09/03/19 4:23 pm DCP- Discharge Planning Updated by [email or web address]: Elin Easton on 08/31/19 2:[address] DC PLAN: Return to the [facility] ANTICIPATED DC NEEDS: No further dc needs. CM met with patient to complete initial dc planning assessment. CM educated patient on the CM role and verbal consent given by patient to complete assessment. CM verified patient's address, phone number, and emergency contact phone numbers. Patient is currently in rehab @[facility]. At discharge [facility] and feels this is a safe discharge. GABRIELA form signed by patient for return to The [facility]. Signed form placed in chart and signed form given to patient. Patient denied further known discharge needs at this time. . Patient reports the [facility] will transport him/her home at time of discharge. CM will continue to follow and will assist as needed with dc plans/needs. Elin Easton RN, [facility] DCPIA - Discharge Planning Initial Assessment Updated by [email or web address]: Elin Easton on 08/31/19 3:05 pm * Is the patient Alert and Oriented? Yes * How many steps to enter\exit or inside your home? none * PCP Dr. Nunes * Preadmission Environment Nursing Home Facility * Facility Name [facility] signed in the ER for return at or. * ADLs Partial Dependent * Partial ADLs (Assistance needed) Ambulation Bathing Medication Management Transfers * Equipment Rolling Walker Shower Chair * List name and contact numbers for known caregivers / representatives who currently or will assist patient after discharge: Kellie Duncan - grand-daughter - [phone] * Verbal permission to speak to the caregivers and representatives has been obtained from the patient. Yes * Community resources currently utilized Other * Additional services required to return to the preadmission environment? No * Can the patient safely return to the preadmission environment? Yes * Has this patient been hospitalized within the prior 30 days at any hospital? Yes External Providers External Provider: [facility] Next Contact Date: 09/03/2019 Service Request Date: Service Type: Resolution: Reviewer: Comments: Last DP export: 08/31/19 2:12 p Patient Name: SUIT, NONDADEE Page [phone] at 1524 All edits/amendments must be made on the electronic document DICTATION DATE: 09/03/191522 MUSIC PUBLICIST: KERMIT 09/03/19 152 RPT#: [id number] DC DATE: STATUS: ADM IN [facility] [address] [place] [address] END OF REPORT
--- NOTE | 2019-09-03 15:32 | MORECARE ---
CASE MANAGEMENT DISCHARGE SUMMARY PATIENT: SOTO BATES UNIT: [id number] ADM DATE: 08/31/19 AGE: 73 : 46 SEX: F ROOM/BED: D.9222 AUTHOR: MARYSOL SAL PHYSICIAN: REFERRING PHYSICIAN: SRINIVASA JAIME MD DATE OF SERVICE: 09/03/19 Discharge Plan Patient Name: SOTO BATES Facility: [facility]:[place] : 1945 Planned Disposition: Snf Facility Anticipated Discharge Date: 09/04/19 Discharge Date: Expected LOS: 4 Initial Reviewer: [id number] Initial Review Date: 08/31/2019 Generated: 09/03/19 4:32 pm Comments DCP- Discharge Planning Updated by [email or web address]: Oscar Velarde on 09/03/19 2:[address] Patient Name: SOTO BATES Encounter No: [id number] : 1945 Primary Insurance: MEDICARE A & B Anticipated DC Date: 09-04-2019 Planned Disposition: Snf Facility External Planned Provider: [facility], MEDICARE REHAB BED DCP follow-up note: CM RECEIVED DISCHARGE PLANNING ORDER, SPOKE TO PT IN ROOM REGARDING DISCHARGE PLANNING. PT REPORTS PLAN TO RETURN TO THE [facility] FOR CONTINUED REHAB. IMPORTANT MESSAGE FROM MEDICARE PROVIDED AND DISCUSSED. CM REVIEWED CHART, PT HAS NOT HAD PHYSICAL THERAPY EVALUATION AND WILL REQUIRE THIS FOR GROUP HOME REHAB RETURN. ORDER OBTAINED. CM FAXED UPDATE TO THE [facility] VIA [employer] AT [phone]. FOR DISCHARGE TO THE [facility], FAX DISCHARGE INFORMATION TO THE [facility] AT [phone]; NURSE REPORT TO BE CALLED TO THE [facility] AT [phone]. THE [facility] TO ARRANGE VAN TRANSPORATION. [place] DCP- Discharge Planning Updated by [email or web address]: Elin Easton on 08/31/19 2:[address] DC PLAN: Return to the [facility] ANTICIPATED DC NEEDS: No further dc needs. CM met with patient to complete initial dc planning assessment. CM educated patient on the CM role and verbal consent given by patient to complete assessment. CM verified patient's address, phone number, and emergency contact phone numbers. Patient is currently in rehab @[facility]. At discharge patient plans to return to [facility] and feels this is a safe discharge. GABRIELA form signed by patient for return to The [facility]. Signed form placed in chart and signed form given to patient. Patient denied further known discharge needs at this time. . Patient reports the [facility] will transport him/her home at time of discharge. CM will continue to follow and will assist as needed with dc plans/needs. Elin Eastno RN, [facility] DCPIA - Discharge Planning Initial Assessment Updated by [email or web address]: Elin Easton on 08/31/19 3:05 pm * Is the patient Alert and Oriented? Yes * How many steps to enter\exit or inside your home? none * PCP Dr. Nunes * Preadmission Environment Snf Facility * Facility Name The [facility] signed in the ER for return at [place]. * ADLs Partial Dependent * Partial ADLs (Assistance needed) Ambulation Bathing Medication Management Transfers * Equipment Rolling Walker Shower Chair * List name and contact numbers for known caregivers / representatives who currently or will assist patient after discharge: Kellie walker-daughter - [phone] * Verbal permission to speak to the caregivers and representatives has been obtained from the patient. Yes * Community resources currently utilized Other * Additional services required to return to the preadmission environment? No * Can the patient safely return to the preadmission environment? Yes * Has this patient been hospitalized within the prior 30 days at any hospital? Yes Coverage Notice Reviewer: [id number] - Oscar Velarde Notice Issued Date-Time: 09/03/2019 14:10 Notice Type: IM Discharge Notice Notice Delivered To: Patient Relationship to Patient: Crematory Operator Name: Delivery Method: HAND - Hand Delivered Kimberly Days: Prior Verbal Notification: Recipient Understood Notice: Yes Recipient Signature: Yes Med Rec Note Co-signed by Attending: Coverage Notice Comment: Last DP export: 09/03/19 2:24 p Patient Name: PATRIC BATESADEE Page [phone] at 1532 All edits/amendments must be made on the electronic document DICTATION DATE: 09/03/191531 HIDE MEASURING MACHINE OPERATOR: KERMIT 09/03/191531 RPT#: [id number] DC DATE: STATUS: ADM IN [facility] [address] [place] [address] END OF REPORT
[2019-09-03 16:03] VITALS: BP 124/64
--- NOTE | 2019-09-03 19:10 | NUR ---
BEDSIDE REPORT RECEIVED FROM DAY SHIFT, PT CARE ASSUMED. INTRODUCED SELF AND WROTE NAME ON BOARD. PT LYING IN BED WITH EYES CLOSED, RR EVEN AND NONLABORED, NO S/S OF DISTRESS, AROUSES EASILY TO VOICE. DENIES PAIN OR ANY OTHER NEEDS AT THIS TIME. BED IN LOWEST POSITION, SR X2, CALL LIGHT WTIHIN REACH. WILL CONTINUE TO MONITOR.
[2019-09-03 20:00] VITALS: BP 134/76
--- NOTE | 2019-09-03 21:17 | NUR ---
FSBS 125, NO INSULIN NEEDED, PER SLIDING SCALE. NIGHT TIME MEDS ADMINISTERED, PER ORDER. OFFERED PT SNACK, PT ACCEPTED. DENIES ANY OTHER NEEDS AT THIS TIME. BED IN LOWEST POSITION, SR X2, CALL LIGHT WITHIN REACH. WILL CONTINUE TO MONITOR.
[2019-09-04] VITALS: BP 136/72
[2019-09-04 04:24] VITALS: BP 160/97
[2019-09-04] MEDS ORDERED: LIPITOR20 MG PO (08:34)
[2019-09-04] MEDS ORDERED: EFFEXOR25 MG PO (08:35)
[2019-09-04] MEDS ORDERED: RENAGEL800 MG PO (08:36)
[2019-09-04] MEDS ORDERED: LEVOTHYROXINE125 MCG PO (08:36)
[2019-09-04] MEDS ORDERED: NEPHRO-VITE RX1 TAB PO (08:37)
[2019-09-04 09:12] VITALS: BP 144/85
--- NOTE | 2019-09-04 09:35 | NUR ---
PT TRANSPORTED TO DIALYSIS VIA BED.
--- NOTE | 2019-09-04 09:51 | NUR ---
I have reviewed this patient and I concur with the Shift Assessment completed by the Licensed Practical Nurse today this shift.
--- NOTE | 2019-09-04 11:18 | MORECARE ---
CASE MANAGEMENT DISCHARGE SUMMARY PATIENT: SOTO BATES UNIT: [id number] ADM DATE: 08/31/19 AGE: 73 : 47 SEX: F ROOM/BED: D.8063 AUTHOR: MARYSOL SAL PHYSICIAN: REFERRING PHYSICIAN: SRINIVASA JAIME MD DATE OF SERVICE: 09/04/19 Discharge Plan Patient Name: SOTO BATES Facility: [facility]:[place] : 1945 Planned Disposition: Correction Facility Anticipated Discharge Date: 09/04/19 Discharge Date: Expected LOS: 4 Initial Reviewer: [email or web address] Initial Review Date: 08/31/2019 Generated: 09/04/19 12:17 pm Comments DCP- Discharge Planning Updated by [email or web address]: Oscar Velarde on 09/03/19 2:[address] Patient Name: SOTO BATES Encounter No: [id number] : 1945 Primary Insurance: MEDICARE A & B Anticipated DC Date: 09-04-2019 Planned Disposition: Correction Facility External Planned Provider: [facility], MEDICARE REHAB BED DCP follow-up note: CM RECEIVED DISCHARGE PLANNING ORDER, SPOKE TO PT IN ROOM REGARDING DISCHARGE PLANNING. PT REPORTS PLAN TO RETURN TO THE [facility] FOR CONTINUED REHAB. IMPORTANT MESSAGE FROM MEDICARE PROVIDED AND DISCUSSED. CM REVIEWED CHART, PT HAS NOT HAD PHYSICAL THERAPY EVALUATION AND WILL REQUIRE THIS FOR RESIDENTIAL REHAB RETURN. ORDER OBTAINED. CM FAXED UPDATE TO THE [facility] VIA [employer] AT [phone]. FOR DISCHARGE TO THE [facility], FAX DISCHARGE INFORMATION TO THE [facility] AT [phone]; NURSE REPORT TO BE CALLED TO THE [facility] AT [phone]. THE [facility] TO ARRANGE VAN TRANSPORATION. [place] DCP- Discharge Planning Updated by [id number]: Elin Easton on 08/31/19 2:[address] DC PLAN: Return to the [facility] ANTICIPATED DC NEEDS: No further dc needs. CM met with patient to complete initial dc planning assessment. CM educated patient on the CM role and verbal consent given by patient to complete assessment. CM verified patient's address, phone number, and emergency contact phone numbers. [facility] At discharge patient plans to return to [facility] and feels this is a safe discharge. GABRIELA form signed by patient for return to [facility]. Signed form placed in chart and signed form given to patient. Patient denied further known discharge needs at this time. . Patient reports the [facility] will transport him/her home at time of discharge. CM will continue to follow and will assist as needed with dc plans/needs. Elin Easton RN, [facility] DCPIA - Discharge Planning Initial Assessment Updated by [email or web address]: Elin Easton on 08/31/19 3:05 pm * Is the patient Alert and Oriented? Yes * How many steps to enter\exit or inside your home? none * PCP Dr. Nunes * Preadmission Environment Correction Facility * Facility Name The [facility] GABRIELA signed in the ER for return at [place]. * ADLs Partial Dependent * Partial ADLs (Assistance needed) Ambulation Bathing Medication Management Transfers * Equipment Rolling Walker Shower Chair * List name and contact numbers for known caregivers / representatives who currently or will assist patient after discharge: Kellie Bustillo grand-daughter - [phone] * Verbal permission to speak to the caregivers and representatives has been obtained from the patient. Yes * Community resources currently utilized Other * Additional services required to return to the preadmission environment? No * Can the patient safely return to the preadmission environment? Yes * Has this patient been hospitalized within the prior 30 days at any hospital? Yes External Providers External Provider: [facility] Next Contact Date: 09/03/2019 Service Request Date: Service Type: Resolution: Reviewer: Comments: Coverage Notice Reviewer: [id number] - Oscar Velarde Notice Issued Date-Time: 09/03/2019 14:10 Notice Type: IM Discharge Notice Notice Delivered To: Patient Relationship to Patient: Industrial Equipment Mechanic Name: Delivery Method: HAND - Hand Delivered Kimberly Days: Prior Verbal Notification: Recipient Understood Notice: Yes Recipient Signature: Yes Med Rec Note Co-signed by Attending: Coverage Notice Comment: Last DP export: 09/03/19 2:32 p Patient Name: SUIT, NONDADEE Page [id number] at 1118 All edits/amendments must be made on the electronic document DICTATION DATE: 09/04/191116 IS CONSULTANT: KERMIT 09/04/191116 RPT#: [id number] DC DATE: STATUS: ADM IN [facility] [address] [place] [address] END OF REPORT
--- NOTE | 2019-09-04 11:34 | NUR ---
Rehab Note- Acute Inpatient Rehab prescreen received. The patient has recently been in our acute inpatient rehab & was discharged to [facility]. Would recommend discharge back to SNF bed when medically stable & ready for discharge. Thank you for this referral! Marisel Snow RN Clinical Liaison, [facility] Rehab
[2019-09-04 14:01] LABS: BASOPHILS 0.6 % (0-2); EOSINOPHILS 1.9 % (0-7); HEMATOCRIT 34.8 % (36.0-48.0); HEMOGLOBIN 10.4 g/dL (12-16); LYMPHOCYTES 9.3 % (15-50); MCHC 29.9 g/dL (31.0-37.0); MCV 103.6 fL (80.0-100.0); MEAN PLATELET VOLUME 11.4 fL (7.4-10.4); MONOCYTES 6.4 % (2-11); NEUTROPHILS 80.8 % (40-80); PLATELET COUNT 155 10x3/uL (130-400); RBC 3.36 10x6/uL (4.00-5.40); RDW 17.8 % (11.5-14.5)
--- NOTE | 2019-09-04 14:08 | MORECARE ---
CASE MANAGEMENT DISCHARGE SUMMARY PATIENT: SOTO BATES UNIT: [id number] ADM DATE: 08/31/19 AGE: 73 : [birth year] SEX: F ROOM/BED: D.1198 AUTHOR: MARYSOL SAL PHYSICIAN: REFERRING PHYSICIAN: SRINIVASA JAIME MD DATE OF SERVICE: 09/04/19 Discharge Plan Patient Name: PAULO, NONDADEE Facility: [facility] : 1945 Planned Disposition: [facility] Facility Anticipated Discharge Date: 09/04/19 Discharge Date: Expected LOS: 4 Initial Reviewer: [id number] Initial Review Date: 08/31/2019 Generated: 09/04/19 3:07 pm Comments DCP- Discharge Planning Updated by [email or web address]: Oscar Velarde on 09/04/19 1:[address] Patient Name: SOTO BTAES Encounter No: [id number] : 1945 Primary Insurance: MEDICARE A & B Anticipated DC Date: 09-04-2019 Planned Disposition: [facility] Facility External Planned Provider: [facility], MEDICARE REHAB BED DCP follow-up note: CM RECEIVED INPATIENT REHAB PRESCREEN ORDER WELL ORDER FOR NURSING FACILITY IF NOT QUALIFY FOR REHAB. PT IS IN REHAB AT [facility] WITH PLANS TO RETURN. CM DISCHARGE, NOTIFIED SHI, [facility], . CM NOTIFIED PT WHO IS IN AGREEMENT WITH DISCHARGE PLAN TO RETURN TO REHAB AT [facility]. CM NOTIFIED BA OF INPATIENT REHAB OF PT'S DECISION FOR CONTINUED REHAB AT THE [facility]. CM RECEIVED THERAPY EVALUATION RESULTS AND FAXED RESULTS AND DISCHARGE INFORMATION TO THE [facility], , NURSE REPORT TO BE CALLED TO [facility] AT [phone]. THE [facility] TO ARRANGE VAN PROTECTION CONSULTANT. [place] Diaz DCP- Discharge Planning Updated by [id number]: Oscar Velarde on 09/03/19 2:[address] Patient Name: SOTO BATES Encounter No: [id number] : 1945 Primary Insurance: MEDICARE A & B Anticipated DC Date: 09-04-2019 Planned Disposition: [facility] Facility External Planned Provider: [facility], MEDICARE REHAB BED DCP follow-up note: CM RECEIVED DISCHARGE PLANNING ORDER, SPOKE TO PT IN ROOM REGARDING DISCHARGE PLANNING. PT REPORTS PLAN TO RETURN TO THE [facility] FOR CONTINUED REHAB. IMPORTANT MESSAGE FROM MEDICARE PROVIDED AND DISCUSSED. CM REVIEWED CHART, PT HAS NOT HAD PHYSICAL THERAPY EVALUATION AND WILL REQUIRE THIS FOR ALF REHAB RETURN. ORDER OBTAINED. CM FAXED UPDATE TO THE [facility] VIA [employer] AT [phone]. [facility], FAX DISCHARGE INFORMATION TO THE [facility] AT [phone]; NURSE REPORT TO BE CALLED TO THE [facility] AT [phone]. THE [facility] TO ARRANGE VAN TRANSPORATION. Oscar Velarde, CASE MANAGEMENT DCP- Discharge Planning Updated by [id number]: Elin Easton on 08/31/19 2:[address] DC PLAN: Return to the [facility] ANTICIPATED DC NEEDS: No further dc needs. CM met with patient to complete initial dc planning assessment. CM educated patient on the CM role and verbal consent given by patient to complete assessment. CM verified patient's address, phone number, and emergency contact phone numbers. Patient is currently in rehab @[facility]. At discharge patient plans to return to [facility] and feels this is a safe discharge. GABRIELA form signed by patient for return to [facility]. Signed form placed in chart and signed form given to patient. Patient denied further known discharge needs at this time. . Patient reports the [facility] will transport him/her home at time of discharge. CM will continue to follow and will assist as needed with dc plans/needs. Elin Easton RN, [facility] DCPIA - Discharge Planning Initial Assessment Updated by [id number]: Elin Easton on 08/31/19 3:05 pm * Is the patient Alert and Oriented? Yes * How many steps to enter\exit or inside your home? none * PCP Dr. Nunes * Preadmission Environment [facility]ci Facility * Facility Name [facility] signed in the ER for return at [facility]. * ADLs Partial Dependent * Partial ADLs (Assistance needed) Ambulation Bathing Medication Management Transfers * Equipment Rolling Walker Shower Chair * List name and contact numbers for known caregivers / representatives who currently or will assist patient after discharge: Kellie garciadaughter - [phone] * Verbal permission to speak to the caregivers and representatives has been obtained from the patient. Yes * Community resources currently utilized Other * Additional services required to return to the preadmission environment? No * Can the patient safely return to the preadmission environment? Yes * Has this patient been hospitalized within the prior 30 days at any hospital? Yes Coverage Notice Reviewer: [id number] Iwona Velarde Notice Issued Date-Time: 09/03/2019 14:10 Notice Type: IM Discharge Notice Notice Delivered To: Patient Relationship to Patient: Furnace Roaster Name: Delivery Method: HAND - Hand Delivered Kimberly Days: Prior Verbal Notification: Recipient Understood Notice: Yes Recipient Signature: Yes Med Rec Note Co-signed by Attending: Coverage Notice Comment: Last DP export: 09/04/19 10:18 a Patient Name: PATRIC BATESADEE Page [phone] at 1408 All edits/amendments must be made on the electronic document DICTATION DATE: 09/04/191406 DIRECTOR MICROBIOLOGY: KERMIT 09/04/191406 RPT#: [id number] DC DATE: STATUS: ADM IN [facility] [address] [place] [address] END OF REPORT
[2019-09-04 14:15] LABS: ANION GAP 8.7 mmol/L (8-16); CALCIUM 8.2 mg/dL (8.5-10.1); CARBON DIOXIDE 34.8 mmol/L (21.0-32.0); CREATININE - SERUM 4.1 mg/dL (0.6-1.3); PHOSPHOROUS 4.5 mg/dL (2.5-4.9)
[2019-09-04 14:16] LABS: POTASSIUM - SERUM 3.5 mmol/L (3.5-5.1)
--- NOTE | 2019-09-04 15:33 | NUR ---
FOAM FABRICATOR FROM THE [facility] SHOWED UP WITHOUT WARNING. PT WAS ASSISTED GETTING DRESSED AND TRANSFERRED TO A WHEELCHAIR X1 ASSIST. IV D/C WITH CATHETER TIP INTACT. FOAM FABRICATOR INFORMED SHE NEEDED TO BE ON 2L NC. STATED HE HAD IT IN THE VAN AND WOULD HOOK HER UP SOON HE GOT HER DOWN THERE. D/C PAPERWORK REVIEWED WITH PT AND SIGNED. VERBALIZED UNDERSTANDING. MONITOR REMOVED AND RETURNED TO WINTERIZER. PT LEFT WITH FOAM FABRICATOR. REPORT CALLED TO LLUVIA AT [facility].
== END 2019-09-04 16:14 | DRG 291 ==
LOC: D.ER 10:01 → D.M2 14:03
PROVIDERS: Family Medicine; ADMIT Internal Medicine Nephrology; ATTEND Internal Medicine Nephrology
PROC: 5A1D70Z Performance of Urinary Filtration, Intermittent, Less than 6 Hours Per Day (ICD-10-PCS; principal; 2019-08-31)
DX: I13.2 Hypertensive heart and chronic kidney disease with heart failure and with stage 5 chronic kidney disease, or end stage renal disease (principal); J18.9 Pneumonia, unspecified organism; N18.6 End stage renal disease; E11.22 Type 2 diabetes mellitus with diabetic chronic kidney disease; I50.9 Heart failure, unspecified; Z99.2 Dependence on renal dialysis; E87.5 Hyperkalemia; D63.1 Anemia in chronic kidney disease; E03.9 Hypothyroidism, unspecified; I48.91 Unspecified atrial fibrillation

== ENCOUNTER 2019-09-27 21:30 | Inpatient (IN) | payer MEDICARE, OTHER ==
[~2019-09-27] VITALS: Ht 175.3 cm; Wt 96.2 kg
[~2019-09-27 21:30] MED LIST changes: +EFFEXOR25 MG PO; +LEVOTHYROXINE125 MCG PO; +LEVOXYL100 MCG PO; +LIPITOR20 MG PO; +NEPHRO-VITE RX1 TAB PO; +RENAGEL800 MG PO
[2019-09-27 22:06] LABS: BASOPHILS 0.3 % (0-2); EOSINOPHILS 0.1 % (0-7); HEMATOCRIT 47.8 % (36.0-48.0); HEMOGLOBIN 14.3 g/dL (12-16); IMMATURE GRANULOCYTES 0.9 % (0-5); LYMPHOCYTES 8.5 % (15-50); MCH 31.8 pg (26.0-34.0); MCHC 29.9 g/dL (31.0-37.0); MCV 106.5 fL (80.0-100.0); MEAN PLATELET VOLUME 11.9 fL (7.4-10.4); MONOCYTES 7.8 % (2-11); NEUTROPHILS 82.4 % (40-80); PLATELET COUNT 106 10x3/uL (130-400); RBC 4.49 10x6/uL (4.00-5.40); RDW 18.9 % (11.5-14.5); WBC 7.6 10x3/uL (4.8-10.8)
[2019-09-27 22:15] LABS: APTT 30.4 SECONDS (22.8-39.4); INR 1.57 (0.85-1.17); PROTIME 18.2 SECONDS (11.6-15.0)
[2019-09-27] MEDS ORDERED: LASIX40 MG PO (22:15)
[2019-09-27 22:16] LABS: D-DIMER-QUANTITATIVE 2.72 ug/mLFEU (0.20-0.54)
[2019-09-27 22:46] VITALS: BP 153/120
[2019-09-27 22:47] LABS: ALBUMIN 3.1 g/dL (3.4-5.0); ALKALINE PHOSPHATASE 139 U/L (46-116); ALT (SGPT) 36 U/L (10-68); BILIRUBIN - TOTAL 1.09 mg/dL (0.2-1.3); CALCIUM 8.2 mg/dL (8.5-10.1); CARBON DIOXIDE 24.3 mmol/L (21.0-32.0); CHLORIDE - SERUM 94 mmol/L (98-107); CKMB 1.6 U/L (0.0-3.6); CREATINE KINASE 80 UL (21-215); CREATININE - SERUM 6.2 mg/dL (0.6-1.3); MAGNESIUM - SERUM 2.1 mg/dL (1.8-2.4); PROTEIN - SERUM 7.4 g/dL (6.4-8.2); SODIUM 132 mmol/L (136-145); TROPONIN-I 0.039 ng/mL (0.000-0.060); UREA NITROGEN 50 mg/dL (7-18); eGFR NON AFRICAN AMERICAN 7 mL/min (90-120)
[2019-09-27 22:48] LABS: CALC OSMOLALITY 281 mosm/kg (275-300); GLUCOSE 179 mg/dL (74-106); PRO BNP 35303 pg/mL (0-125)
[2019-09-27 22:49] LABS: POTASSIUM - SERUM 6.3 mmol/L (3.5-5.1)
[2019-09-27 23:19] LABS: APPEARANCE CLOUDY (CLEAR); BILIRUBIN NEGATIVE (NEGATIVE); COLOR DK YELLOW (YELLOW); GLUCOSE NEGATIVE (NEGATIVE); KETONE NEGATIVE (NEGATIVE); NITRITE NEGATIVE (NEGATIVE); PROTEIN 3+ mg/dL (NEGATIVE); SPECIFIC GRAVITY 1.015 (1.005-1.020); UROBILINOGEN NORMAL (NORMAL)
[2019-09-27 23:20] VITALS: BP 128/62
[2019-09-27 23:21] LABS: BACTERIA MANY /hpf (NEGATIVE); EPITHELIAL CELLS 0-5 /hpf (0-5); RED CELLS - URINE 0-5 /hpf (0-5); WHITE CELLS - URINE 25-50 /hpf (NEGATIVE)
--- NOTE | 2019-09-27 23:25 | NUR ---
PT TO CT.
--- NOTE | 2019-09-27 23:50 | NUR ---
PT RETURNED FROM CT.
[2019-09-28] VITALS (13 sets, daily range): BP systolic 114–176; BP diastolic 61–90; BMI 31.3
--- NOTE | 2019-09-28 02:20 | NUR ---
Received patient from ER via Stretcher to [id number], connected to monitor and assessment completed per flowsheet. Patient AO x4, answers appropriately/follows instrutions. S1/S2 noted NSR with 1st degree block on telemetry, rythmic and regular. Breathing is shallow on room air with O2 sat 94%, lung sounds clear bilateral upper and mid with diminished lower. Abdomen is soft/flat with bowel sounds active x4, non-tender. All pulses palpable with skin cool/dry, full ROM all extremities. Denies pain or other needs at this time, see flowsheet for details. All VSS and will continue to monitor.
[2019-09-28] MEDS ORDERED: FUROSEMIDE40 MG PO (02:31)
[2019-09-28] MEDS ORDERED: NORVASC10 MG PO (02:50)
[2019-09-28] MEDS ORDERED: LIPITOR80 MG PO (02:51)
[2019-09-28] MEDS ORDERED: K-DUR20 MEQ PO (02:52)
[2019-09-28] MEDS ORDERED: ROCALTROL0.25 MCG PO (02:52)
[2019-09-28] MEDS ORDERED: ROPINIROLE HCL0.5 MG PO (02:53)
[2019-09-28] MEDS ORDERED: SYNTHROID50 MCG PO (02:54)
[2019-09-28] MEDS ORDERED: COZAAR100 MG PO (02:55)
[2019-09-28] MEDS ORDERED: GLUCOTROL XL 1010 MG PO (02:55)
[2019-09-28] MEDS ORDERED: EFFEXOR37.5 MG (02:56)
[2019-09-28] MEDS ORDERED: ZETIA10 MG PO (02:57)
[2019-09-28] MEDS ORDERED: OS-CAL500 MG PO (03:02)
[2019-09-28] MEDS ORDERED: COLACE100 MG PO (03:04)
[2019-09-28] MEDS ORDERED: NIZORAL 2 % SH120 ML TOPICAL (03:06)
[2019-09-28] MEDS ORDERED: MELATONIN 3 MG1 TAB PO (03:06)
[2019-09-28] MEDS ORDERED: SENSIPAR30 MG PO (03:08)
--- NOTE | 2019-09-28 03:45 | NUR ---
Commercial Sales Manager on unit to collect 0130 timed Lactic, instructed by RN to collect with AM labs scheduled. No fluids ordered/given at this time, all VSS and will continue to monitor.
--- NOTE | 2019-09-28 05:00 | NUR ---
Patient sleeping in bed with eyes closed, no s/s of distress at this time. Repositioned for comfort, no further needs and will continue to monitor.
[2019-09-28 06:36] LABS: ALBUMIN 2.9 g/dL (3.4-5.0); ANION GAP 17.2 mmol/L (8-16); BILIRUBIN - TOTAL 1.09 mg/dL (0.2-1.3); CALCIUM 8.2 mg/dL (8.5-10.1); CARBON DIOXIDE 25.3 mmol/L (21.0-32.0); CREATININE - SERUM 6.2 mg/dL (0.6-1.3); POTASSIUM - SERUM 5.5 mmol/L (3.5-5.1); PROTEIN - SERUM 6.7 g/dL (6.4-8.2)
[2019-09-28 06:42] LABS: APTT 31.3 SECONDS (22.8-39.4); INR 1.71 (0.85-1.17); PROTIME 19.4 SECONDS (11.6-15.0)
[2019-09-28 06:46] LABS: BASOPHILS 0.1 % (0-2); EOSINOPHILS 0 % (0-7); HEMATOCRIT 41.7 % (36.0-48.0); HEMOGLOBIN 12.7 g/dL (12-16); IMMATURE GRANULOCYTES 0.4 % (0-5); LYMPHOCYTES 3.1 % (15-50); MCH 32.2 pg (26.0-34.0); MCHC 30.5 g/dL (31.0-37.0); MCV 105.6 fL (80.0-100.0); MEAN PLATELET VOLUME 10.6 fL (7.4-10.4); MONOCYTES 8.4 % (2-11); PLATELET COUNT 109 10x3/uL (130-400); RBC 3.95 10x6/uL (4.00-5.40)
[2019-09-28 06:47] LABS: WBC 14.5 10x3/uL (4.8-10.8)
--- NOTE | 2019-09-28 07:15 | NUR ---
PT RESTING IN BED, FAMILY AT BEDSIDE, SHIFT ASSESSMENT PERFORMED. VSS AND WNL. DENIES ANY NEEDS AT THIS TIME. WILL CONT TO FOLLOW POC
--- NOTE | 2019-09-28 08:00 | NUR ---
PT RESTING IN BED EATING BREAKFAST. CALL LIGHT WITHIN REACH, DENIES ANY NEEDS AT THIS TIME, WILL CONT TO FOLLOW POC
--- NOTE | 2019-09-28 08:50 | NUR ---
HERE. NOTIFIED NURSE THAT PT IS STABLE AND CAN BE TRANSFERRED TO THE FLOOR. PT IS ON RA AND O2 SAT IS 99%. PT IS ALERT AND ANSWERING ALL QUESTIONS. CALL LIGHT WITHIN REACH. WILL CONT TO FOLLOW POC
--- NOTE | 2019-09-28 10:02 | NUR ---
PT RESTING IN BED. VSS AND WNL. CALL LIGHT WITHIN REACH. AWAITING ROOM NUMBER AT THIS TIME. WILL CONT TO FOLLOW POC
--- NOTE | 2019-09-28 10:20 | NUR ---
NOTIFIED DUE TO PT HAVING LOVENOX AND ELIQUIS ORDERED. PER , GIVE 1 DOSE OF LOVENOX THEN D/C LOVENOX.
--- NOTE | 2019-09-28 11:23 | NUR ---
REPORT GIVEN TO RADHA CRAMER ON MED 2
--- NOTE | 2019-09-28 11:48 | NUR ---
PATIENT ARRIVED FROM ICU TO THE FLOOR. SHE IS AWAKE AND ALERT. DENIES ANY NEEDS AT THIS TIME. WILL CHECK ORDERS AND FOLLOW ACCORDINGLY. PATIENT SHOULD BE GOING TO DIALYSIS TODAY.
--- NOTE | 2019-09-28 19:32 | NUR ---
ASSESSMENT COMPLETE. PT A&O, RESPERATIONS EVEN ON RA. IV TO RIGHT HAND AND RIGHT AC SL. AVF NOTED TO LEFT ARM (+,+). PT DENIES PAIN OR NEEDS, BED LOW, CL IN REACH.
--- NOTE | 2019-09-28 21:19 | NUR ---
HS MEDS GIVEN WITH FRESH ICE WATER. PT DENIES PAIN OR NEEDS.
[2019-09-29] VITALS: BP 134/74
--- NOTE | 2019-09-29 03:38 | NUR ---
RESTING WITH EYES CLOSED, RESPERATIONS EVEN, NO S/S DISTRESS NOTED.
[2019-09-29 04:00] VITALS: BP 140/82
[2019-09-29 05:08] LABS: BASOPHILS 0.3 % (0-2); EOSINOPHILS 1.2 % (0-7); HEMATOCRIT 41.7 % (36.0-48.0); IMMATURE GRANULOCYTES 0.4 % (0-5); LYMPHOCYTES 7.8 % (15-50); MCH 32.3 pg (26.0-34.0); MCHC 31.2 g/dL (31.0-37.0); MEAN PLATELET VOLUME 11.4 fL (7.4-10.4); MONOCYTES 8.2 % (2-11); NEUTROPHILS 82.1 % (40-80); RBC 4.03 10x6/uL (4.00-5.40); RDW 18.9 % (11.5-14.5)
[2019-09-29 05:18] LABS: ANION GAP 13.7 mmol/L (8-16); CALCIUM 7.4 mg/dL (8.5-10.1); CARBON DIOXIDE 28.2 mmol/L (21.0-32.0); CREATININE - SERUM 5.1 mg/dL (0.6-1.3); POTASSIUM - SERUM 4.9 mmol/L (3.5-5.1)
[2019-09-29 05:39] LABS: MCV 103.5 fL (80.0-100.0); PLATELET COUNT 77 10x3/uL (130-400); WBC 9.3 10x3/uL (4.8-10.8)
[2019-09-29 06:31] LABS: PLATELET ESTIMATE DECREASED
--- NOTE | 2019-09-29 07:07 | NUR ---
REPORT RECEIVED. WILL CONTINUE WITH POC. PT CURRENTLY LYING SUPINE. CALL LIGHT W/I REACH. RR EVEN AND UNLABORED ON RA. R.AC PIV AND R.HAND PIV IS SALINE LOCKED. NO S/S OF DISTRESS NOTED. PT IS AAO AND UP WITH ASSIST. PT DENIES ANY NEEDS AT THIS TIME. WILL CTM.
[2019-09-29 12:05] VITALS: BP 137/76
--- NOTE | 2019-09-29 13:47 | MORECARE ---
CASE MANAGEMENT DISCHARGE SUMMARY PATIENT: SOTO BATES UNIT: [id number] ADM DATE: 09/28/19 AGE: 74 : 46 SEX: F ROOM/BED: D.2130 AUTHOR: MARYSOL SAL PHYSICIAN: REFERRING PHYSICIAN: RASHEED HEARD MD DATE OF SERVICE: 09/29/19 Discharge Plan Patient Name: SOTO BATES [facility] [facility] 1945 Planned Disposition: Prison Facility Anticipated Discharge Date: Discharge Date: Expected LOS: Initial Reviewer: [id number] Initial Review Date: 09/29/2019 Generated: 09/29/19 2:47 pm DCPIA - Discharge Planning Initial Assessment Updated by [email or web address]: Oscar Velarde on 09/29/19 1:43 pm * Is the patient Alert and Oriented? Yes * How many steps to enter\exit or inside your home? NONE * PCP DR. WILLAMS * Pharmacy [facility] [place] * Preadmission Environment Prison Facility * Facility Name [facility] * ADLs Partial Dependent * Partial ADLs (Assistance needed) Ambulation Bathing Medication Management * Equipment Bedside Commode Glucometer Nebulizer Rolling Walker Shower Chair Wheelchair * Other Equipment [employer] - MEDICAL EQUIPMENT PROVIDER PREFERENCE * List name and contact numbers for known caregivers / representatives who currently or will assist patient after discharge: ALFREDO HUA, GRAND DAUGHTER, * Verbal permission to speak to the caregivers and representatives has been obtained from the patient. N/A * Community resources currently utilized None * Please name any agencies selected above. NONE * Additional services required to return to the preadmission environment? No * Can the patient safely return to the preadmission environment? Yes * Has this patient been hospitalized within the prior 30 days at any hospital? Yes Patient Name: SOTO BATES Page [phone] at 1347 All edits/amendments must be made on the electronic document DICTATION DATE: 09/29/19 1347 TECHNICAL SERVICES CONSULTANT: KERMIT 09/29/19 1347 RPT#: [id number] DC DATE: STATUS: ADM IN [facility] [address] [place] [address] END OF REPORT
--- NOTE | 2019-09-29 13:55 | MORECARE ---
CASE MANAGEMENT DISCHARGE SUMMARY PATIENT: PATRIC BATESADEE UNIT: [id number] ADM DATE: 09/28/19 AGE: 74 : 46 SEX: F ROOM/BED: D.2130 AUTHOR: MARYSOL SAL PHYSICIAN: REFERRING PHYSICIAN: RASHEED HEARD MD DATE OF SERVICE: 09/29/19 Discharge Plan Patient Name: PAULO, NONDADEE Facility: [facility]:[place] : 1945 Planned Disposition: Intermediate Facility Anticipated Discharge Date: Discharge Date: Expected LOS: Initial Reviewer: [id number] Initial Review Date: 09/29/2019 Generated: 09/29/19 2:55 pm Comments DCP- Discharge Planning Updated by [id number]: Oscar Velarde on 09/29/19 12:[address] Patient Name: NONDADEE Rosalinda BATES Admission Status: ER Accout number: [id number] Admission Date: 09-28-2019 : 1945 Admission Diagnosis: Attending: RASHEED HEARD Current LOS: 1 Anticipated DC Date: Planned Disposition: Intermediate Facility Primary Insurance: MEDICARE A & B PLANNED EXTERNAL PROVIDER: [facility], MEDICARE REHAB BED Discharge Planning Comments: CM MET WITH PT IN ROOM TO DISCUSS DISCHARGE PLANNING AND NEEDS. PT REPORTS SHE WAS LIVING AT HOME INDEPENDENTLY BUT HAS BEEN AT THE [facility] FOR REHAB. PT HAS NO Bedside Commode, Glucometer, Nebulizer, Rolling Walker, Shower Chair AND A Wheelchair FROM [facility] AT HOME. CM DISCUSSED AVAILABILITY OF HOME HEALTH, REHAB SERVICES AND MEDICAL EQUIPMENT. PT PLANS TO RETURN TO THE [facility] FOR CONTINUED REHAB AT DISCHARGE. CHOICE SIGNED. CM NOTIFIED ISABELL ALCALA OF THE [facility], . CM FAXED UPDATE TO THE [facility] VIA ISABELL AT [phone]. FOR DISCHARGE, FAX DISCHARGE INFORMATION TO THE [facility], , NURSE REPORT TO BE CALLED TO THE [facility] AT [phone]. THE [facility] TO ARRANGE VAN INSURANCE INVESTIGATOR. Adjunct Faculty For Medical Terminology: Oscar Velarde DCPIA - Discharge Planning Initial Assessment Updated by [id number]: Oscar Velarde on 09/29/19 1:43 pm * Is the patient Alert and Oriented? Yes * How many steps to enter\exit or inside your home? NONE * PCP DR. WILLAMS * Pharmacy [facility] [place] * Preadmission Environment Intermediate Facility * Facility Name [facility] * ADLs Partial Dependent * Partial ADLs (Assistance needed) Ambulation Bathing Medication Management * Equipment Bedside Commode Glucometer Nebulizer Rolling Walker Shower Chair Wheelchair * Other Equipment [employer] - MEDICAL EQUIPMENT PROVIDER PREFERENCE * List name and contact numbers for known caregivers / representatives who currently or will assist patient after discharge: ALFREDO HUA, GRAND DAUGHTER, * Verbal permission to speak to the caregivers and representatives has been obtained from the patient. N/A * Community resources currently utilized None * Please name any agencies selected above. NONE * Additional services required to return to the preadmission environment? No * Can the patient safely return to the preadmission environment? Yes * Has this patient been hospitalized within the prior 30 days at any hospital? Yes External Providers External Provider: [facility] Next Contact Date: 09/29/2019 Service Request Date: Service Type: Resolution: Reviewer: Comments: Coverage Notice Reviewer: [id number] - Oscar [place] Notice Issued Date-Time: 09/29/2019 13:30 Notice Type: Patient Choice Letter Notice Delivered To: Patient Relationship to Patient: Supervisor Prop Making Name: Delivery Method: HAND - Hand Delivered Kimberly Days: Prior Verbal Notification: Recipient Understood Notice: Yes Recipient Signature: Yes Med Rec Note Co-signed by Attending: Coverage Notice Comment: [facility] Last DP export: 09/29/19 12:47 Patient Name: PAULO, PATRICADEE Page [phone] at 1355 All edits/amendments must be made on the electronic document DICTATION DATE: 09/29/19 1355 MACHINE DEICER ELEMENT WINDER: KERMIT 09/29/19 135 RPT#: [id number] DC DATE: STATUS: ADM IN [facility] [address] [facility] [place] [address] END OF REPORT
--- NOTE | 2019-09-29 14:05 | MORECARE ---
CASE MANAGEMENT DISCHARGE SUMMARY PATIENT: PATRIC BATESADEE UNIT: [id number] ADM DATE: 09/28/19 AGE: 74 : 46 SEX: F ROOM/BED: D.2130 AUTHOR: MARYSOL SAL PHYSICIAN: REFERRING PHYSICIAN: RASHEED HEARD MD DATE OF SERVICE: 09/29/19 Discharge Plan Patient Name: PAULO, NONDADEE Facility: [facility]:[place] : 1945 Planned Disposition: Jail Facility Anticipated Discharge Date: Discharge Date: Expected LOS: Initial Reviewer: [id number] Initial Review Date: 09/29/2019 Generated: 09/29/19 3:04 pm Comments DCP- Discharge Planning Updated by [id number]: Oscar Velarde on 09/29/19 12:[address] Patient Name: NONDADEE Rosalinda BATES Admission Status: ER Accout number: [id number] Admission Date: 09-28-2019 : 1945 Admission Diagnosis: Attending: RASHEED HEARD Current LOS: 1 Anticipated DC Date: Planned Disposition: Jail Facility Primary Insurance: MEDICARE A & B PLANNED EXTERNAL PROVIDER: [facility], MEDICARE REHAB BED Discharge Planning Comments: CM MET WITH PT IN ROOM TO DISCUSS DISCHARGE PLANNING AND NEEDS. PT REPORTS SHE WAS LIVING AT HOME INDEPENDENTLY BUT HAS BEEN AT THE [facility] FOR REHAB. PT HAS NO Bedside Commode, Glucometer, Nebulizer, Rolling Walker, Shower Chair AND A Wheelchair FROM [facility] AT HOME. CM DISCUSSED AVAILABILITY OF HOME HEALTH, REHAB SERVICES AND MEDICAL EQUIPMENT. PT PLANS TO RETURN TO THE [facility] FOR CONTINUED REHAB AT DISCHARGE. CHOICE SIGNED. CM NOTIFIED ISABELL ALCALA OF THE [facility], . CM FAXED UPDATE TO THE [facility] VIA ISABELL AT [phone]. FOR DISCHARGE, FAX DISCHARGE INFORMATION TO THE [facility], , NURSE REPORT TO BE CALLED TO THE [facility] AT [phone]. THE [facility] TO ARRANGE VAN TAG MACHINE OPERATOR. Process Eng: Oscar Velarde DCPIA - Discharge Planning Initial Assessment Updated by [id number]: Oscar Velarde on 09/29/19 1:57 pm * Is the patient Alert and Oriented? Yes * How many steps to enter\exit or inside your home? NONE * PCP DR. WILLAMS * Pharmacy [facility] [place] * Preadmission Environment Jail Facility * Facility Name [facility] * ADLs Partial Dependent * Partial ADLs (Assistance needed) Ambulation Bathing Medication Management * Equipment Bedside Commode Glucometer Nebulizer Rolling Walker Shower Chair Wheelchair * Other Equipment [employer] - MEDICAL EQUIPMENT PROVIDER PREFERENCE * List name and contact numbers for known caregivers / representatives who currently or will assist patient after discharge: ALFREDO HUA, GRAND DAUGHTER, * Verbal permission to speak to the caregivers and representatives has been obtained from the patient. N/A * Community resources currently utilized Other * Please name any agencies selected above. OUTPATIENT DIALYSIS, [facility], [address], [facility] * Additional services required to return to the preadmission environment? No * Can the patient safely return to the preadmission environment? Yes * Has this patient been hospitalized within the prior 30 days at any hospital? Yes Coverage Notice Reviewer: [id number] Iwona Velarde Notice Issued Date-Time: 09/29/2019 13:30 Notice Type: Patient Choice Letter Notice Delivered To: Patient Relationship to Patient: Spot Worker Name: Delivery Method: HAND - Hand Delivered Kimberly Days: Prior Verbal Notification: Recipient Understood Notice: Yes Recipient Signature: Yes Med Rec Note Co-signed by Attending: Coverage Notice Comment: [facility] Last DP export: 09/29/19 12:55 Patient Name: PATRIC BATESADEE Page [phone] at 1405 All edits/amendments must be made on the electronic document DICTATION DATE: 09/29/191403 INTERIOR DECORATOR PAPERHANGING: KERMIT 09/29/191403 RPT#: [id number] DC DATE: STATUS: ADM IN [facility] [address] [place] [address] END OF REPORT
[2019-09-29 14:19] VITALS: Ht 175.3 cm; Wt 96.2 kg
--- NOTE | 2019-09-29 14:33 | NUR ---
RESTING IN BED. RESPIRATIONS NONLABORED. AGREE WITH DUMPER [employer] CONCRETE MIXING PLANT ASSESSMENT. NO SCDs. RECIEVES ELIQUIS. DAVID BELTRÁN RESUMES PLAN OF CARE.
[2019-09-29 16:00] VITALS: BP 153/78
[2019-09-29 20:00] VITALS: BP 118/58
--- NOTE | 2019-09-29 22:21 | NUR ---
PT REFUSED GABAPENTIN STATES IT MAKES HER WEAK AND SLEEPY ALL THE TIME.
[2019-09-30] VITALS: BP 130/67
[2019-09-30 04:00] VITALS: BP 125/55
[2019-09-30 04:31] LABS: BASOPHILS 0.5 % (0-2); EOSINOPHILS 2.2 % (0-7); HEMATOCRIT 40.7 % (36.0-48.0); HEMOGLOBIN 12.4 g/dL (12-16); IMMATURE GRANULOCYTES 0.5 % (0-5); LYMPHOCYTES 9.1 % (15-50); MCH 32.1 pg (26.0-34.0); MCHC 30.5 g/dL (31.0-37.0); MCV 105.4 fL (80.0-100.0); MONOCYTES 8.9 % (2-11); NEUTROPHILS 78.8 % (40-80); RBC 3.86 10x6/uL (4.00-5.40); RDW 18.9 % (11.5-14.5); WBC 8.3 10x3/uL (4.8-10.8)
[2019-09-30 04:39] LABS: PLATELET COUNT 111 10x3/uL (130-400)
[2019-09-30 04:52] LABS: ANION GAP 13.8 mmol/L (8-16); CALCIUM 7.5 mg/dL (8.5-10.1); CARBON DIOXIDE 28.9 mmol/L (21.0-32.0); CREATININE - SERUM 6.2 mg/dL (0.6-1.3); PHOSPHOROUS 4.7 mg/dL (2.5-4.9); POTASSIUM - SERUM 4.7 mmol/L (3.5-5.1)
--- NOTE | 2019-09-30 08:48 | NUR ---
SPOKE WITH CHRISTINE FROM [facility] HE STATES WE DO NOT CARRY ISOSIRBIDE CAPSULE BUT WE CARRY THE TABLETS. I STATED I WOULD CALL AND SPEAK WITH NURSE PRACTIONER.
--- NOTE | 2019-09-30 08:50 | NUR ---
CALLED AND SPOKE WITH DEVAN PHILLIPS ABOUT ISOSORBIDE AND SHE STATES SHE WILL BE HERE IN 10-15 MIN AND WILL LOOK AT MEDS AND ORDER SOMETHING. I VERBALIZED UNDERSTANDING. I ALSO ASKED IF WE COULD UP PT'S DIET AND SHE STATES TO ADVANCE TOLERATED.
--- NOTE | 2019-09-30 09:40 | NUR ---
PT'S RIGHT HAND 20G IV LEAKING. DC'D WITH CATH INTACT. PT STATES SHE IS A HARD STICK AND DOES NOT WANT ANOTHER IV IF POSSIBLE. I VERBALIZED UNDERSTANDING AND STATED TO PT I WILL ASK PUBLIC HEALTH DENTIST. SPOKE WITH DEVAN PHILLIPS AND SHE STATES SHE SUZANNE LLET ME KNOW IF PT NEEDS ANOTER ONE. I VERBALIZED UNDERSTANDING.
--- NOTE | 2019-09-30 10:37 | NUR ---
I have reviewed this patient and I concur with the Shift Assessment completed by the Licensed Practical Nurse today this shift.
--- NOTE | 2019-09-30 12:41 | NUR ---
PT TAKEN DOWN TO DIALYSIS VUA BED.
[2019-09-30 13:01] VITALS: BP 126/63
--- NOTE | 2019-09-30 13:45 | NUR ---
DEVAN PHILLIPS STARTED PT ON ORAL ANTIBIOTIC AND PT DOES NOT NEED AN IV.
--- NOTE | 2019-09-30 13:48 | NUR ---
SPOKE WITH CHRISTINE FROM PHARMACY AND STATED TO HIM PT IS IS DIALYSIS IF HE WILL RETIME OMNICEF FOR 1600. HE STATED HE WOULD.
--- NOTE | 2019-09-30 16:52 | NUR ---
PT RETURNED FROM DIALYSIS VIA BED. DIALYSIS NURSE STATES THEY REMOVED 3L OF FLUID.
--- NOTE | 2019-09-30 18:18 | NUR ---
PT NOT TOLERATING DIET. WILL DECREASE BACK DOWN TO FULL LIQUID DIET. ZOAN ORDERED.
--- NOTE | 2019-09-30 19:42 | NUR ---
PT C/O PAIN TO HIP AND COCCYX, STATES THAT THE SCHEDULED ULTAM ISNT HELPING, GRAND-DAUGHTER AT BED SIDE INSISTING THAT PHYSICIAN BE BE CALLED TO ASK FOR ADDITIONAL PAIN MEDS BECAUSE HER GRANDMOTHER IS IN EXCRUTIATING PAIN. JANAE WEST CALL FOR DR FÉLIX NOEL.
[2019-09-30 20:00] VITALS: BP 126/52
--- NOTE | 2019-09-30 20:09 | NUR ---
NORCO 1 TAB GIVEN FOR C/O PAIN TO HIP AND BUTTOCKS, RATES PAIN AT AN 8 ON PAIN SCALE. EGG CRATE NANCI PLACED ON PTS BED FOR COMFORT.
[2019-10-01] VITALS (7 sets, daily range): BP systolic 123–156; BP diastolic 63–75
[2019-10-01 05:18] LABS: BASOPHILS 0.6 % (0-2); HEMATOCRIT 39.3 % (36.0-48.0); HEMOGLOBIN 11.9 g/dL (12-16); IMMATURE GRANULOCYTES 0.4 % (0-5); LYMPHOCYTES 9.3 % (15-50); MCHC 30.3 g/dL (31.0-37.0); MCV 105.6 fL (80.0-100.0); MEAN PLATELET VOLUME 12.3 fL (7.4-10.4); MONOCYTES 9.9 % (2-11); NEUTROPHILS 76.8 % (40-80); PLATELET COUNT 118 10x3/uL (130-400); RBC 3.72 10x6/uL (4.00-5.40); RDW 19.1 % (11.5-14.5)
[2019-10-01 05:33] LABS: ALBUMIN 2.6 g/dL (3.4-5.0); BILIRUBIN - DIRECT 0.35 mg/dL (0.00-0.30); CALCIUM 7.8 mg/dL (8.5-10.1); CREATININE - SERUM 4.8 mg/dL (0.6-1.3); PROTEIN - SERUM 6.3 g/dL (6.4-8.2)
[2019-10-01 05:55] LABS: BILIRUBIN - INDIRECT 0.25 mg/dL (0.00-1.00); BILIRUBIN - TOTAL 0.6 mg/dL (0.2-1.3)
--- NOTE | 2019-10-01 07:15 | NUR ---
RECEIVED PT IN BED AAOX4 RESP UNLABORED SKIN W/D COLOR WNL DENIES ANY NEEDS OR DISCOMFORT WILL CONTINUE TO MONITOR
--- NOTE | 2019-10-01 13:18 | NUR ---
Nutrition Follow-up: Diet advanced to renal ADA yesterday but pt did not tolerate; downgraded to full liquids. Noted plans for gastric emptying scan. Per MD note, pt with early coccyx wound. Diet: Full Liquid, AAT No new wt Last BM: 10/01 per chart Labs noted: Glu 130, Ca 7.8, Alb 2.6 Meds noted: Lasix, Folate, Glucotrol, Januvia, Renagel, Colace -Rec ADAT to Renal ADA as medically feasible. -Offer Nepro with meals. -Will monitor wt trends and skin integrity. -RD following.
--- NOTE | 2019-10-01 19:24 | NUR ---
RECIEVED BEDSIDE SHIFT REPORT. LAYING IN BED WITH EYES CLOSED. EASILY AROUSES WITH VERBAL STIMULI. ORIENTED X4. REMAINS IN CONTACT ISOLATION. EDEMA TO LOWER EXTREMITIES AND WEEPING. DRESSING TO COCCYX. TELEMETRY IN PLACE. DENIES ANY NEEDS AT THIS TIME.
[2019-10-02 04:00] VITALS: BP 142/68
[2019-10-02 06:36] LABS: BASOPHILS 0.7 % (0-2); HEMATOCRIT 40.1 % (36.0-48.0); HEMOGLOBIN 12.3 g/dL (12-16); IMMATURE GRANULOCYTES 0.3 % (0-5); LYMPHOCYTES 11.7 % (15-50); MCH 32.2 pg (26.0-34.0); MCHC 30.7 g/dL (31.0-37.0); MEAN PLATELET VOLUME 11.7 fL (7.4-10.4); MONOCYTES 9.2 % (2-11); NEUTROPHILS 74.1 % (40-80); PLATELET COUNT 124 10x3/uL (130-400); RBC 3.82 10x6/uL (4.00-5.40); WBC 6.8 10x3/uL (4.8-10.8)
[2019-10-02 06:54] LABS: ANION GAP 13.4 mmol/L (8-16); CALCIUM 7.6 mg/dL (8.5-10.1); CREATININE - SERUM 5.7 mg/dL (0.6-1.3); POTASSIUM - SERUM 4.4 mmol/L (3.5-5.1); VANCOMYCIN - RANDOM 4.6 ug/mL (10.0-20.0)
--- NOTE | 2019-10-02 07:10 | NUR ---
REPORT RECEIVED FROM FIELD RESEARCH ASSOCIATE AND PATIENT CARE ASSUMED. PATIENT LAYING IN BED ON BACK WITH EYES CLOSED AND BREATHING EVENLY. PATIENT IS STABLE AND VSS. PATIENT ON CONTACT ISOLATION FOR URINE MRSA. WILL CONTINUE WITH PLAN OF CARE. SR UP X 2 BED IN LOW POSITION AND CALL LIGHT IN REACH.
[2019-10-02 08:47] VITALS: BP 149/75
--- NOTE | 2019-10-02 08:47 | MORECARE ---
CASE MANAGEMENT DISCHARGE SUMMARY PATIENT: SOTO BATES UNIT: [id number] ADM DATE: 09/28/19 AGE: 74 : 46 SEX: F ROOM/BED: D.2130 AUTHOR: MARYSOL SAL PHYSICIAN: REFERRING PHYSICIAN: RASHEED HEARD MD DATE OF SERVICE: 10/02/19 Discharge Plan Patient Name: PAULO NONDADEE Facility: [facility]:[place] : 1945 Planned Disposition: Longterm Facility Anticipated Discharge Date: Discharge Date: Expected LOS: Initial Reviewer: [id number] Initial Review Date: 09/29/2019 Generated: 10/02/19 9:47 am Comments DCP- Discharge Planning Updated by [email or web address]: Oscar Velarde on 10/02/19 7:[address] Patient Name: SOTO BATES Encounter No: [id number] : 1945 Primary Insurance: MEDICARE A & B Anticipated DC Date: Planned Disposition: Longterm Facility External Planned Provider: [facility], MEDICARE REHAB BED Discharge Planning Comments: CM FAXED UPDATE TO THE [facility] VIA [employer] AT [phone]. FOR DISCHARGE, FAX DISCHARGE INFORMATION TO THE [facility], , NURSE REPORT TO BE CALLED TO THE [facility] AT [phone]. THE [facility] TO ARRANGE VAN CLINICAL ACCOUNT EXECUTIVE. Petroleum Engineering Teacher: Oscar Velarde DCP- Discharge Planning Updated by [id number]: Oscar Velarde on 09/29/19 12:[address] Patient Name: NONDADEE Rosalinda BATES Admission Status: ER Accout number: [id number] Admission Date: 09-28-2019 : 1945 Admission Diagnosis: Attending: RASHEED HEARD Current LOS: 1 Anticipated DC Date: Planned Disposition: Longterm Facility Primary Insurance: MEDICARE A & B PLANNED EXTERNAL PROVIDER: [facility], MEDICARE REHAB BED Discharge Planning Comments: CM MET WITH PT IN ROOM TO DISCUSS DISCHARGE PLANNING AND NEEDS. PT REPORTS SHE WAS LIVING AT HOME INDEPENDENTLY BUT HAS BEEN AT THE [facility] FOR REHAB. PT HAS NO Bedside Commode, Glucometer, Nebulizer, Rolling Walker, Shower Chair AND A Wheelchair FROM [facility]. CM DISCUSSED AVAILABILITY OF HOME HEALTH, REHAB SERVICES AND MEDICAL EQUIPMENT. PT PLANS TO RETURN TO THE [facility] FOR CONTINUED REHAB AT DISCHARGE. CHOICE SIGNED. CM NOTIFIED ISABELL ALCALA OF THE [facility], . CM FAXED UPDATE TO THE [facility] VIA [employer] AT [phone]. FOR DISCHARGE, FAX DISCHARGE INFORMATION TO THE [facility], , NURSE REPORT TO BE CALLED TO THE [facility] AT [phone]. THE [facility] TO ARRANGE VAN CLINICAL ACCOUNT EXECUTIVE. Petroleum Engineering Teacher: Oscar Velarde DCPIA - Discharge Planning Initial Assessment Updated by [id number]: Oscar Velarde on 09/29/19 1:57 pm * Is the patient Alert and Oriented? Yes * How many steps to enter\exit or inside your home? NONE * PCP DR. WILLAMS * Pharmacy [facility] [place] * Preadmission Environment Longterm Facility * Facility Name [facility] * ADLs Partial Dependent * Partial ADLs (Assistance needed) Ambulation Bathing Medication Management * Equipment Bedside Commode Glucometer Nebulizer Rolling Walker Shower Chair Wheelchair * Other Equipment [facility] - MEDICAL EQUIPMENT PROVIDER PREFERENCE * List name and contact numbers for known caregivers / representatives who currently or will assist patient after discharge: ALFREDO HUA, GRAND DAUGHTER, * Verbal permission to speak to the caregivers and representatives has been obtained from the patient. N/A * Community resources currently utilized Other * Please name any agencies selected above. OUTPATIENT DIALYSIS, MWF, 1130, [facility] * Additional services required to return to the preadmission environment? No * Can the patient safely return to the preadmission environment? Yes * Has this patient been hospitalized within the prior 30 days at any hospital? Yes Coverage Notice Reviewer: [id number] - Oscar Velarde Notice Issued Date-Time: 09/29/2019 13:30 Notice Type: Patient Choice Letter Notice Delivered To: Patient Relationship to Patient: Cook Helper Vegetable Name: Delivery Method: HAND - Hand Delivered Kimberly Days: Prior Verbal Notification: Recipient Understood Notice: Yes Recipient Signature: Yes Med Rec Note Co-signed by Attending: Coverage Notice Comment: [facility] Last DP export: 09/29/19 1:05 Patient Name: SUIT, NONDADEE Page 67070 at 0847 All edits/amendments must be made on the electronic document DICTATION DATE: 10/02/[address] JUDGE: KERMIT 10/02/19846 RPT#: [id number] DC DATE: STATUS: ADM IN [facility] [address] [place] [address] END OF REPORT
[2019-10-02 12:06] VITALS: BP 161/76
--- NOTE | 2019-10-02 12:59 | NUR ---
PATIENT IS STABLE AND VSS. PATIENT DENIES ANY NEEDS OR PAIN. WILL CONTINUE TO MONITOR. SR UP X 2 BED IN LOW POSITION AND CALL LIGHT IN REACH.
[2019-10-02 16:05] VITALS: BP 147/68
--- NOTE | 2019-10-02 19:48 | NUR ---
RECEIVED REPORT, BED IS LOW, RECEIVING DIALYSIS NOW IN ROOM, CALL LIGHT IN REACH, WILL CONTINUE PLAN OF CARE
[2019-10-02 20:00] VITALS: BP 146/98
[2019-10-03] VITALS (7 sets, daily range): BP systolic 127–158; BP diastolic 63–76
--- NOTE | 2019-10-03 03:06 | NUR ---
I have reviewed this patient and I concur with the Shift Assessment completed by the Licensed Practical Nurse today this shift.
[2019-10-03 06:39] LABS: BASOPHILS 0.5 % (0-2); EOSINOPHILS 3.2 % (0-7); HEMATOCRIT 41.8 % (36.0-48.0); HEMOGLOBIN 12.7 g/dL (12-16); IMMATURE GRANULOCYTES 0.2 % (0-5); LYMPHOCYTES 9.4 % (15-50); MCH 32.2 pg (26.0-34.0); MCHC 30.4 g/dL (31.0-37.0); MCV 105.8 fL (80.0-100.0); MEAN PLATELET VOLUME 12.4 fL (7.4-10.4); MONOCYTES 8.1 % (2-11); NEUTROPHILS 78.6 % (40-80); PLATELET COUNT 128 10x3/uL (130-400); RBC 3.95 10x6/uL (4.00-5.40); RDW 18.8 % (11.5-14.5); WBC 8.1 10x3/uL (4.8-10.8)
--- NOTE | 2019-10-03 07:10 | NUR ---
REPORT RECEIVED FROM BANKRUPTCY JUDGE AND PATIENT CARE ASSUMED. PATIENT SITTING UP ON SIDE OF BED AWAKE, ALERT AND ORIENTED X 4. PATIENT IS STABLE AND VSS. PATIENT DENEIS ANY NEEDS OR PAIN. WILL CONTINUE TO MONITOR. SR UP X 2 BED IN LOW POSITION AND CALL LIGHT IN REACH.
[2019-10-03 07:23] LABS: ANION GAP 18.3 mmol/L (8-16); CALCIUM 7.7 mg/dL (8.5-10.1); CREATININE - SERUM 4.4 mg/dL (0.6-1.3); POTASSIUM - SERUM 4.3 mmol/L (3.5-5.1)
--- NOTE | 2019-10-03 11:30 | NUR ---
PATIENT UP WALKING WITH PT.
--- NOTE | 2019-10-03 17:47 | NUR ---
PATIENT SITTING UP IN BS CHAIR . PATIENT IS STABLE AND VSS. PAGTIENT DENIES ANY NEEDS OR PAIN. WILL CONTINUE TO MONITOR. CALL LIGHT IN REACH.
--- NOTE | 2019-10-03 19:30 | NUR ---
RECEIVED REPORT, WILL ASSUME CARE OF PT, PT IS SITTING IN CHAIR, DENIES ANY NEEDS AT THIS TIME, CALL LIGHT IN REACH, WILL CONTINUE PLAN OF CARE
[2019-10-04 04:00] VITALS: BP 158/68
--- NOTE | 2019-10-04 05:53 | NUR ---
I have reviewed this patient and I concur with the Shift Assessment completed by the Licensed Practical Nurse today this shift.
[2019-10-04 08:00] VITALS: BP 153/75
--- NOTE | 2019-10-04 08:07 | NUR ---
RECEIVED PT ALERT AND ORIENTED. ASSIST OUT OF BED TO CHAIR. PT IS WEAK AND BARELY COULD WALK WITH USE OF WALKER. STATES SHE STAYS AT [facility] RIGHT NOW. RIGHT HAND WITH SOME SWELLING, IV NOTED BUT PATENT AND FLUSHED EASILY. WILL MONITOR.
[2019-10-04 12:00] VITALS: BP 154/70
--- NOTE | 2019-10-04 14:05 | NUR ---
PT ASSIST BACK TO BED WITH TWO PERSON AND WALKER. MEPILEX DRESSING APPLIED TO COCCYX FOR REDNESS.
[2019-10-04 16:00] VITALS: BP 139/64
--- NOTE | 2019-10-04 19:20 | NUR ---
RECEIVED REPORT, WILL ASSUME CARE OF PT, SLEEPING, NO DISTRESS NOTICED AT THIS TIME, BED IS LOW, SRX2, CALL LIGHT IN REACH, WILL CONTINUE PLAN OF CARE
[2019-10-04 20:00] VITALS: BP 131/69
[2019-10-05 00:23] VITALS: BP 141/71
--- NOTE | 2019-10-05 02:55 | NUR ---
I have reviewed this patient and I concur with the Shift Assessment completed by the Licensed Practical Nurse today this shift.
[2019-10-05 04:00] VITALS: BP 143/73
[2019-10-05 09:32] VITALS: BP 151/100
--- NOTE | 2019-10-05 12:19 | NUR ---
DIALYSIS COORDINATOR: [facility] MWF @ 10:30. MET WITH PATIENT BEDSIDE IN ROOM. RECORDS TO HOME UNIT. VIKTORIYA AHUJA.
[2019-10-05 13:09] VITALS: BP 148/73
[2019-10-05 16:45] VITALS: BP 137/61
[2019-10-05 20:00] VITALS: BP 150/69
[2019-10-06] VITALS: BP 162/78
[2019-10-06 04:00] VITALS: BP 156/80
--- NOTE | 2019-10-06 07:00 | NUR ---
RECIEVED REPORT. ALERT AND ORIENTED X4. SITTING UP IN BED. GLUCOSE 38. ASYMPTOMATIC. ADMINISTER D50 PER PROTOCOL. RECHECK FSBS-163. RT HAND IV SITE REDRESSED. DENIES ANY NEEDS AT THIS TIME. CONTINUE PLAN OF CARE AND SAFETY PRECAUTIONS.
[2019-10-06 07:02] LABS: BASOPHILS 0.9 % (0-2); EOSINOPHILS 1.7 % (0-7); HEMATOCRIT 43.1 % (36.0-48.0); HEMOGLOBIN 13.2 g/dL (12-16); IMMATURE GRANULOCYTES 0.4 % (0-5); LYMPHOCYTES 8.2 % (15-50); MCH 31.9 pg (26.0-34.0); MCHC 30.6 g/dL (31.0-37.0); MCV 104.1 fL (80.0-100.0); MEAN PLATELET VOLUME 11.5 fL (7.4-10.4); MONOCYTES 9.5 % (2-11); NEUTROPHILS 79.3 % (40-80); PLATELET COUNT 138 10x3/uL (130-400); RBC 4.14 10x6/uL (4.00-5.40); RDW 18.2 % (11.5-14.5)
[2019-10-06 07:23] LABS: ANION GAP 14.5 mmol/L (8-16); CALCIUM 8.4 mg/dL (8.5-10.1); PHOSPHOROUS 4.4 mg/dL (2.5-4.9); POTASSIUM - SERUM 4.5 mmol/L (3.5-5.1)
[2019-10-06] MEDS ORDERED: ELIQUIS2.5 MG PO (08:39)
[2019-10-06] MEDS ORDERED: FLORAJEN3 CAPS460 MG PO (08:39)
[2019-10-06] MEDS ORDERED: ISORDIL40 MG PO (08:39)
[2019-10-06] MEDS ORDERED: ZYVOX600 MG PO (08:39)
[2019-10-06] MEDS ORDERED: REGLAN SOL10 MG/10 M PO (08:40)
[2019-10-06 08:41] VITALS: BP 153/78
--- NOTE | 2019-10-06 08:44 | NUR ---
UPON ADMIT, PATIENT HAS ALREADY HAD A FLU SHOT THIS YEAR.
--- NOTE | 2019-10-06 09:06 | MORECARE ---
CASE MANAGEMENT DISCHARGE SUMMARY PATIENT: SOTO BATES UNIT: [id number] ADM DATE: 09/28/19 AGE: 74 : 46 SEX: F ROOM/BED: D.2130 AUTHOR: MARYSOL SAL PHYSICIAN: REFERRING PHYSICIAN: RASHEED HEARD MD DATE OF SERVICE: 10/06/19 Discharge Plan Patient Name: PAULO NONDADEE Facility: [facility] : 1945 Planned Disposition: Senior Living Facility Anticipated Discharge Date: Discharge Date: Expected LOS: Initial Reviewer: [id number] Initial Review Date: 09/29/2019 Generated: 10/06/19 10:06 am DCP- Discharge Planning Updated by [email or web address]: Oscar Velarde on 10/02/19 8:[address] Patient Name: SOTO BATES Encounter No: [id number] : 1945 Primary Insurance: MEDICARE A & B Anticipated DC Date: Planned Disposition: Senior Living Facility External Planned Provider: [facility], MEDICARE REHAB BED Discharge Planning Comments: CM FAXED UPDATE TO [facility] VIA [employer] AT [phone]. FOR DISCHARGE, FAX DISCHARGE INFORMATION TO [facility], , NURSE REPORT TO BE CALLED TO [facility] AT [phone]. [facility] TO ARRANGE VAN EEG TECH. Lumber Material Handler: Oscar Velarde DCP- Discharge Planning Updated by [id number]: Oscar Velarde on 09/29/19 1:[address] Patient Name: NONDADEJose BATES Admission Status: ER Accout number: [id number] Admission Date: 09-28-2019 : 1945 Admission Diagnosis: Attending: RASHEED HEARD Current LOS: 1 Anticipated DC Date: Planned Disposition: Senior Living Facility Primary Insurance: MEDICARE A & B PLANNED EXTERNAL PROVIDER: [facility], MEDICARE REHAB BED Discharge Planning Comments: CM MET WITH PT IN ROOM TO DISCUSS DISCHARGE PLANNING AND NEEDS. PT REPORTS SHE WAS LIVING AT HOME INDEPENDENTLY BUT HAS BEEN AT [facility] FOR REHAB. PT HAS NO Bedside Commode, Glucometer, Nebulizer, Rolling Walker, Shower Chair AND A Wheelchair FROM [facility]. CM DISCUSSED AVAILABILITY OF HOME HEALTH, REHAB SERVICES AND MEDICAL EQUIPMENT. PT PLANS TO RETURN TO [facility] FOR CONTINUED REHAB AT DISCHARGE. CHOICE SIGNED. CM NOTIFIED ISABELL ALCALA OF THE [facility], . CM FAXED UPDATE TO [facility] VIA [employer] AT [phone]. FOR DISCHARGE, FAX DISCHARGE INFORMATION TO [facility], , NURSE REPORT TO BE CALLED TO [facility] AT [phone]. [facility] TO ARRANGE VAN EEG TECH. Lumber Material Handler: Oscar Velarde DCPIA - Discharge Planning Initial Assessment Updated by [id number]: Oscar Velarde on 09/29/19 1:57 pm * Is the patient Alert and Oriented? Yes * How many steps to enter\exit or inside your home? NONE * PCP DR. WILLAMS * Pharmacy [facility] [place] * Preadmission Environment Senior Living Facility * Facility Name [facility] * ADLs Partial Dependent * Partial ADLs (Assistance needed) Ambulation Bathing Medication Management * Equipment Bedside Commode Glucometer Nebulizer Rolling Walker Shower Chair Wheelchair * Other Equipment [employer] - MEDICAL EQUIPMENT PROVIDER PREFERENCE * List name and contact numbers for known caregivers / representatives who currently or will assist patient after discharge: ALFREDO UHA, GRAND DAUGHTER, * Verbal permission to speak to the caregivers and representatives has been obtained from the patient. N/A * Community resources currently utilized Other * Please name any agencies selected above. OUTPATIENT DIALYSIS, MWF, 1130, [facility] * Additional services required to return to the preadmission environment? No * Can the patient safely return to the preadmission environment? Yes * Has this patient been hospitalized within the prior 30 days at any hospital? Yes External Providers External Provider: [facility] Next Contact Date: 09/29/2019 Service Request Date: Service Type: Resolution: Reviewer: Comments: Coverage Notice Reviewer: [id number] - Oscar Velarde Notice Issued Date-Time: 09/29/2019 13:30 Notice Type: Patient Choice Letter Notice Delivered To: Patient Relationship to Patient: Discovery Manager Name: Delivery Method: HAND - Hand Delivered Kimberly Days: Prior Verbal Notification: Recipient Understood Notice: Yes Recipient Signature: Yes Med Rec Note Co-signed by Attending: Coverage Notice Comment: SILVIA Clarke DP export: 10/02/19 8:47 a Patient Name: SOTO BATES Page 76407 at 0906 All edits/amendments must be made on the electronic document DICTATION DATE: 10/06/19905 PACU NURSE: KERMIT 10/06/19905 RPT#: [id number] DC DATE: STATUS: ADM IN [facility] [address] [place] [address] END OF REPORT
--- NOTE | 2019-10-06 09:28 | MORECARE ---
CASE MANAGEMENT DISCHARGE SUMMARY PATIENT: SOTO BATES UNIT: [id number] ADM DATE: 09/28/19 AGE: 74 : 46 SEX: F ROOM/BED: D.2130 AUTHOR: MARYSOL SAL PHYSICIAN: REFERRING PHYSICIAN: RASHEED HEARD MD DATE OF SERVICE: 10/06/19 Discharge Plan Patient Name: SOTO BATES Facility: [facility]:[place] : 1945 Planned Disposition: Senior Living Facility Anticipated Discharge Date: 10/06/19 Discharge Date: Expected LOS: 8 Initial Reviewer: [id number] Initial Review Date: 09/29/2019 Generated: 10/06/19 10:28 am DCP- Discharge Planning Updated by [email or web address]: Oscar Velarde on 10/02/19 8:[address] Patient Name: SOTO BATES Encounter No: [id number] : 1945 Primary Insurance: MEDICARE A & B Anticipated DC Date: Planned Disposition: Senior Living Facility External Planned Provider: [facility], MEDICARE REHAB BED Discharge Planning Comments: CM FAXED UPDATE TO THE [facility] VIA [employer] AT [phone]. FOR DISCHARGE, FAX DISCHARGE INFORMATION TO THE [facility], , NURSE REPORT TO BE CALLED TO THE [facility] AT [phone]. THE [facility] TO ARRANGE VAN VP OF CUSTOMER EXPERIENCE STRATEGY. Professional Skateboarder: Oscar Velarde DCP- Discharge Planning Updated by [id number]: Oscar Velarde on 09/29/19 1:[address] Patient Name: SOTO BATES Admission Status: ER Accout number: [id number] Admission Date: 09-28-2019 : 1945 Admission Diagnosis: Attending: RASHEED HEARD Current LOS: 1 Anticipated DC Date: Planned Disposition: Senior Living Facility Primary Insurance: MEDICARE A & B PLANNED EXTERNAL PROVIDER: [facility], MEDICARE REHAB BED Discharge Planning Comments: CM MET WITH PT IN ROOM TO DISCUSS DISCHARGE PLANNING AND NEEDS. PT REPORTS SHE WAS LIVING AT HOME INDEPENDENTLY BUT HAS BEEN AT [facility] FOR REHAB. PT HAS NO Bedside Commode, Glucometer, Nebulizer, Rolling Walker, Shower Chair AND A Wheelchair FROM [facility]. CM DISCUSSED AVAILABILITY OF HOME HEALTH, REHAB SERVICES AND MEDICAL EQUIPMENT. PT PLANS TO RETURN TO THE [facility] FOR CONTINUED REHAB AT DISCHARGE. CHOICE SIGNED. CM NOTIFIED ISABELL ALCALA OF THE [facility], . CM FAXED UPDATE TO THE [facility] VIA [employer] AT [phone]. FOR DISCHARGE, FAX DISCHARGE INFORMATION TO THE [facility], , NURSE REPORT TO BE CALLED TO THE [facility] AT [phone]. THE [facility] TO ARRANGE VAN VP OF CUSTOMER EXPERIENCE STRATEGY. Professional Skateboarder: Oscar Velarde DCPIA - Discharge Planning Initial Assessment Updated by LICHA: Oscar Velarde on 09/29/19 1:57 pm * Is the patient Alert and Oriented? Yes * How many steps to enter\exit or inside your home? NONE * PCP DR. WILLAMS * Pharmacy [facility] [place] * Preadmission Environment Senior Living Facility * Facility Name [facility] * ADLs Partial Dependent * Partial ADLs (Assistance needed) Ambulation Bathing Medication Management * Equipment Bedside Commode Glucometer Nebulizer Rolling Walker Shower Chair Wheelchair * Other Equipment [employer] - MEDICAL EQUIPMENT PROVIDER PREFERENCE * List name and contact numbers for known caregivers / representatives who currently or will assist patient after discharge: ALFREDO HUA, GRAND DAUGHTER, * Verbal permission to speak to the caregivers and representatives has been obtained from the patient. N/A * Community resources currently utilized Other * Please name any agencies selected above. OUTPATIENT DIALYSIS, [facility], 1130, [facility] * Additional services required to return to the preadmission environment? No * Can the patient safely return to the preadmission environment? Yes * Has this patient been hospitalized within the prior 30 days at any hospital? Yes Coverage Notice Reviewer: [id number] Velarde Notice Issued Date-Time: 09/29/2019 13:30 Notice Type: Patient Choice Letter Notice Delivered To: Patient Relationship to Patient: Saw Straightener Name: Delivery Method: HAND - Hand Delivered Kimberly Days: Prior Verbal Notification: Recipient Understood Notice: Yes Recipient Signature: Yes Med Rec Note Co-signed by Attending: Coverage Notice Comment: [facility] Reviewer: LICHA Velarde Notice Issued Date-Time: 10/06/2019 9:15 Notice Type: IM Discharge Notice Notice Delivered To: Patient Relationship to Patient: Saw Straightener Name: Delivery Method: HAND - Hand Delivered Kimberly Days: Prior Verbal Notification: Recipient Understood Notice: Yes Recipient Signature: Yes Med Rec Note Co-signed by Attending: Coverage Notice Comment: Last DP export: 10/06/19 8:06 a Patient Name: SOTO BATES Page 83232 at 0928 All edits/amendments must be made on the electronic document DICTATION DATE: 10/06/19926 AIRFRAME TECHNICAL OFFICER: KERMIT 10/06/19926 RPT#: [id number] DC DATE: STATUS: ADM IN [facility] [address] [place] [address] END OF REPORT
--- NOTE | 2019-10-06 09:36 | MORECARE ---
CASE MANAGEMENT DISCHARGE SUMMARY PATIENT: SOTO BATES UNIT: [id number] ADM DATE: 09/28/19 AGE: 74 : 46 SEX: F ROOM/BED: D.2130 AUTHOR: MARYSOL SAL PHYSICIAN: REFERRING PHYSICIAN: RASHEED HEARD MD DATE OF SERVICE: 10/06/19 Discharge Plan Patient Name: PATRIC BATESADEE Facility: [facility]:[place] : 1945 Planned Disposition: Fdc Facility Anticipated Discharge Date: 10/06/19 Discharge Date: Expected LOS: 8 Initial Reviewer: [id number] Initial Review Date: 09/29/2019 Generated: 10/06/19 10:36 am Comments DCP- Discharge Planning Updated by [id number]: Oscar Velarde on 10/06/19 8:[address] Patient Name: NONDADEJose RODRIGUEZIT Encounter No: [id number] : 1945 Primary Insurance: MEDICARE A & B Anticipated DC Date: 10-06-2019 Planned Disposition: Fdc Facility External Planned Provider: [facility], MEDICARE REHAB BED DCP follow-up note: CM FAXED UPDATE TO THE [facility] VIA [employer] AT [phone]. SENT MESSAGE NOTIFYING OF DISCHARGE AND NEED FOR VAN HORSE BREAKER TODAY. CM FAXED DISCHARGE INFORMATION TO THE [facility], , PATIENT NOTIFIED, IN AGREEMENT WITH DISCHARGE BACK TO SKILLED BED AT THE [facility]. IMPORTANT MESSAGE FROM MEDICARE PROVIDED AND EXPLAINED. FLASH RANGING CREWMEMBER NURSE NOTIFIED. NURSE REPORT TO BE CALLED TO THE [facility] AT [phone]. THE [facility] TO ARRANGE VAN HORSE BREAKER. Senior Risk Analyst: Oscar Velarde DCP- Discharge Planning Updated by [id number]: Oscar Velarde on 10/02/19 8:[address] Patient Name: NONDADEE D SUIT Encounter No: [id number] : 1945 Primary Insurance: MEDICARE A & B Anticipated DC Date: Planned Disposition: Fdc Facility External Planned Provider: [facility], MEDICARE REHAB BED Discharge Planning Comments: CM FAXED UPDATE TO THE [facility] VIA [employer] AT [phone]. FOR DISCHARGE, FAX DISCHARGE INFORMATION TO THE [facility], , NURSE REPORT TO BE CALLED TO THE [facility] AT [phone]. THE [facility] TO ARRANGE VAN HORSE BREAKER. Senior Risk Analyst: Oscar Velarde DCP- Discharge Planning Updated by [id number]: Oscar Velarde on 09/29/19 1:[address] Patient Name: NONDADEE D SUIT Admission Status: ER Accout number: [id number] Admission Date: 09-28-2019 : 1945 Admission Diagnosis: Attending: RASHEED HEARD Current LOS: 1 Anticipated DC Date: Planned Disposition: Fdc Facility Primary Insurance: MEDICARE A & B PLANNED EXTERNAL PROVIDER: [facility], MEDICARE REHAB BED Discharge Planning Comments: CM MET WITH PT IN ROOM TO DISCUSS DISCHARGE PLANNING AND NEEDS. PT REPORTS SHE WAS LIVING AT HOME INDEPENDENTLY BUT HAS BEEN AT THE [facility] FOR REHAB. PT HAS NO Bedside Commode, Glucometer, Nebulizer, Rolling Walker, Shower Chair AND A Wheelchair FROM [facility]. CM DISCUSSED AVAILABILITY OF HOME HEALTH, REHAB SERVICES AND MEDICAL EQUIPMENT. PT PLANS TO RETURN TO THE [facility] FOR CONTINUED REHAB AT DISCHARGE. CHOICE SIGNED. CM NOTIFIED ISABELL ALCALA OF THE [facility], . CM FAXED UPDATE TO THE [facility] VIA [employer] AT [phone]. FOR DISCHARGE, FAX DISCHARGE INFORMATION TO THE [facility], , NURSE REPORT TO BE CALLED TO THE [facility] AT [phone]. THE [facility] TO ARRANGE VAN HORSE BREAKER. Senior Risk Analyst: Oscar Velarde DCPIA - Discharge Planning Initial Assessment Updated by [id number]: Oscar Velarde on 09/29/19 1:57 pm * Is the patient Alert and Oriented? Yes * How many steps to enter\exit or inside your home? NONE * PCP DR. WILLAMS * Pharmacy [facility] [place] * Preadmission Environment Fdc Facility * Facility Name [facility] * ADLs Partial Dependent * Partial ADLs (Assistance needed) Ambulation Bathing Medication Management * Equipment Bedside Commode Glucometer Nebulizer Rolling Walker Shower Chair Wheelchair * Other Equipment [employer] - MEDICAL EQUIPMENT PROVIDER PREFERENCE * List name and contact numbers for known caregivers / representatives who currently or will assist patient after discharge: ALFREDO HUA, GRAND DAUGHTER, * Verbal permission to speak to the caregivers and representatives has been obtained from the patient. N/A * Community resources currently utilized Other * Please name any agencies selected above. OUTPATIENT DIALYSIS, MWF, 1130, [facility] * Additional services required to return to the preadmission environment? No * Can the patient safely return to the preadmission environment? Yes * Has this patient been hospitalized within the prior 30 days at any hospital? Yes Coverage Notice Reviewer: [id number] Velarde Notice Issued Date-Time: 09/29/2019 13:30 Notice Type: Patient Choice Letter Notice Delivered To: Patient Relationship to Patient: Handle Machine Operator Name: Delivery Method: HAND - Hand Delivered Kimberly Days: Prior Verbal Notification: Recipient Understood Notice: Yes Recipient Signature: Yes Med Rec Note Co-signed by Attending: Coverage Notice Comment: [facility] Reviewer: [id number] Velarde Notice Issued Date-Time: 10/06/2019 9:15 Notice Type: IM Discharge Notice Notice Delivered To: Patient Relationship to Patient: Handle Machine Operator Name: Delivery Method: HAND - Hand Delivered Kimberly Days: Prior Verbal Notification: Recipient Understood Notice: Yes Recipient Signature: Yes Med Rec Note Co-signed by Attending: Coverage Notice Comment: Last DP export: 10/06/19 8:28 a Patient Name: SOTO BATES Page 79869 at 0936 All edits/amendments must be made on the electronic document DICTATION DATE: 10/06/19935 CRIME INVESTIGATOR SPECIAL AGENT: KERMIT 10/06/19935 RPT#: [id number] DC DATE: STATUS: ADM IN [facility] [address] [place] [address] END OF REPORT
[2019-10-06 10:10] LABS: HEPATITIS C ANTIBODY <0.1 S/CO RAT (0.0-0.9)
--- NOTE | 2019-10-06 12:54 | NUR ---
ALERT AND ORIENTED X4. SITTING UP ON SIDE OF BED. REPORT CALLED TO DAVID ECHEVERRIA AT THE [facility]. VAN WILL ARRIVE AROUND 1530. BED BATH AND LINEN CHANGE COMPLETE. DENIES ANY NEEDS AT THIS TIME. CONTINUE PLAN OF CARE AND SAFETY PRECAUTIONS.
[2019-10-06 13:00] VITALS: BP 148/88
--- NOTE | 2019-10-06 15:27 | NUR ---
ALERT AND ORIENTED X4. REFUSE TO SIGN DISCHARGE PAPERS. DC RT HAND IV TIP INTACT. VAN ARRIVES FOR TRANSPORT. ASSIST TO WHEELCHAIR. ESCORT TO RIDE. REMAINS FREE FROM INJURY.
--- NOTE | 2019-10-08 07:04 | DS ---
PATIENT:SOTO MCCLOUD :47 MEDICAL RECORD: [id number] DISCHARGE SUMMARY ADMISSION DATE: 09/28/19 DISCHARGE DATE: 10/06/19 HOSPITAL COURSE: Ms. Mccloud is a 74-year-old white female with end-stage renal disease, chronic [facility] confinement, I see her regularly weekly in [facility]. Comes to the Emergency Room with a low-grade temperature and shortness of breath. Physical exam revealed a possible infiltrate. CTA revealed possible pulmonary embolus and She was begun on heparin therapy followed by Eliquis therapy and she will remain on Eliquis therapy for probable recurrent pulmonary emboli. She was cultured and had a positive urine culture of VRE, which was treated with parenteral followed by oral Zyvox and will be finishing Zyvox at the [facility]. Due to nausea and vomiting, had a gastric emptying scan after CT of the abdomen was essentially negative and it was very positive, so she was begun on Reglan therapy and her nausea and vomiting improved. At the time of discharge, her edema had resolved, her shortness of breath had resolved and she was stable on her current medication regimen. DISCHARGE DIAGNOSES: 1. Urinary tract infection with vancomycin-resistant Enterococcus. 2. 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 3. Reduced gastric emptying, on Reglan therapy. 4. Diabetes mellitus. 5. History of hypertension. 6. End-stage renal disease. 7. Diabetes mellitus. PLAN: The patient will be discharged back to the [facility]. We will see her in 2 weeks in dialysis, should continue her renal dialysis 3 times weekly at [facility]. DISCHARGE MEDICATIONS: Zyvox 600 mg b.i.d. for 2 more days, Reglan liquid 10 mg a.c., Synthroid 125 daily. She will have isosorbide 40 b.i.d., Lasix 40 daily, folic acid 0.4 mg daily, Lipitor 80 mg daily, Zyloprim 100 mg daily, Glucotrol 10 mg daily, Effexor 25 h.s., Januvia 50 h.s., melatonin 3 bedtime, Cordarone 200 b.i.d., Renagel 800 t.i.d., Coreg 6.25 b.i.d., tramadol p.r.n., PhosLo 1 b.i.d., Eliquis 2.5 mg b.i.d., lactobacillus p.o. daily. TRANSINT:[id number] Voice Confirmation ID: [id number] DOCUMENT ID: [id number] NINA SOTO MD at 0704 CC: [id number] DICTATION DATE: 10/06/19711 PACKAGING CLERK: 10/07/1928 DIS IN 10/06/19 [place] [id number] [place] [id number]
== END 2019-10-06 15:29 | DRG 175 ==
LOC: D.ER 21:30 → D.M2 09-28 01:01 → D.ICU 09-28 01:01 → D.M2 09-28 11:37
PROVIDERS: Emergency Medicine; Internal Medicine Nephrology; ADMIT Internal Medicine Nephrology; ATTEND Internal Medicine Nephrology
DX: I26.99 Other pulmonary embolism without acute cor pulmonale (principal); J18.9 Pneumonia, unspecified organism; N18.6 End stage renal disease; N39.0 Urinary tract infection, site not specified; I13.2 Hypertensive heart and chronic kidney disease with heart failure and with stage 5 chronic kidney disease, or end stage renal disease; I50.9 Heart failure, unspecified; E78.5 Hyperlipidemia, unspecified; E87.5 Hyperkalemia; E11.22 Type 2 diabetes mellitus with diabetic chronic kidney disease; E11.43 Type 2 diabetes mellitus with diabetic autonomic (poly)neuropathy; K31.84 Gastroparesis